=== PATIENT | female | born 2000 | race Hispanic/Latino ===

== ENCOUNTER → 2023-12-12 | Emergency (ER) | payer SELFPAY ==
--- OUTSIDE RECORDS SUMMARY | 2023-12-12 21:21 | XMS REPORT | Continuity of Care Document ---
Author Name Unknown Address [address] [place] [address] [facility] Address [address] [place] [address] Care Team Providers Care Noc Engineer Name Role Phone YULIA LOVE Primary Care Physician Unavailab ARTURO Brody Attending Clinician Unavaila YULIA Rodríguez Attending Clinician Unavailable Yulia Morrell Attending Clinician [phone] Visit/Fp, [facility] Nurse Attending Clinician Un available John Chadwick MD Attending Clinician + [phone] Mae Resendiz DO Attending Clinician [phone] Kahlil Lima MD Attending Clinician [phone] Gayla Harris MD Attending Clinician [phone] Korey Yo DO Attending Clinician [phone] OUMOU FREEMAN Attending Clinician Unavailable Oumou Freeman PA-C Attending Clinician + [phone] 2, [facility] Nst Ultrasound Attending Clinician Unavailable 5, [facility] Usg Room Attending Clinician Unavaila JULIA Cornelius Attending Clinician Unavailable Julia Ramirez MD Attending Clinician [phone] Provider, [facility] Temp Attending Clinician Angela TAMI Whitaker Attending Clinician UnavailTAMI Gusman Attending Clinician UnavailDARA Heath Attending Clinician Unavailable DARA CARNEY Attending Clinician Unavailable Dara Carney MD Attending Clinician [phone] MAE RESENDIZ Attending Clinician Unavailable 3, [facility] Room Attending Clinician Unavailadela Farias MD, Felicitas Yepez Attending Clinician + Ronak Herr MD Attending Clinician + [phone] RONAK HERR Attending Clinician Unavaila GLADYS [place] Attending Clinician Unavailable Gladys Romeor MD Attending Clinician [phone] Marta WELLER, Hailey Attending Clinician UnavailRIC Elder Attending Clinician Unavailable RIC CAMPOVERDE Attending Clinician Unavailable Fellow, [facility] Attending Clinician Un available Ric Campoverde MD Attending Clinician [phone] Lab, [facility] Attending Clinician Unavailable 2, [facility] Room Attending Clinician UnavailAravind Hazel MD Attending Clinician + [phone] ARAVIND FISHER Attending Clinician UnavailYAMILEX Haynes Attending Clinician Unavailable Yamilex Vela MD Attending Clinician [phone] Pastor WELLER, Annamarie Collier Attending Clinician Unavaila ISIS Alanis Attending Clinician Unavaila Yamilex Will DO Attending Clinician [phone] YAMILEX STEPHENS Attending Clinician Unavailab JESÚS Watson Attending Clinician Unavailable Pgy1 Attending Clinician Unavailable Jesús Jennings MD Attending Clinician + [phone] Doctor Unassigned, [place] Attending Clinician U Inessa Rao Attending Clinician Unavailable Doc Mccormick Attending Clinician Unavailable Ye Bettencourt Attending Clinician Unavailable Bisi Valladares MD Attending Clinician [phone] BISI VALLADARES Attending Clinician Unavailable KOREY YO Admitting Clinician Unavailable Mae Resendiz DO Admitting Clinician [phone] MAE RESENDIZ Admitting Clinician Unavailable JULIA RAMIREZ Admitting Clinician Unavailable Julia Ramirez MD Admitting Clinician DARA CARNEY Admitting Clinician Unavailable Dara Carney MD Admitting Clinician GLADYS ROMERO Admitting Clinician Unavailable Gladys Romero MD Admitting Clinician YAMILEX STEPHENS Admitting Clinician Unavailab BISI Cortes Admitting Clinician Unavailable Payers Payer Name Policy Type Policy Number Effective Date Expirati on Date Source [facility] [id number] 2021 00:00:00 MEDICAID PENDING PENDING 2021 00:00:00 Problems Condition Name Condition Details Condition Category Status Onset Date Resolution Date Last Treatment Date Treating Clinician Comments Source delivery delivered delivery delivered Disease Active 2021-0 7-29 00:00: 00 [facility] hemorrhage hemorrhage Disease Active 0 7-29 00:00: 00 [facility] Chronic hypertensi on Chronic hypertensi on Disease Active 2021-0 7-29 00:00: 00 [facility] delivery delivered delivery delivered Disease Active 2021-0 7-29 00:00: 00 [facility] 37 weeks gestation of 37 weeks gestation of Disease Active 2021-0 7-23 00:00: 00 [facility] 36 weeks gestation of 36 weeks gestation of Disease Active 2021-0 7-21 00:00: 00 [facility] Vaginal discharge during in third trimester Vaginal discharge during in third trimester Disease Active 2021-0 6-28 00:00: 00 [facility] CARLITOS (amniotic fluid index) borderline low CARLITOS (amniotic fluid index) borderline low Disease Active 2021-0 6-26 00:00: 00 [facility] 33 weeks gestation of 33 weeks gestation of Disease Active 2021-0 6-25 00:00: 00 [facility] 32 weeks gestation of 32 weeks gestation of Disease Active 2021-0 6-24 00:00: 00 [facility] 28 weeks gestation of 28 weeks gestation of Disease Active 2021-0 5-22 00:00: 00 [facility] Morbid obesity with body mass index of 40.0-49.9 Morbid obesity with body mass index of 40.0-49.9 Disease Active 01-03 00:00: 00 [facility] 23 weeks gestation of 23 weeks gestation of Disease Active 01-03 00:00: 00 [facility] Chronic hypertensi on affecting Chronic hypertensi on affecting Disease Active 01-03 00:00: 00 [facility] Sciatica of left side Sciatica of left side Disease Active 01-03 00:00: 00 [facility] Allergies, Adverse Reactions, Alerts Allergy Name Allergy Type Status Severity Reaction(s) Onset Date Inactive Date Treating Clinician Comments Source [facility]EDI Active Med ITCHING 2020-09 00:00: 00 [facility] Allergy Active Itching 2020-09 00:00: 00 [facility] Social History Social Habit Start Date Stop Date Quantity Comments Source ASSERTION 2021-08-08 00:00:00 [facility] to SARS-CoV-2 (event) 2022-05-15 00:00:00 2022-05-25 14:02:00 Not sure [facility] Alcohol intake 2021-10-30 00:00:00 2021-10-30 00:00:00 Ex-drinker (finding) [facility] History of Social function 2021-09-10 00:00:00 2021-09-10 00:00:00 [facility] Tobacco use and exposure 2013-12-17 00:00:00 2013-12-17 00:00:00 Smokeless tobacco non-user [facility] Sex Assigned At 2000 00:00:00 2000 00:00:00 [facility] Smoking Status Start Date Stop Date Source Never smoked tobacco [facility] Medications Ordered Medication Name Filled Medication Name Start Date Stop Date Current Medication? Ordering Clinician Indication Dosage Frequency Signature (SIG) Comments Components Source norethindro ne-e.estrad ioL-iron (MICROGESTI N FE) 1.5 mg-30 mcg (21)/75 mg (7) per tablet 05-04 00:00: 00 Yes [id number] 1{tbl} Take 1 tablet by mouth in the morning. [facility] stephen nemichelle.estrad ioL-iron (MICROGESTI N FE) 1.5 mg-30 mcg (21)/75 mg (7) per tablet 05-04 00:00: 00 Yes [id number] 1{tbl} Take 1 tablet by mouth in the morning. [facility] foLIC acid 1 mg tablet 04-14 00:00: 00 06-14 04:59 :00 No [id number] 1mg Take 1 tablet by mouth in the morning for 60 days. [facility] foLIC acid 1 mg tablet 04-14 00:00: 00 06-14 04:59 :00 No [id number] 1mg Take 1 tablet by mouth in the morning for 60 days. [facility] foLIC acid 1 mg tablet 04-14 00:00: 00 06-14 04:59 :00 No [id number] 1mg Take 1 tablet by mouth in the morning for 60 days. [facility] foLIC acid 1 mg tablet 04-14 00:00: 00 06-14 04:59 :00 No [id number] 1mg Take 1 tablet by mouth in the morning for 60 days. [facility] ibuprofen (IBU) tablet 600 mg 04-13 17:00: 00 Yes 600mg 600 mg, Oral, Q6H, First dose (after last modificati on) on Tue04/13/22 at 1200, Until Discontinu ed, Routine [facility] vitamin w/FA tablet 04-13 00:00: 00 Yes [id number] 1{tbl} Take 1 tablet by mouth in the morning. [facility] docusate 100 mg capsule 04-13 00:00: 00 Yes [id number] 200mg Take 2 capsules by mouth once daily as needed for Constipati on. [facility] ferrous sulfate 325 mg (65 mg iron) tablet 04-13 00:00: 00 Yes [id number] 325mg Take 1 tablet by mouth in the morning and 1 tablet in the evening. [facility] ibuprofen 600 mg tablet 04-13 00:00: 00 Yes [id number] 600mg Take 1 tablet by mouth every 6 (six) hours as needed (Pain). Take with food or milk. [facility] HYDROcodone -acetaminop hen 5-325 mg tablet 04-13 00:00: 00 Yes [id number] 1{tbl} Take 1 tablet by mouth every 6 (six) hours as needed (Pain) for up to 10 doses. Do not exceed 3 grams of acetaminop hen in 24 hours. Indication s: acute pain [facility] vitamin w/FA tablet 04-13 00:00: 00 Yes [id number] 1{tbl} Take 1 tablet by mouth in the morning. [facility] docusate 100 mg capsule 04-13 00:00: 00 Yes [id number] 200mg Take 2 capsules by mouth once daily as needed for Constipati on. [facility] ferrous sulfate 325 mg (65 mg iron) tablet 04-13 00:00: 00 Yes [id number] 325mg Take 1 tablet by mouth in the morning and 1 tablet in the evening. [facility] ibuprofen 600 mg tablet 04-13 00:00: 00 Yes [id number] 600mg Take 1 tablet by mouth every 6 (six) hours as needed (Pain). Take with food or milk. [facility] HYDROcodone -acetaminop hen 5-325 mg tablet 04-13 00:00: 00 Yes [id number] 1{tbl} Take 1 tablet by mouth every 6 (six) hours as needed (Pain) for up to 10 doses. Do not exceed 3 grams of acetaminop hen in 24 hours. Indication s: acute pain [facility] vitamin w/FA tablet 04-13 00:00: 00 Yes [id number] 1{tbl} Take 1 tablet by mouth in the morning. [facility] docusate 100 mg capsule 04-13 00:00: 00 Yes [id number] 200mg Take 2 capsules by mouth once daily as needed for Constipati on. [facility] ferrous sulfate 325 mg (65 mg iron) tablet 04-13 00:00: 00 Yes [id number] 325mg Take 1 tablet by mouth in the morning and 1 tablet in the evening. [facility] ibuprofen 600 mg tablet 04-13 00:00: 00 Yes [id number] 600mg Take 1 tablet by mouth every 6 (six) hours as needed (Pain). Take with food or milk. [facility] HYDROcodone -acetaminop hen 5-325 mg tablet 04-13 00:00: 00 Yes [id number] 1{tbl} Take 1 tablet by mouth every 6 (six) hours as needed (Pain) for up to 10 doses. Do not exceed 3 grams of acetaminop hen in 24 hours. Indication s: acute pain [facility] vitamin w/FA tablet 04-13 00:00: 00 Yes [id number] 1{tbl} Take 1 tablet by mouth in the morning. [facility] docusate 100 mg capsule 04-13 00:00: 00 Yes [id number] 200mg Take 2 capsules by mouth once daily as needed for Constipati on. [facility] ferrous sulfate 325 mg (65 mg iron) tablet 04-13 00:00: 00 Yes [id number] 325mg Take 1 tablet by mouth in the morning and 1 tablet in the evening. [facility] ibuprofen 600 mg tablet 04-13 00:00: 00 Yes [id number] 600mg Take 1 tablet by mouth every 6 (six) hours as needed (Pain). Take with food or milk. [facility] HYDROcodone -acetaminop hen 5-325 mg tablet 04-13 00:00: 00 Yes [id number] 1{tbl} Take 1 tablet by mouth every 6 (six) hours as needed (Pain) for up to 10 doses. Do not exceed 3 grams of acetaminop hen in 24 hours. Indication s: acute pain [facility] ascorbic acid, vitamin C, 500 mg tablet 04-13 00:00: 00 06-13 04:59 :00 No [id number] 500mg Take 1 tablet by mouth in the morning and 1 tablet at noon and 1 tablet in the evening. Do all this for 60 days. [facility] ascorbic acid, vitamin C, 500 mg tablet 04-13 00:00: 00 06-13 04:59 :00 No [id number] 500mg Take 1 tablet by mouth in the morning and 1 tablet at noon and 1 tablet in the evening. Do all this for 60 days. [facility] ascorbic acid, vitamin C, 500 mg tablet 04-13 00:00: 00 06-13 04:59 :00 No [id number] 500mg Take 1 tablet by mouth in the morning and 1 tablet at noon and 1 tablet in the evening. Do all this for 60 days. [facility] ascorbic acid, vitamin C, 500 mg tablet 04-13 00:00: 00 06-13 04:59 :00 No [id number] 500mg Take 1 tablet by mouth in the morning and 1 tablet at noon and 1 tablet in the evening. Do all this for 60 days. [facility] human papillomav vac,9-tristen(P F) (GARDASIL-9 ) syringe 0.5 mL 04-12 19:51: 39 Yes .5mL 0.5 mL, Intramuscu lar, ONCE-PRIOR TO DISCHARGE, 1 dose, Starting on Tue04/12/22 at 1451, Until Discontinu ed, Routine, Give vaccine prior to discharge [facility] foLIC acid (FOLATE) tablet 1 mg 04-12 14:00: 00 Yes 1mg 1 mg, Oral, DAILY, First dose on Tue04/12/22 at 0900, Until Discontinu ed, Routine [facility] foLIC acid (FOLATE) tablet 1 mg 04-12 14:00: 00 Yes 1mg 1 mg, Oral, DAILY, First dose on Tue04/12/22 at 0900, Until Discontinu ed, Routine [facility] ferrous sulfate tablet 325 mg 04-12 13:00: 00 Yes 325mg 325 mg, Oral, TID MEALS, First dose on Tue04/12/22 at 0800, Until Discontinu ed, Routine [facility] ascorbic acid (vitamin C) (VITAMIN C) tablet 500 mg 04-12 13:00: 00 Yes 500mg 500 mg, Oral, TID, First dose on Tue04/12/22 at 0800, Until Discontinu ed, Routine [facility] ferrous sulfate tablet 325 mg 04-12 13:00: 00 Yes 325mg 325 mg, Oral, TID MEALS, First dose on Tue04/12/22 at 0800, Until Discontinu ed, Routine [facility] ascorbic acid (vitamin C) (VITAMIN C) tablet 500 mg 04-12 13:00: 00 Yes 500mg 500 mg, Oral, TID, First dose on Tue04/12/22 at 0800, Until Discontinu ed, Routine [facility] rho(D) immune globulin (RHOGAM) syringe 300 mcg 04-12 12:07: 26 Yes 300ug 300 mcg, Intramuscu lar, ONCE, For 1 dose, Conditiona l, Routine [facility] rho(D) immune globulin (RHOGAM) syringe 300 mcg 04-12 12:07: 26 Yes 300ug 300 mcg, Intramuscu lar, ONCE, For 1 dose, Conditiona l, Routine [facility] HYDROcodone -acetaminop hen (NORCO 5) 5-325 mg tablet 2 tablet 04-12 12:07: 19 Yes 2{tbl} 2 tablet, Oral, Q6HPRN, Starting on Tue04/12/22 at 0707, Until Discontinu ed, Routine, Pain (scale 7-10), Alternate with Ibuprofen [facility] HYDROcodone -acetaminop hen (NORCO 5) 5-325 mg tablet 1 tablet 04-12 12:07: 19 Yes 1{tbl} 1 tablet, Oral, Q6HPRN, Starting on Tue04/12/22 at 0707, Until Discontinu ed, Routine, Pain (scale 4-6), Alternate with Ibuprofen [facility] ibuprofen (IBU) tablet 600 mg 04-12 12:07: 19 Yes 600mg 600 mg, Oral, Q6HPRN, Starting on Tue04/12/22 at 0707, Until Discontinu ed, Routine, Pain (scale 1-3) [facility] diphenhydrA MINE (BENADRYL) injection 25 mg 04-12 12:07: 19 Yes 25mg 25 mg, Slow IV Push, Q6HPRN, Starting on Tue04/12/22 at 0707, Until Discontinu ed, Routine, Itching [facility] diphenhydrA MINE (BENADRYL) tablet 25 mg 04-12 12:07: 19 Yes 25mg 25 mg, Oral, Q6HPRN, Starting on Tue04/12/22 at 07, Until Discontinu ed, Routine, Sleep, Itching [facility] ondansetron (ZOFRAN (PF)) injection 4 mg 04-12 12:07: 19 Yes 4mg 4 mg, Slow IV Push, Q8HPRN, Starting on Tue04/12/22 at 0707, Until Discontinu ed, Routine, Nausea and Vomiting (N/V) [facility] bisacodyL (DULCOLAX) suppository 10 mg 04-12 12:07: 19 Yes 10mg 10 mg, Rectal, QDAILYPRN, Starting on Tue04/12/22 at 0707, Until Discontinu ed, Routine, Constipati on [facility] simethicone (GAS RELIEF (SIMETHICON E)) chewable tablet 160 mg 04-12 12:07: 19 Yes 160mg 160 mg, Oral, PC+HSPRN, Starting on Tue04/12/22 at 0707, Until Discontinu ed, Routine, Gas [facility] docusate (COLACE) capsule 200 mg 04-12 12:07: 19 Yes 200mg 200 mg, Oral, QDAILYPRN, Starting on Tue04/12/22 at 0707, Until Discontinu ed, Routine, Constipati on [facility] magnesium hydroxide (MILK OF MAGNESIA) 400 mg/5 mL suspension 30 mL 04-12 12:07: 19 Yes 30mL 30 mL, Oral, QDAILYPRN, Starting on Tue04/12/22 at 0707, Until Discontinu ed, Routine, Constipati on [facility] HYDROcodone -acetaminop hen (NORCO 5) 5-325 mg tablet 2 tablet 04-12 12:07: 19 Yes 2{tbl} 2 tablet, Oral, Q6HPRN, Starting on Tue04/12/22 at 07, Until Discontinu ed, Routine, Pain (scale 7-10), Alternate with Ibuprofen [facility] HYDROcodone -acetaminop hen (NORCO 5) 5-325 mg tablet 1 tablet 04-12 12:07: 19 Yes 1{tbl} 1 tablet, Oral, Q6HPRN, Starting on Tue04/12/22 at 0707, Until Discontinu ed, Routine, Pain (scale 4-6), Alternate with Ibuprofen [facility] diphenhydrA MINE (BENADRYL) injection 25 mg 04-12 12:07: 19 Yes 25mg 25 mg, Slow IV Push, Q6HPRN, Starting on Tue04/12/22 at 0707, Until Discontinu ed, Routine, Itching [facility] diphenhydrA MINE (BENADRYL) tablet 25 mg 04-12 12:07: 19 Yes 25mg 25 mg, Oral, Q6HPRN, Starting on Tue04/12/22 at 0707, Until Discontinu ed, Routine, Sleep, Itching [facility] ondansetron (ZOFRAN (PF)) injection 4 mg 04-12 12:07: 19 Yes 4mg 4 mg, Slow IV Push, Q8HPRN, Starting on Tue04/12/22 at 0707, Until Discontinu ed, Routine, Nausea and Vomiting (N/V) [facility] bisacodyL (DULCOLAX) suppository 10 mg 04-12 12:07: 19 Yes 10mg 10 mg, Rectal, QDAILYPRN, Starting on Tue04/12/22 at 0707, Until Discontinu ed, Routine, Constipati on [facility] simethicone (GAS RELIEF (SIMETHICON E)) chewable tablet 160 mg 04-12 12:07: 19 Yes 160mg 160 mg, Oral, PC+HSPRN, Starting on Tue04/12/22 at 0707, Until Discontinu ed, Routine, Gas [facility] docusate (COLACE) capsule 200 mg 04-12 12:07: 19 Yes 200mg 200 mg, Oral, QDAILYPRN, Starting on Tue04/12/22 at 0707, Until Discontinu ed, Routine, Constipati on [facility] magnesium hydroxide (MILK OF MAGNESIA) 400 mg/5 mL suspension 30 mL 04-12 12:07: 19 Yes 30mL 30 mL, Oral, QDAILYPRN, Starting on Tue04/12/22 at 0707, Until Discontinu ed, Routine, Constipati on [facility] ibuprofen (IBU) tablet 600 mg 04-12 12:07: 19 04-13 11:18 :16 No 600mg 600 mg, Oral, Q6HPRN, Starting on Tue04/12/22 at 0707, Until Tue04/13/22 at 0618, Routine, Pain (scale 1-3) [facility] lactated ringers IV infusion 500 mL 04-12 06:45: 00 Yes 500mL at 75 mL/hr, 500 mL, IV Infusion, CONTINUOUS , Starting on Tue04/12/22 at 0145, Until Discontinu ed, Routine, PACU [facility] lactated ringers IV infusion 500 mL 04-12 06:45: 00 Yes 500mL at 75 mL/hr, 500 mL, IV Infusion, CONTINUOUS , Starting on Tue04/12/22 at 0145, Until Discontinu ed, Routine, PACU [facility] diphenoxyla te-atropine (LOMOTIL) 2.5-0.025 mg tablet 1 tablet 04-12 06:45: 00 04-12 06:31 :00 No 1{tbl} 1 tablet, Oral, ONCE, 1 dose, On Tue04/12/22 at 0145, Routine [facility] HYDROmorpho ne (DILAUDID) injection 0.2 mg 04-12 06:42: 06 Yes .2mg 0.2 mg, Slow IV Push, Q5MIN PRN, 10 doses, Starting on Tue04/12/22 at 0142, Until Discontinu ed, Routine, Pain (scale 7-10), PACU
Us e approved by (Faculty): PACU USE -ANESTHESI A SERVICE-HY DROMORPHON E INJECTIONS [facility] FENTanyl PF (SUBLIMAZE (PF)) injection 25 mcg 04-12 06:42: 06 Yes 25ug 25 mcg, Slow IV Push, Q5MIN PRN, 4 doses, Starting on Tue04/12/22 at 0142, Until Discontinu ed, Routine, Pain (scale 4-6), PACU [facility] HYDROmorpho ne (DILAUDID) injection 0.2 mg 04-12 06:42: 06 Yes .2mg 0.2 mg, Slow IV Push, Q5MIN PRN, 10 doses, Starting on Tue04/12/22 at 0142, Until Discontinu ed, Routine, Pain (scale 7-10), PACU
Us e approved by (Faculty): PACU USE -ANESTHESI A SERVICE-HY DROMORPHON E INJECTIONS [facility] FENTanyl PF (SUBLIMAZE (PF)) injection 25 mcg 04-12 06:42: 06 Yes 25ug 25 mcg, Slow IV Push, Q5MIN PRN, 4 doses, Starting on Tue04/12/22 at 0142, Until Discontinu ed, Routine, Pain (scale 4-6), PACU [facility] acetaminoph en ADULT (OFIRMEV) injection 1,000 mg 04-12 06:42: 06 04-12 07:06 :00 No 1000mg 1,000 mg, IV Infusion, at 400 mL/hr Administer over 15 Minutes, Q4HPRN, 1 dose, Starting on Tue04/12/22 at 0142, Until Tue04/12/22 at 0206, Routine, Pain (scale 1-3), PACU
In dication: Perioperat prashant Patient [facility] FENTanyl PF (SUBLIMAZE (PF)) injection 04-12 05:49: 00 04-12 06:29 :32 No Slow IV Push, ONCE INTRA PROCEDURE, Starting on Tue04/12/22 at 0049, Until Tue04/12/22 at 012, Routine, Intra-op [facility] morpHINE PF (DURAMORPH- PF) injection 04-12 05:35: 00 04-12 06:29 :32 No Epidural, ONCE INTRA PROCEDURE, Starting on Tue04/12/22 at 0035, Until Tue04/12/22 at 012, Routine, Intra-op [facility] albumin (ALBUTEIN 5 %) 5 % injection 04-12 05:31: 00 04-12 06:29 :32 No IV Infusion, CONTINUOUS PRN, Starting on Tue04/12/22 at 0031, Until Tue04/12/22 at 012, Intra-op [facility] tranexamic acid (CYKLOKAPRO N) injection 04-12 05:25: 00 04-12 06:29 :32 No IV Infusion, ONCE INTRA PROCEDURE, Starting on Tue04/12/22 at 0025, Until Tue04/12/22 at 012, Routine, Intra-op [facility] oxytocin (PITOCIN) 30 units in NS 500 mL IV infusion 04-12 05:24: 00 04-12 06:29 :32 No IV Infusion, CONTINUOUS PRN, Starting on Tue04/12/22 at 0024, Until Tue04/12/22 at 0129, Routine, Intra-op [facility] oxytocin (PITOCIN) 30 units in NS 500 mL IV infusion 04-12 05:24: 00 04-12 06:29 :32 No IV Infusion, CONTINUOUS PRN, Starting on Tue04/12/22 at 0024, Until Tue04/12/22 at 0129, Routine, Intra-op [facility] ketamine (KETALAR) injection 04-12 05:24: 00 04-12 06:29 :32 No Intravenou s, ONCE INTRA PROCEDURE, Starting on Tue04/12/22 at 0024, Until Tue04/12/22 at 0129, Routine, Intra-op [facility] FENTanyl PF (SUBLIMAZE (PF)) injection 04-12 05:20: 00 04-12 06:29 :32 No Epidural, ONCE INTRA PROCEDURE, Starting on Tue04/12/22 at 0020, Until Tue04/12/22 at 012, Routine, Intra-op [facility] midazolam (VERSED) injection 04-12 05:20: 00 04-12 06:29 :32 No IV Push, ONCE INTRA PROCEDURE, Starting on Tue04/12/22 at 0020, Until Tue04/12/22 at 012, Routine, Intra-op [facility] phenylephri ne (VAZCULEP) injection 04-12 05:19: 00 04-12 06:29 :32 No Intravenou s, CONTINUOUS PRN, Starting on Tue04/12/22 at 0019, Until Tue04/12/22 at 0129, Routine, [facility] [place] lactated ringers IV infusion 04-12 05:13: 00 04-12 06:29 :32 No IV Infusion, CONTINUOUS PRN, Starting on Tue04/12/22 at 0013, Until Tue04/12/22 at 012, Routine, Intra-op [facility] HYDROcodone -acetaminop hen (NORCO) 10-325 mg tablet 1 tablet 04-12 05:09: 48 04-12 10:17 :00 No 1{tbl} 1 tablet, Oral, Q6HPRN, 1 dose, Starting on Tue04/12/22 at 0009, Until Discontinu ed, Routine, Pain (scale 7-10) [facility] ceFAZolin (ANCEF) injection 04-12 05:05: 22 04-12 06:29 :32 No Slow IV Push, ONCE INTRA PROCEDURE, Starting on Tue04/12/22 at 0005, Until Tue04/12/22 at 0129, NICKO, Intra-op [facility] lidocaine-e pinephrine (XYLOCAINE W/EPINEPHRI NE) 2 %-1:200,000 injection 04-12 05:01: 00 04-12 06:29 :32 No Intravenou s, ONCE INTRA PROCEDURE, Starting on Tue04/12/22 at 0001, Until Tue04/12/22 at 0129, Routine, Intra-op [facility] azithromyci n (ZITHROMAX) 500 mg in NaCl 0.9% (NS) 250 mL VIAL-MATE IV piggyback 04-12 03:41: 20 04-12 05:09 :00 No 500mg 500 mg, IV Piggyback, O.R. HOLDING ONCE, 1 dose, Starting on Tue04/11/22 at 2241, Until Discontinu ed, Administer over 60 Minutes, 250 mL
Reas on for Anti-Infec tive: Surgical Prophylaxi s
Kang rgical Prophylaxi s: HUMAN RELATIONS MANAGER
Duration of therapy: within 24 hours of surgery
Reason for Anti-Infec tive: Surgical Prophylaxi s [facility] terbutaline (BRETHINE) injection 0.25 mg 04-12 03:15: 00 04-12 02:27 :00 No .25mg 0.25 mg, Subcutaneo us, ONCE, 1 dose, On Tue04/11/22 at 2215, Routine [facility] sodium citrate-cit hair acid (BICITRA) 500-334 mg/5 mL solution 30 mL 04-11 21:57: 09 04-12 04:48 :00 No 30mL 30 mL, Oral, PRE-PROCED URE ONCE, 1 dose, Starting on Tue04/11/22 at 1657, Until Discontinu ed, Routine, Surgery/Pr ocedure [facility] lactated ringers IV infusion 500 mL 04-11 21:57: 09 04-11 22:26 :00 No 500mL at 999 mL/hr, 500 mL, IV Infusion, PRN - SEE INSTRUCTIO NS, 1 dose, Starting on Tue04/11/22 at 1657, Until Tue04/11/22 at 1726, Routine [facility] ropivacaine 0.2 % (NAROPIN (PF)) epidural infusion 04-11 14:58: 00 04-12 06:29 :32 No Epidural, CONTINUOUS PRN, Starting on Tue04/11/22 at 0958, Until Tue04/12/22 at 0129, Routine, Intra-op [facility] lidocaine-e pinephrine (XYLOCAINE W/EPINEPHRI NE) 1.5 %-1:200,000 injection 04-11 14:56: 00 04-12 06:29 :32 No Intraderma l, ONCE INTRA PROCEDURE, Starting on Tue04/11/22 at 0956, Until Tue04/12/22 at 0129, Routine, Intra-op [facility] proMETHazin e (PHENERGAN) 12.5 mg in NS 50 mL IV piggyback (CNR) 04-11 11:00: 00 04-11 13:05 :00 No 12.5mg 12.5 mg, IV Piggyback, at 200 mL/hr Administer over 15 Minutes, ONCE, 1 dose, On Tue04/11/22 at 0600, Routine [facility] butorphanol (STADOL) injection 1 mg 04-11 11:00: 00 04-11 10:11 :00 No 1mg 1 mg, IV Push, ONCE, 1 dose, On Tue04/11/22 at 0600, Routine [facility] oxytocin (PITOCIN) 30 units in NS 500 mL IV infusion 04-11 06:44: 13 04-12 12:07 :23 No 2mU/min at 2-40 mL/hr, IV Infusion, TITRATE, Starting on Tue04/11/22 at 0144, Until Tue04/12/22 at 0707, [facility] butorphanol (STADOL) injection 1 mg 04-11 04:45: 00 04-11 03:47 :00 No 1mg 1 mg, IV Push, ONCE, 1 dose, On 04/10/22 at 2345, Routine [facility] proMETHazin e (PHENERGAN) 12.5 mg in NS 50 mL IV piggyback (CNR) 04-11 04:45: 00 04-11 04:33 :00 No 12.5mg 12.5 mg, IV Piggyback, at 200 mL/hr Administer over 15 Minutes, ONCE, 1 dose, On 04/10/22 at 2345, Routine [facility] labetaloL (NORMODYNE) tablet 100 mg 04-11 01:00: 00 Yes 100mg 100 mg, Oral, Q12H, First dose on 04/10/22 at 2000, Until Discontinu ed, Routine [facility] labetaloL (NORMODYNE) tablet 100 mg 04-11 01:00: 00 Yes 100mg 100 mg, Oral, Q12H, First dose on 04/10/22 at 2000, Until Discontinu ed, Routine [facility] butorphanol (STADOL) injection 1 mg 04-10 21:15: 00 04-10 20:28 :00 No 1mg 1 mg, IV Push, ONCE, 1 dose, On 04/10/22 at 1615, Routine [facility] D5W-LR IV infusion 1,000 mL 04-10 16:15: 00 04-12 12:07 :23 No 1000mL at 125 mL/hr, IV Infusion, CONTINUOUS , Starting on 04/10/22 at 1115, Until 04/12/22 at 0707, Routine [facility] sodium citrate-cit hair acid (BICITRA) 500-334 mg/5 mL solution 30 mL 04-10 16:07: 56 04-11 14:41 :00 No 30mL 30 mL, Oral, PRE-PROCED URE ONCE, 1 dose, Starting on 04/10/22 at 1107, Until Discontinu ed, Routine, Surgery/Pr ocedure [facility] lactated ringers IV infusion 500 mL 04-10 16:07: 55 04-12 12:07 :23 No 500mL at 999 mL/hr, 500 mL, IV Infusion, PRN - SEE INSTRUCTIO NS, Starting on 04/10/22 at 1107, Until 04/12/22 at 0707, Routine [facility] betamethaso ne acet,sod phos (CELESTONE SOLUSPAN) 6 mg/mL injection 12 mg 03-14 17:00: 00 03-14 16:47 :00 No 12mg 12 mg, Intramuscu lar, ONCE, 1 dose, On 03/14/22 at 1200, Routine [facility] aspirin EC tablet 81 mg 03-13 14:00: 00 Yes 81mg 81 mg, Oral, DAILY, First dose on 03/13/22 at 0900, Until Discontinu ed, Routine [facility] vitamin w/FA tablet 1 tablet 03-13 14:00: 00 Yes 1{tbl} 1 tablet, Oral, DAILY, First dose on 03/13/22 at 0900, Until Discontinu ed, Routine [facility] labetaloL (NORMODYNE) tablet 100 mg 03-13 13:00: 00 Yes 100mg 100 mg, Oral, Q12H, First dose on 03/13/22 at 0800, Until Discontinu ed, Routine [facility] betamethaso ne acet,sod phos (CELESTONE SOLUSPAN) 6 mg/mL injection 12 mg 03-13 08:45: 00 Yes 12mg 12 mg, Intramuscu lar, Q24H, First dose on 03/13/22 at 0345, Until Discontinu ed, Routine [facility] alum-mag hydroxide-s imeth (MAALOX PLUS / MAG-AL PLUS) 200-200-20 mg/5 mL suspension 30 mL 03-13 06:02: 13 Yes 30mL 30 mL, Oral, Q6HPRN, Starting on 03/13/22 at 0102, Until Discontinu ed, Routine, Indigestio n [facility] docusate (COLACE) capsule 200 mg 03-13 06:02: 13 Yes 200mg 200 mg, Oral, QHSPRN, Starting on 03/13/22 at 0102, Until Discontinu ed, Routine, Constipati on [facility] magnesium hydroxide (MILK OF MAGNESIA) 400 mg/5 mL suspension 30 mL 03-13 06:02: 13 Yes 30mL 30 mL, Oral, QDAILYPRN, Starting on 03/13/22 at 0102, Until Discontinu ed, Routine, Constipati on [facility] acetaminoph en (TYLENOL) tablet 1,000 mg 03-13 03:45: 00 03-13 02:54 :00 No 1000mg 1,000 mg, Oral, ONCE, 1 dose, On Tue03/12/22 at 2245, Routine [facility] lactated ringers IV infusion 500 mL 03-13 03:30: 00 03-13 02:50 :00 No 500mL at 999 mL/hr, 500 mL, Intravenou s, ONCE, 1 dose, On Tue03/12/22 at 2230, Routine [facility] labetaloL 100 mg tablet 01-08 00:00: 00 Yes [id number] 100mg Take 1 tablet by mouth every 12 (twelve) hours. [facility] aspirin 81 mg EC tablet 01-08 00:00: 00 Yes [id number] 81mg Take 1 tablet by mouth daily. [facility] labetaloL 100 mg tablet 01-08 00:00: 00 Yes [id number] 100mg Take 1 tablet by mouth every 12 (twelve) hours. [facility] aspirin 81 mg EC tablet 01-08 00:00: 00 Yes [id number] 81mg Take 1 tablet by mouth daily. [facility] labetaloL 100 mg tablet 01-08 00:00: 00 Yes [id number] 100mg Take 1 tablet by mouth every 12 (twelve) hours. [facility] aspirin 81 mg EC tablet 2021-0 4-22 00:00: 00 Yes [id number] 81mg Take 1 tablet by mouth daily. [facility] labetaloL 100 mg tablet 2021-0 4-22 00:00: 00 Yes [id number] 100mg Take 1 tablet by mouth every 12 (twelve) hours. [facility] aspirin 81 mg EC tablet 2021-0 4-22 00:00: 00 Yes [id number] 81mg Take 1 tablet by mouth daily. [facility] labetaloL 100 mg tablet 2021-0 4-22 00:00: 00 Yes [id number] 100mg Take 1 tablet by mouth every 12 (twelve) hours. [facility] aspirin 81 mg EC tablet 2021-0 22 00:00: 00 Yes [id number] 81mg Take 1 tablet by mouth daily. [facility] labetaloL 100 mg tablet 2021-0 22 00:00: 00 Yes [id number] 100mg Take 1 tablet by mouth every 12 (twelve) hours. [facility] aspirin 81 mg EC tablet 2021-0 22 00:00: 00 Yes [id number] 81mg Take 1 tablet by mouth daily. [facility] labetaloL 100 mg tablet 2021-0 22 00:00: 00 Yes [id number] 100mg Take 1 tablet by mouth every 12 (twelve) hours. [facility] aspirin 81 mg EC tablet 2021-0 22 00:00: 00 Yes [id number] 81mg Take 1 tablet by mouth daily. [facility] labetaloL 100 mg tablet 2-0 4-22 00:00: 00 Yes [id number] 100mg Take 1 tablet by mouth every 12 (twelve) hours. [facility] aspirin 81 mg EC tablet 2021-0 4-22 00:00: 00 Yes [id number] 81mg Take 1 tablet by mouth daily. [facility] labetaloL 100 mg tablet 2-0 4-22 00:00: 00 Yes [id number] 100mg Take 1 tablet by mouth every 12 (twelve) hours. [facility] aspirin 81 mg EC tablet 2022-0 4-22 00:00: 00 Yes [id number] 81mg Take 1 tablet by mouth daily. [facility] labetaloL 100 mg tablet 2021-0 4-22 00:00: 00 Yes [id number] 100mg Take 1 tablet by mouth every 12 (twelve) hours. [facility] labetaloL 100 mg tablet 2021-0 4-22 00:00: 00 Yes [id number] 100mg Take 1 tablet by mouth every 12 (twelve) hours. [facility] labetaloL 100 mg tablet 2021-0 -22 00:00: 00 Yes [id number] 100mg Take 1 tablet by mouth every 12 (twelve) hours. [facility] labetaloL 100 mg tablet 2021-0 22 00:00: 00 Yes [id number] 100mg Take 1 tablet by mouth every 12 (twelve) hours. [facility] labetaloL 100 mg tablet 2021-0 22 00:00: 00 Yes [id number] 100mg Take 1 tablet by mouth every 12 (twelve) hours. [facility] labetaloL 100 mg tablet 2021-0 22 00:00: 00 Yes [id number] 100mg Take 1 tablet by mouth every 12 (twelve) hours. [facility] labetaloL 100 mg tablet 2021-0 22 00:00: 00 Yes [id number] 100mg Take 1 tablet by mouth every 12 (twelve) hours. [facility] aspirin 81 mg EC tablet 2021-0 22 00:00: 00 Yes [id number] 81mg Take 1 tablet by mouth daily. [facility] labetaloL 100 mg tablet 2-0 22 00:00: 00 Yes [id number] 100mg Take 1 tablet by mouth every 12 (twelve) hours. [facility] aspirin 81 mg EC tablet 2-0 -22 00:00: 00 Yes [id number] 81mg Take 1 tablet by mouth daily. [facility] labetaloL 100 mg tablet 2-0 4-22 00:00: 00 Yes [id number] 100mg Take 1 tablet by mouth every 12 (twelve) hours. [facility] aspirin 81 mg EC tablet 2021-0 4-22 00:00: 00 Yes [id number] 81mg Take 1 tablet by mouth daily. [facility] labetaloL 100 mg tablet 2021-0 22 00:00: 00 Yes [id number] 100mg Take 1 tablet by mouth every 12 (twelve) hours. [facility] aspirin 81 mg EC tablet 2021-0 22 00:00: 00 Yes [id number] 81mg Take 1 tablet by mouth daily. [facility] labetaloL 100 mg tablet 2021-0 22 00:00: 00 Yes [id number] 100mg Take 1 tablet by mouth every 12 (twelve) hours. [facility] aspirin 81 mg EC tablet 2021-0 22 00:00: 00 Yes [id number] 81mg Take 1 tablet by mouth daily. [facility] labetaloL 100 mg tablet 2021-0 01-08 00:00: 00 Yes [id number] 100mg Take 1 tablet by mouth every 12 (twelve) hours. [facility] aspirin 81 mg EC tablet 2021-0 01-08 00:00: 00 Yes [id number] 81mg Take 1 tablet by mouth daily. [facility] labetaloL 100 mg tablet 2021-0 01-08 00:00: 00 Yes [id number] 100mg Take 1 tablet by mouth every 12 (twelve) hours. [facility] aspirin 81 mg EC tablet 2021-0 01-08 00:00: 00 Yes [id number] 81mg Take 1 tablet by mouth daily. [facility] labetaloL 100 mg tablet 2021-0 01-08 00:00: 00 Yes [id number] 100mg Take 1 tablet by mouth every 12 (twelve) hours. [facility] aspirin 81 mg EC tablet 2021-0 22 00:00: 00 Yes [id number] 81mg Take 1 tablet by mouth daily. [facility] aspirin 81 mg EC tablet 2021-0 01-08 00:00: 00 04-13 00:00 :00 No [id number] 81mg Take 1 tablet by mouth daily. [facility] aspirin 81 mg EC tablet 2021-0 01-08 00:00: 00 04-13 00:00 :00 No [id number] 81mg Take 1 tablet by mouth daily. [facility] aspirin 81 mg EC tablet 01-08 00:00: 00 04-13 00:00 :00 No [id number] 81mg Take 1 tablet by mouth daily. [facility] cyclobenzap rine 10 mg tablet 0 -17 00:00: 00 Yes [id number] 10mg Take 1 tablet by mouth 3 (three) times daily. [facility] cyclobenzap rine 10 mg tablet 2021-0 17 00:00: 00 Yes [id number] 10mg Take 1 tablet by mouth 3 (three) times daily. [facility] cyclobenzap rine 10 mg tablet 0 17 00:00: 00 Yes [id number] 10mg Take 1 tablet by mouth 3 (three) times daily. [facility] cyclobenzap rine 10 mg tablet 2021-0 17 00:00: 00 Yes [id number] 10mg Take 1 tablet by mouth 3 (three) times daily. [facility] cyclobenzap rine 10 mg tablet 2021-0 -17 00:00: 00 Yes [id number] 10mg Take 1 tablet by mouth 3 (three) times daily. [facility] cyclobenzap rine 10 mg tablet 2021-0 -17 00:00: 00 Yes [id number] 10mg Take 1 tablet by mouth 3 (three) times daily. [facility] cyclobenzap rine 10 mg tablet 2021-0 -17 00:00: 00 Yes [id number] 10mg Take 1 tablet by mouth 3 (three) times daily. [facility] cyclobenzap rine 10 mg tablet 2021-0 -17 00:00: 00 Yes [id number] 10mg Take 1 tablet by mouth 3 (three) times daily. [facility] cyclobenzap rine 10 mg tablet 2021-0 -17 00:00: 00 Yes [id number] 10mg Take 1 tablet by mouth 3 (three) times daily. [facility] cyclobenzap rine 10 mg tablet 2021-0 -17 00:00: 00 Yes [id number] 10mg Take 1 tablet by mouth 3 (three) times daily. [facility] cyclobenzap rine 10 mg tablet 2-0 4-17 00:00: 00 Yes [id number] 10mg Take 1 tablet by mouth 3 (three) times daily. [facility] cyclobenzap rine 10 mg tablet 2021-0 4-17 00:00: 00 Yes [id number] 10mg Take 1 tablet by mouth 3 (three) times daily. [facility] cyclobenzap rine 10 mg tablet 2021-0 4-17 00:00: 00 Yes [id number] 10mg Take 1 tablet by mouth 3 (three) times daily. [facility] cyclobenzap rine 10 mg tablet 2021-0 4-17 00:00: 00 Yes [id number] 10mg Take 1 tablet by mouth 3 (three) times daily. [facility] cyclobenzap rine 10 mg tablet 2021-0 4-17 00:00: 00 Yes [id number] 10mg Take 1 tablet by mouth 3 (three) times daily. [facility] cyclobenzap rine 10 mg tablet 2021-0 4-17 00:00: 00 Yes [id number] 10mg Take 1 tablet by mouth 3 (three) times daily. [facility] cyclobenzap rine 10 mg tablet 2021-0 4-17 00:00: 00 Yes [id number] 10mg Take 1 tablet by mouth 3 (three) times daily. [facility] cyclobenzap rine 10 mg tablet 2021-0 4-17 00:00: 00 Yes [id number] 10mg Take 1 tablet by mouth 3 (three) times daily. [facility] cyclobenzap rine 10 mg tablet 2021-0 4-17 00:00: 00 04-13 00:00 :00 No [id number] 10mg Take 1 tablet by mouth 3 (three) times daily. [facility] cyclobenzap rine 10 mg tablet 2-0 4-17 00:00: 00 04-13 00:00 :00 No [id number] 10mg Take 1 tablet by mouth 3 (three) times daily. [facility] cyclobenzap rine 10 mg tablet 4-17 00:00: 00 - 00:00 :00 No [id number] 10mg Take 1 tablet by mouth 3 (three) times daily. [facility] ondansetron 4 mg disintegrat ing tablet 10-01 00:00: 00 Yes [id number] 4mg Take 1 tablet by mouth every 8 (eight) hours as needed for Nausea and Vomiting (N/V). [facility] vit 33-iron-fol ic-dha (SELECT-OB + DHA) 29 mg iron-1 mg -250 mg combo pack 10-01 00:00: 00 Yes [id number] 1{packe t} Take 1 Packet by mouth daily. [facility] ondansetron 4 mg disintegrat ing tablet 10-01 00:00: 00 Yes [id number] 4mg Take 1 tablet by mouth every 8 (eight) hours as needed for Nausea and Vomiting (N/V). [facility] vit 33-iron-fol ic-dha (SELECT-OB + DHA) 29 mg iron-1 mg -250 mg combo pack 10-01 00:00: 00 Yes [id number] 1{packe t} Take 1 Packet by mouth daily. [facility] ondansetron 4 mg disintegrat ing tablet 10-01 00:00: 00 Yes [id number] 4mg Take 1 tablet by mouth every 8 (eight) hours as needed for Nausea and Vomiting (N/V). [facility] vit 33-iron-fol ic-dha (SELECT-OB + DHA) 29 mg iron-1 mg -250 mg combo pack 10-01 00:00: 00 Yes [id number] 1{packe t} Take 1 Packet by mouth daily. [facility] ondansetron 4 mg disintegrat ing tablet 10-01 00:00: 00 Yes [id number] 4mg Take 1 tablet by mouth every 8 (eight) hours as needed for Nausea and Vomiting (N/V). [facility] vit 33-iron-fol ic-dha (SELECT-OB + DHA) 29 mg iron-1 mg -250 mg combo pack 10-01 00:00: 00 Yes [id number] 1{packe t} Take 1 Packet by mouth daily. [facility] ondansetron 4 mg disintegrat ing tablet 10-01 00:00: 00 Yes [id number] 4mg Take 1 tablet by mouth every 8 (eight) hours as needed for Nausea and Vomiting (N/V). [facility] vit 33-iron-fol ic-dha (SELECT-OB + DHA) 29 mg iron-1 mg -250 mg combo pack 10-01 00:00: 00 Yes [id number] 1{packe t} Take 1 Packet by mouth daily. [facility] ondansetron 4 mg disintegrat ing tablet 10-01 00:00: 00 Yes [id number] 4mg Take 1 tablet by mouth every 8 (eight) hours as needed for Nausea and Vomiting (N/V). [facility] vit 33-iron-fol ic-dha (SELECT-OB + DHA) 29 mg iron-1 mg -250 mg combo pack 10-01 00:00: 00 Yes [id number] 1{packe t} Take 1 Packet by mouth daily. [facility] ondansetron 4 mg disintegrat ing tablet 10-01 00:00: 00 Yes [id number] 4mg Take 1 tablet by mouth every 8 (eight) hours as needed for Nausea and Vomiting (N/V). [facility] vit 33-iron-fol ic-dha (SELECT-OB + DHA) 29 mg iron-1 mg -250 mg combo pack 10-01 00:00: 00 Yes [id number] 1{packe t} Take 1 Packet by mouth daily. [facility] ondansetron 4 mg disintegrat ing tablet 10-01 00:00: 00 Yes [id number] 4mg Take 1 tablet by mouth every 8 (eight) hours as needed for Nausea and Vomiting (N/V). [facility] vit 33-iron-fol ic-dha (SELECT-OB + DHA) 29 mg iron-1 mg -250 mg combo pack 10-01 00:00: 00 Yes [id number] 1{packe t} Take 1 Packet by mouth daily. [facility] ondansetron 4 mg disintegrat ing tablet 10-01 00:00: 00 Yes [id number] 4mg Take 1 tablet by mouth every 8 (eight) hours as needed for Nausea and Vomiting (N/V). [facility] vit 33-iron-fol ic-dha (SELECT-OB + DHA) 29 mg iron-1 mg -250 mg combo pack 10-01 00:00: 00 Yes [id number] 1{packe t} Take 1 Packet by mouth daily. [facility] ondansetron 4 mg disintegrat ing tablet 10-01 00:00: 00 Yes [id number] 4mg Take 1 tablet by mouth every 8 (eight) hours as needed for Nausea and Vomiting (N/V). [facility] vit 33-iron-fol ic-dha (SELECT-OB + DHA) 29 mg iron-1 mg -250 mg combo pack 10-01 00:00: 00 Yes [id number] 1{packe t} Take 1 Packet by mouth daily. [facility] ondansetron 4 mg disintegrat ing tablet 10-01 00:00: 00 Yes [id number] 4mg Take 1 tablet by mouth every 8 (eight) hours as needed for Nausea and Vomiting (N/V). [facility] vit 33-iron-fol ic-dha (SELECT-OB + DHA) 29 mg iron-1 mg -250 mg combo pack 10-01 00:00: 00 Yes [id number] 1{packe t} Take 1 Packet by mouth daily. [facility] ondansetron 4 mg disintegrat ing tablet 10-01 00:00: 00 Yes [id number] 4mg Take 1 tablet by mouth every 8 (eight) hours as needed for Nausea and Vomiting (N/V). [facility] vit 33-iron-fol ic-dha (SELECT-OB + DHA) 29 mg iron-1 mg -250 mg combo pack 10-01 00:00: 00 Yes [id number] 1{packe t} Take 1 Packet by mouth daily. [facility] ondansetron 4 mg disintegrat ing tablet 10-01 00:00: 00 Yes [id number] 4mg Take 1 tablet by mouth every 8 (eight) hours as needed for Nausea and Vomiting (N/V). [facility] vit 33-iron-fol ic-dha (SELECT-OB + DHA) 29 mg iron-1 mg -250 mg combo pack 10-01 00:00: 00 Yes [id number] 1{packe t} Take 1 Packet by mouth daily. [facility] ondansetron 4 mg disintegrat ing tablet 10-01 00:00: 00 Yes [id number] 4mg Take 1 tablet by mouth every 8 (eight) hours as needed for Nausea and Vomiting (N/V). [facility] vit 33-iron-fol ic-dha (SELECT-OB + DHA) 29 mg iron-1 mg -250 mg combo pack 10-01 00:00: 00 Yes [id number] 1{packe t} Take 1 Packet by mouth daily. [facility] ondansetron 4 mg disintegrat ing tablet 10-01 00:00: 00 Yes [id number] 4mg Take 1 tablet by mouth every 8 (eight) hours as needed for Nausea and Vomiting (N/V). [facility] vit 33-iron-fol ic-dha (SELECT-OB + DHA) 29 mg iron-1 mg -250 mg combo pack 10-01 00:00: 00 Yes [id number] 1{packe t} Take 1 Packet by mouth daily. [facility] ondansetron 4 mg disintegrat ing tablet 10-01 00:00: 00 Yes [id number] 4mg Take 1 tablet by mouth every 8 (eight) hours as needed for Nausea and Vomiting (N/V). [facility] vit 33-iron-fol ic-dha (SELECT-OB + DHA) 29 mg iron-1 mg -250 mg combo pack 10-01 00:00: 00 Yes [id number] 1{packe t} Take 1 Packet by mouth daily. [facility] ondansetron 4 mg disintegrat ing tablet 10-01 00:00: 00 Yes [id number] 4mg Take 1 tablet by mouth every 8 (eight) hours as needed for Nausea and Vomiting (N/V). [facility] vit 33-iron-fol ic-dha (SELECT-OB + DHA) 29 mg iron-1 mg -250 mg combo pack 10-01 00:00: 00 Yes [id number] 1{packe t} Take 1 Packet by mouth daily. [facility] ondansetron 4 mg disintegrat ing tablet 10-01 00:00: 00 Yes [id number] 4mg Take 1 tablet by mouth every 8 (eight) hours as needed for Nausea and Vomiting (N/V). [facility] vit 33-iron-fol ic-dha (SELECT-OB + DHA) 29 mg iron-1 mg -250 mg combo pack 10-01 00:00: 00 Yes [id number] 1{packe t} Take 1 Packet by mouth daily. [facility] ondansetron 4 mg disintegrat ing tablet 10-01 00:00: 00 04-13 00:00 :00 No [id number] 4mg Take 1 tablet by mouth every 8 (eight) hours as needed for Nausea and Vomiting (N/V). [facility] vit 33-iron-fol ic-dha (SELECT-OB + DHA) 29 mg iron-1 mg -250 mg combo pack 10-01 00:00: 00 04-13 00:00 :00 No [id number] 1{packe t} Take 1 Packet by mouth daily. [facility] ondansetron 4 mg disintegrat ing tablet 10-01 00:00: 00 04-13 00:00 :00 No [id number] 4mg Take 1 tablet by mouth every 8 (eight) hours as needed for Nausea and Vomiting (N/V). [facility] vit 33-iron-fol ic-dha (SELECT-OB + DHA) 29 mg iron-1 mg -250 mg combo pack 10-01 00:00: 00 04-13 00:00 :00 No [id number] 1{packe t} Take 1 Packet by mouth daily. [facility] ondansetron 4 mg disintegrat ing tablet 10-01 00:00: 00 04-13 00:00 :00 No [id number] 4mg Take 1 tablet by mouth every 8 (eight) hours as needed for Nausea and Vomiting (N/V). [facility] vit 33-iron-fol ic-dha (SELECT-OB + DHA) 29 mg iron-1 mg -250 mg combo pack 10-01 00:00: 00 04-13 00:00 :00 No [id number] 1{packe t} Take 1 Packet by mouth daily. [facility] ondansetron 4 mg disintegrat ing tablet 10-01 00:00: 00 04-13 00:00 :00 No [id number] 4mg Take 1 tablet by mouth every 8 (eight) hours as needed for Nausea and Vomiting (N/V). [facility] vit 33-iron-fol ic-dha (SELECT-OB + DHA) 29 mg iron-1 mg -250 mg combo pack 10-01 00:00: 00 04-13 00:00 :00 No [id number] 1{packe t} Take 1 Packet by mouth daily. [facility] ondansetron 4 mg disintegrat ing tablet 10-01 00:00: 00 04-13 00:00 :00 No [id number] 4mg Take 1 tablet by mouth every 8 (eight) hours as needed for Nausea and Vomiting (N/V). [facility] vit 33-iron-fol ic-dha (SELECT-OB + DHA) 29 mg iron-1 mg -250 mg combo pack 10-01 00:00: 00 04-13 00:00 :00 No [id number] 1{packe t} Take 1 Packet by mouth daily. [facility] hydrALAZINE 10 mg tablet 2020-09 00:00: 00 Yes [id number] 10mg Take 1 tablet by mouth once daily as needed (BP above 140s). [facility] hydrALAZINE 10 mg tablet 2020-09 00:00: 00 Yes [id number] 10mg Take 1 tablet by mouth once daily as needed (BP above 140s). [facility] hydrALAZINE 10 mg tablet 2020-09 00:00: 00 Yes [id number] 10mg Take 1 tablet by mouth once daily as needed (BP above 140s). [facility] hydrALAZINE 10 mg tablet 2020-09 00:00: 00 Yes [id number] 10mg Take 1 tablet by mouth once daily as needed (BP above 140s). [facility] hydrALAZINE 10 mg tablet 2020-09 00:00: 00 Yes [id number] 10mg Take 1 tablet by mouth once daily as needed (BP above 140s). [facility] hydrALAZINE 10 mg tablet 2020-09 00:00: 00 Yes [id number] 10mg Take 1 tablet by mouth once daily as needed (BP above 140s). [facility] hydrALAZINE 10 mg tablet 2020-09 00:00: 00 Yes [id number] 10mg Take 1 tablet by mouth once daily as needed (BP above 140s). [facility] hydrALAZINE 10 mg tablet 2020-09 00:00: 00 Yes [id number] 10mg Take 1 tablet by mouth once daily as needed (BP above 140s). [facility] hydrALAZINE 10 mg tablet 2020-09 00:00: 00 Yes [id number] 10mg Take 1 tablet by mouth once daily as needed (BP above 140s). [facility] hydrALAZINE 10 mg tablet 2020-09 00:00: 00 Yes [id number] 10mg Take 1 tablet by mouth once daily as needed (BP above 140s). [facility] hydrALAZINE 10 mg tablet 2020-09 00:00: 00 Yes [id number] 10mg Take 1 tablet by mouth once daily as needed (BP above 140s). [facility] hydrALAZINE 10 mg tablet 2020-09 00:00: 00 Yes [id number] 10mg Take 1 tablet by mouth once daily as needed (BP above 140s). [facility] hydrALAZINE 10 mg tablet 2020-09 00:00: 00 Yes [id number] 10mg Take 1 tablet by mouth once daily as needed (BP above 140s). [facility] hydrALAZINE 10 mg tablet 2020-09 00:00: 00 Yes [id number] 10mg Take 1 tablet by mouth once daily as needed (BP above 140s). [facility] hydrALAZINE 10 mg tablet 2020-09 00:00: 00 Yes [id number] 10mg Take 1 tablet by mouth once daily as needed (BP above 140s). [facility] hydrALAZINE 10 mg tablet 2020-09 00:00: 00 Yes [id number] 10mg Take 1 tablet by mouth once daily as needed (BP above 140s). [facility] hydrALAZINE 10 mg tablet 2020-09 00:00: 00 Yes [id number] 10mg Take 1 tablet by mouth once daily as needed (BP above 140s). [facility] hydrALAZINE 10 mg tablet 2020-09 00:00: 00 Yes [id number] 10mg Take 1 tablet by mouth once daily as needed (BP above 140s). [facility] hydrALAZINE 10 mg tablet 2020-09 00:00: 00 04-13 00:00 :00 No [id number] 10mg Take 1 tablet by mouth once daily as needed (BP above 140s). [facility] hydrALAZINE 10 mg tablet 2020-09 00:00: 00 04-13 00:00 :00 No [id number] 10mg Take 1 tablet by mouth once daily as needed (BP above 140s). [facility] hydrALAZINE 10 mg tablet 2020-09 00:00: 00 04-13 00:00 :00 No [id number] 10mg Take 1 tablet by mouth once daily as needed (BP above 140s). [facility] hydrALAZINE 10 mg tablet 2020-09 00:00: 00 04-13 00:00 :00 No [id number] 10mg Take 1 tablet by mouth once daily as needed (BP above 140s). [facility] hydrALAZINE 10 mg tablet 2020-09 00:00: 00 04-13 00:00 :00 No [id number] 10mg Take 1 tablet by mouth once daily as needed (BP above 140s). [facility] albuterol 90 mcg/actuati on inhaler 11-30 00:00: 00 11-27 00:00 :00 No [id number] 2{puff} Inhale 2 Puffs every 4 (four) hours as needed for Wheezing or Shortness of Breath. [facility] benzonatate 100 mg capsule 11-30 00:00: 00 11-27 00:00 :00 No [id number] 100mg Take 1 capsule by mouth 3 (three) times daily as needed for Cough. [facility] acetaminoph en-codeine (TYLENOL #3) 300-30 mg tablet 10-19 00:00: 00 11-27 00:00 :00 No 1{tbl} Take 1 Tab by mouth every 4 (four) hours as needed for Pain unrelieved by non-narcot ic analgesics for up to 10 doses. [facility] Immunizations Ordered Immunization Name Filled Immunization Name Date Status Comments Source TDAP 2022-02-22 00:00:00 Completed [facility] TDAP 2022-02-22 00:00:00 Completed [facility] TDAP 2022-02-22 00:00:00 Completed [facility] TDAP 2022-02-22 00:00:00 Completed [facility] TDAP 2022-02-22 00:00:00 Completed [facility] TDAP 2022-02-22 00:00:00 Completed [facility] TDAP 2022-02-22 00:00:00 Completed [facility] TDAP 2022-02-22 00:00:00 Completed [facility] TDAP 2022-02-22 00:00:00 Completed [facility] TDAP 2022-02-22 00:00:00 Completed [facility] TDAP 2022-02-22 00:00:00 Completed [facility] TDAP 2022-02-22 00:00:00 Completed [facility] TDAP 2022-02-22 00:00:00 Completed [facility] TDAP 2022-02-22 00:00:00 Completed [facility] TDAP 2022-02-22 00:00:00 Completed [facility] TDAP 2022-02-22 00:00:00 Completed [facility] TDAP 2022-02-22 00:00:00 Completed [facility] TDAP 2022-02-22 00:00:00 Completed [facility] TDAP 2022-02-22 00:00:00 Completed [facility] TDAP 2022-02-22 00:00:00 Completed [facility] HPV 2013-06-14 00:00:00 Completed [facility] Meningococcal Polysaccharide (groups A, C, Y and W-135) conjugate vaccine (MCV4P) 2013-06-14 00:00:00 Completed [facility] TDAP 2013-06-14 00:00:00 Completed [facility] Varicella (varivax)(chicken pox) 2013-06-14 00:00:00 Completed [facility] HEPATITIS A 2013-06-14 00:00:00 Completed [facility] HPV 2013-06-14 00:00:00 Completed [facility] Meningococcal Polysaccharide (groups A, C, Y and W-135) conjugate vaccine (MCV4P) 2013-06-14 00:00:00 Completed [facility] TDAP 2013-06-14 00:00:00 Completed [facility] Varicella (varivax)(chicken pox) 2013-06-14 00:00:00 Completed [facility] HEPATITIS A 2013-06-14 00:00:00 Completed [facility] HPV 2013-06-14 00:00:00 Completed [facility] Meningococcal Polysaccharide (groups A, C, Y and W-135) conjugate vaccine (MCV4P) 2013-06-14 00:00:00 Completed [facility] TDAP 2013-06-14 00:00:00 Completed [facility] Varicella (varivax)(chicken pox) 2013-06-14 00:00:00 Completed [facility] HEPATITIS A 2013-06-14 00:00:00 Completed [facility] HPV 2013-06-14 00:00:00 Completed [facility] Meningococcal Polysaccharide (groups A, C, Y and W-135) conjugate vaccine (MCV4P) 2013-06-14 00:00:00 Completed [facility] TDAP 2013-06-14 00:00:00 Completed [facility] Varicella (varivax)(chicken pox) 2013-06-14 00:00:00 Completed [facility] HEPATITIS A 2013-06-14 00:00:00 Completed [facility] HPV 2013-06-14 00:00:00 Completed [facility] Meningococcal Polysaccharide (groups A, C, Y and W-135) conjugate vaccine (MCV4P) 2013-06-14 00:00:00 Completed [facility] TDAP 2013-06-14 00:00:00 Completed [facility] Varicella (varivax)(chicken pox) 2013-06-14 00:00:00 Completed [facility] HEPATITIS A 2013-06-14 00:00:00 Completed [facility] HPV 2013-06-14 00:00:00 Completed [facility] Meningococcal Polysaccharide (groups A, C, Y and W-135) conjugate vaccine (MCV4P) 2013-06-14 00:00:00 Completed [facility] TDAP 2013-06-14 00:00:00 Completed [facility] Varicella (varivax)(chicken pox) 2013-06-14 00:00:00 Completed [facility] HEPATITIS A 2013-06-14 00:00:00 Completed [facility] HPV 2013-06-14 00:00:00 Completed [facility] Meningococcal Polysaccharide (groups A, C, Y and W-135) conjugate vaccine (MCV4P) 2013-06-14 00:00:00 Completed [facility] TDAP 2013-06-14 00:00:00 Completed [facility] Varicella (varivax)(chicken pox) 2013-06-14 00:00:00 Completed [facility] HEPATITIS A 2013-06-14 00:00:00 Completed [facility] HPV 2013-06-14 00:00:00 Completed [facility] Meningococcal Polysaccharide (groups A, C, Y and W-135) conjugate vaccine (MCV4P) 2013-06-14 00:00:00 Completed [facility] TDAP 2013-06-14 00:00:00 Completed [facility] Varicella (varivax)(chicken pox) 2013-06-14 00:00:00 Completed [facility] HEPATITIS A 2013-06-14 00:00:00 Completed [facility] HPV 2013-06-14 00:00:00 Completed [facility] Meningococcal Polysaccharide (groups A, C, Y and W-135) conjugate vaccine (MCV4P) 2013-06-14 00:00:00 Completed [facility] TDAP 2013-06-14 00:00:00 Completed [facility] Varicella (varivax)(chicken pox) 2013-06-14 00:00:00 Completed [facility] HEPATITIS A 2013-06-14 00:00:00 Completed [facility] HPV 2013-06-14 00:00:00 Completed [facility] Meningococcal Polysaccharide (groups A, C, Y and W-135) conjugate vaccine (MCV4P) 2013-06-14 00:00:00 Completed [facility] TDAP 2013-06-14 00:00:00 Completed [facility] Varicella (varivax)(chicken pox) 2013-06-14 00:00:00 Completed [facility] HEPATITIS A 2013-06-14 00:00:00 Completed [facility] HPV 2013-06-14 00:00:00 Completed [facility] Meningococcal Polysaccharide (groups A, C, Y and W-135) conjugate vaccine (MCV4P) 2013-06-14 00:00:00 Completed [facility] TDAP 2013-06-14 00:00:00 Completed [facility] Varicella (varivax)(chicken pox) 2013-06-14 00:00:00 Completed [facility] HEPATITIS A 2013-06-14 00:00:00 Completed [facility] HPV 2013-06-14 00:00:00 Completed [facility] Meningococcal Polysaccharide (groups A, C, Y and W-135) conjugate vaccine (MCV4P) 2013-06-14 00:00:00 Completed [facility] TDAP 2013-06-14 00:00:00 Completed [facility] Varicella (varivax)(chicken pox) 2013-06-14 00:00:00 Completed [facility] HEPATITIS A 2013-06-14 00:00:00 Completed [facility] HPV 2013-06-14 00:00:00 Completed [facility] Meningococcal Polysaccharide (groups A, C, Y and W-135) conjugate vaccine (MCV4P) 2013-06-14 00:00:00 Completed [facility] TDAP 2013-06-14 00:00:00 Completed [facility] Varicella (varivax)(chicken pox) 2013-06-14 00:00:00 Completed [facility] HEPATITIS A 2013-06-14 00:00:00 Completed [facility] HPV 2013-06-14 00:00:00 Completed [facility] Meningococcal Polysaccharide (groups A, C, Y and W-135) conjugate vaccine (MCV4P) 2013-06-14 00:00:00 Completed [facility] TDAP 2013-06-14 00:00:00 Completed [facility] Varicella (varivax)(chicken pox) 2013-06-14 00:00:00 Completed [facility] HEPATITIS A 2013-06-14 00:00:00 Completed [facility] HPV 2013-06-14 00:00:00 Completed [facility] Meningococcal Polysaccharide (groups A, C, Y and W-135) conjugate vaccine (MCV4P) 2013-06-14 00:00:00 Completed [facility] TDAP 2013-06-14 00:00:00 Completed [facility] Varicella (varivax)(chicken pox) 2013-06-14 00:00:00 Completed [facility] HEPATITIS A 2013-06-14 00:00:00 Completed [facility] HPV 2013-06-14 00:00:00 Completed [facility] Meningococcal Polysaccharide (groups A, C, Y and W-135) conjugate vaccine (MCV4P) 2013-06-14 00:00:00 Completed [facility] TDAP 2013-06-14 00:00:00 Completed [facility] Varicella (varivax)(chicken pox) 2013-06-14 00:00:00 Completed [facility] HEPATITIS A 2013-06-14 00:00:00 Completed [facility] HPV 2013-06-14 00:00:00 Completed [facility] Meningococcal Polysaccharide (groups A, C, Y and W-135) conjugate vaccine (MCV4P) 2013-06-14 00:00:00 Completed [facility] TDAP 2013-06-14 00:00:00 Completed [facility] Varicella (varivax)(chicken pox) 2013-06-14 00:00:00 Completed [facility] HEPATITIS A 2013-06-14 00:00:00 Completed [facility] HPV 2013-06-14 00:00:00 Completed [facility] Meningococcal Polysaccharide (groups A, C, Y and W-135) conjugate vaccine (MCV4P) 2013-06-14 00:00:00 Completed [facility] TDAP 2013-06-14 00:00:00 Completed [facility] Varicella (varivax)(chicken pox) 2013-06-14 00:00:00 Completed [facility] HEPATITIS A 2013-06-14 00:00:00 Completed [facility] HPV 2013-06-14 00:00:00 Completed [facility] Meningococcal Polysaccharide (groups A, C, Y and W-135) conjugate vaccine (MCV4P) 2013-06-14 00:00:00 Completed [facility] TDAP 2013-06-14 00:00:00 Completed [facility] Varicella (varivax)(chicken pox) 2013-06-14 00:00:00 Completed [facility] HEPATITIS A 2013-06-14 00:00:00 Completed [facility] HPV 2013-06-14 00:00:00 Completed [facility] Meningococcal Polysaccharide (groups A, C, Y and W-135) conjugate vaccine (MCV4P) 2013-06-14 00:00:00 Completed [facility] TDAP 2013-06-14 00:00:00 Completed [facility] Varicella (varivax)(chicken pox) 2013-06-14 00:00:00 Completed [facility] HEPATITIS A 2013-06-14 00:00:00 Completed [facility] HPV 2013-06-14 00:00:00 Completed [facility] Meningococcal Polysaccharide (groups A, C, Y and W-135) conjugate vaccine (MCV4P) 2013-06-14 00:00:00 Completed [facility] TDAP 2013-06-14 00:00:00 Completed [facility] Varicella (varivax)(chicken pox) 2013-06-14 00:00:00 Completed [facility] HEPATITIS A 2013-06-14 00:00:00 Completed [facility] HPV 2013-06-14 00:00:00 Completed [facility] Meningococcal Polysaccharide (groups A, C, Y and W-135) conjugate vaccine (MCV4P) 2013-06-14 00:00:00 Completed [facility] TDAP 2013-06-14 00:00:00 Completed [facility] Varicella (varivax)(chicken pox) 2013-06-14 00:00:00 Completed [facility] HEPATITIS A 2013-06-14 00:00:00 Completed [facility] HPV 2013-06-14 00:00:00 Completed [facility] Meningococcal Polysaccharide (groups A, C, Y and W-135) conjugate vaccine (MCV4P) 2013-06-14 00:00:00 Completed [facility] TDAP 2013-06-14 00:00:00 Completed [facility] Varicella (varivax)(chicken pox) 2013-06-14 00:00:00 Completed [facility] HEPATITIS A 2013-06-14 00:00:00 Completed [facility] HIB 4 Dose Schedule 2007-01-02 00:00:00 Completed [facility] HIB 4 Dose Schedule 2007-01-02 00:00:00 Completed [facility] HIB 4 Dose Schedule 2007-01-02 00:00:00 Completed [facility] HIB 4 Dose Schedule 2007-01-02 00:00:00 Completed [facility] HIB 4 Dose Schedule 2007-01-02 00:00:00 Completed [facility] HIB 4 Dose Schedule 2007-01-02 00:00:00 Completed [facility] HIB 4 Dose Schedule 2007-01-02 00:00:00 Completed [facility] HIB 4 Dose Schedule 2007-01-02 00:00:00 Completed [facility] HIB 4 Dose Schedule 2007-01-02 00:00:00 Completed [facility] HIB 4 Dose Schedule 2007-01-02 00:00:00 Completed [facility] HIB 4 Dose Schedule 2007-01-02 00:00:00 Completed [facility] HIB 4 Dose Schedule 2007-01-02 00:00:00 Completed [facility] HIB 4 Dose Schedule 2007-01-02 00:00:00 Completed [facility] HIB 4 Dose Schedule 2007-01-02 00:00:00 Completed [facility] HIB 4 Dose Schedule 2007-01-02 00:00:00 Completed [facility] HIB 4 Dose Schedule 2007-01-02 00:00:00 Completed [facility] HIB 4 Dose Schedule 2007-01-02 00:00:00 Completed [facility] HIB 4 Dose Schedule 2007-01-02 00:00:00 Completed [facility] HIB 4 Dose Schedule 2007-01-02 00:00:00 Completed [facility] HIB 4 Dose Schedule 2007-01-02 00:00:00 Completed [facility] HIB 4 Dose Schedule 2007-01-02 00:00:00 Completed [facility] HIB 4 Dose Schedule 2007-01-02 00:00:00 Completed [facility] HIB 4 Dose Schedule 2007-01-02 00:00:00 Completed [facility] HEPATITIS A 2006-01-25 00:00:00 Completed [facility] HEPATITIS A 2006-01-25 00:00:00 Completed [facility] HEPATITIS A 2006-01-25 00:00:00 Completed [facility] HEPATITIS A 2006-01-25 00:00:00 Completed [facility] HEPATITIS A 2006-01-25 00:00:00 Completed [facility] HEPATITIS A 2006-01-25 00:00:00 Completed [facility] HEPATITIS A 2006-01-25 00:00:00 Completed [facility] HEPATITIS A 2006-01-25 00:00:00 Completed [facility] HEPATITIS A 2006-01-25 00:00:00 Completed [facility] HEPATITIS A 2006-01-25 00:00:00 Completed [facility] HEPATITIS A 2006-01-25 00:00:00 Completed [facility] HEPATITIS A 2006-01-25 00:00:00 Completed [facility] HEPATITIS A 2006-01-25 00:00:00 Completed [facility] HEPATITIS A 2006-01-25 00:00:00 Completed [facility] HEPATITIS A 2006-01-25 00:00:00 Completed [facility] HEPATITIS A 2006-01-25 00:00:00 Completed [facility] HEPATITIS A 2006-01-25 00:00:00 Completed [facility] HEPATITIS A 2006-01-25 00:00:00 Completed [facility] HEPATITIS A 2006-01-25 00:00:00 Completed [facility] HEPATITIS A 2006-01-25 00:00:00 Completed [facility] HEPATITIS A 2006-01-25 00:00:00 Completed [facility] HEPATITIS A 2006-01-25 00:00:00 Completed [facility] HEPATITIS A 2006-01-25 00:00:00 Completed [facility] MMR 2005-11-18 00:00:00 Completed [facility] Polio (IPV/OPV) 2005-11-18 00:00:00 Completed [facility] Pneumococcal 7 Conjugate, PCV7 (Prevnar7) 2005-11-18 00:00:00 Completed [facility] DTAP 2005-11-18 00:00:00 Completed [facility] Hep B, Adol or Pedi Dosage 2005-11-18 00:00:00 Completed [facility] MMR 2005-11-18 00:00:00 Completed [facility] Polio (IPV/OPV) 2005-11-18 00:00:00 Completed [facility] Pneumococcal 7 Conjugate, PCV7 (Prevnar7) 2005-11-18 00:00:00 Completed [facility] DTAP 2005-11-18 00:00:00 Completed [facility] Hep B, Adol or Pedi Dosage 2005-11-18 00:00:00 Completed [facility] MMR 2005-11-18 00:00:00 Completed [facility] Polio (IPV/OPV) 2005-11-18 00:00:00 Completed [facility] Pneumococcal 7 Conjugate, PCV7 (Prevnar7) 2005-11-18 00:00:00 Completed [facility] DTAP 2005-11-18 00:00:00 Completed [facility] Hep B, Adol or Pedi Dosage 2005-11-18 00:00:00 Completed [facility] MMR 2005-11-18 00:00:00 Completed [facility] Polio (IPV/OPV) 2005-11-18 00:00:00 Completed [facility] Pneumococcal 7 Conjugate, PCV7 (Prevnar7) 2005-11-18 00:00:00 Completed [facility] DTAP 2005-11-18 00:00:00 Completed [facility] Hep B, Adol or Pedi Dosage 2005-11-18 00:00:00 Completed [facility] MMR 2005-11-18 00:00:00 Completed [facility] Polio (IPV/OPV) 2005-11-18 00:00:00 Completed [facility] Pneumococcal 7 Conjugate, PCV7 (Prevnar7) 2005-11-18 00:00:00 Completed [facility] DTAP 2005-11-18 00:00:00 Completed [facility] Hep B, Adol or Pedi Dosage 2005-11-18 00:00:00 Completed [facility] MMR 2005-11-18 00:00:00 Completed [facility] Polio (IPV/OPV) 2005-11-18 00:00:00 Completed [facility] Pneumococcal 7 Conjugate, PCV7 (Prevnar7) 2005-11-18 00:00:00 Completed [facility] DTAP 2005-11-18 00:00:00 Completed [facility] Hep B, Adol or Pedi Dosage 2005-11-18 00:00:00 Completed [facility] MMR 2005-11-18 00:00:00 Completed [facility] Polio (IPV/OPV) 2005-11-18 00:00:00 Completed [facility] Pneumococcal 7 Conjugate, PCV7 (Prevnar7) 2005-11-18 00:00:00 Completed [facility] DTAP 2005-11-18 00:00:00 Completed [facility] Hep B, Adol or Pedi Dosage 2005-11-18 00:00:00 Completed [facility] MMR 2005-11-18 00:00:00 Completed [facility] Polio (IPV/OPV) 2005-11-18 00:00:00 Completed [facility] Pneumococcal 7 Conjugate, PCV7 (Prevnar7) 2005-11-18 00:00:00 Completed [facility] DTAP 2005-11-18 00:00:00 Completed [facility] Hep B, Adol or Pedi Dosage 2005-11-18 00:00:00 Completed [facility] MMR 2005-11-18 00:00:00 Completed [facility] Polio (IPV/OPV) 2005-11-18 00:00:00 Completed [facility] Pneumococcal 7 Conjugate, PCV7 (Prevnar7) 2005-11-18 00:00:00 Completed [facility] DTAP 2005-11-18 00:00:00 Completed [facility] Hep B, Adol or Pedi Dosage 2005-11-18 00:00:00 Completed [facility] MMR 2005-11-18 00:00:00 Completed [facility] Polio (IPV/OPV) 2005-11-18 00:00:00 Completed [facility] Pneumococcal 7 Conjugate, PCV7 (Prevnar7) 2005-11-18 00:00:00 Completed [facility] DTAP 2005-11-18 00:00:00 Completed [facility] Hep B, Adol or Pedi Dosage 2005-11-18 00:00:00 Completed [facility] MMR 2005-11-18 00:00:00 Completed [facility] Polio (IPV/OPV) 2005-11-18 00:00:00 Completed [facility] Pneumococcal 7 Conjugate, PCV7 (Prevnar7) 2005-11-18 00:00:00 Completed [facility] DTAP 2005-11-18 00:00:00 Completed [facility] Hep B, Adol or Pedi Dosage 2005-11-18 00:00:00 Completed [facility] MMR 2005-11-18 00:00:00 Completed [facility] Polio (IPV/OPV) 2005-11-18 00:00:00 Completed [facility] Pneumococcal 7 Conjugate, PCV7 (Prevnar7) 2005-11-18 00:00:00 Completed [facility] DTAP 2005-11-18 00:00:00 Completed [facility] Hep B, Adol or Pedi Dosage 2005-11-18 00:00:00 Completed [facility] MMR 2005-11-18 00:00:00 Completed [facility] Polio (IPV/OPV) 2005-11-18 00:00:00 Completed [facility] Pneumococcal 7 Conjugate, PCV7 (Prevnar7) 2005-11-18 00:00:00 Completed [facility] DTAP 2005-11-18 00:00:00 Completed [facility] Hep B, Adol or Pedi Dosage 2005-11-18 00:00:00 Completed [facility] MMR 2005-11-18 00:00:00 Completed [facility] Polio (IPV/OPV) 2005-11-18 00:00:00 Completed [facility] Pneumococcal 7 Conjugate, PCV7 (Prevnar7) 2005-11-18 00:00:00 Completed [facility] DTAP 2005-11-18 00:00:00 Completed [facility] Hep B, Adol or Pedi Dosage 2005-11-18 00:00:00 Completed [facility] MMR 2005-11-18 00:00:00 Completed [facility] Polio (IPV/OPV) 2005-11-18 00:00:00 Completed [facility] Pneumococcal 7 Conjugate, PCV7 (Prevnar7) 2005-11-18 00:00:00 Completed [facility] DTAP 2005-11-18 00:00:00 Completed [facility] Hep B, Adol or Pedi Dosage 2005-11-18 00:00:00 Completed [facility] MMR 2005-11-18 00:00:00 Completed [facility] Polio (IPV/OPV) 2005-11-18 00:00:00 Completed [facility] Pneumococcal 7 Conjugate, PCV7 (Prevnar7) 2005-11-18 00:00:00 Completed [facility] DTAP 2005-11-18 00:00:00 Completed [facility] Hep B, Adol or Pedi Dosage 2005-11-18 00:00:00 Completed [facility] MMR 2005-11-18 00:00:00 Completed [facility] Polio (IPV/OPV) 2005-11-18 00:00:00 Completed [facility] Pneumococcal 7 Conjugate, PCV7 (Prevnar7) 2005-11-18 00:00:00 Completed [facility] DTAP 2005-11-18 00:00:00 Completed [facility] Hep B, Adol or Pedi Dosage 2005-11-18 00:00:00 Completed [facility] MMR 2005-11-18 00:00:00 Completed [facility] Polio (IPV/OPV) 2005-11-18 00:00:00 Completed [facility] Pneumococcal 7 Conjugate, PCV7 (Prevnar7) 2005-11-18 00:00:00 Completed [facility] DTAP 2005-11-18 00:00:00 Completed [facility] Hep B, Adol or Pedi Dosage 2005-11-18 00:00:00 Completed [facility] MMR 2005-11-18 00:00:00 Completed [facility] Polio (IPV/OPV) 2005-11-18 00:00:00 Completed [facility] Pneumococcal 7 Conjugate, PCV7 (Prevnar7) 2005-11-18 00:00:00 Completed [facility] DTAP 2005-11-18 00:00:00 Completed [facility] Hep B, Adol or Pedi Dosage 2005-11-18 00:00:00 Completed [facility] MMR 2005-11-18 00:00:00 Completed [facility] Polio (IPV/OPV) 2005-11-18 00:00:00 Completed [facility] Pneumococcal 7 Conjugate, PCV7 (Prevnar7) 2005-11-18 00:00:00 Completed [facility] DTAP 2005-11-18 00:00:00 Completed [facility] Hep B, Adol or Pedi Dosage 2005-11-18 00:00:00 Completed [facility] MMR 2005-11-18 00:00:00 Completed [facility] Polio (IPV/OPV) 2005-11-18 00:00:00 Completed [facility] Pneumococcal 7 Conjugate, PCV7 (Prevnar7) 2005-11-18 00:00:00 Completed [facility] DTAP 2005-11-18 00:00:00 Completed [facility] Hep B, Adol or Pedi Dosage 2005-11-18 00:00:00 Completed [facility] MMR 2005-11-18 00:00:00 Completed [facility] Polio (IPV/OPV) 2005-11-18 00:00:00 Completed [facility] Pneumococcal 7 Conjugate, PCV7 (Prevnar7) 2005-11-18 00:00:00 Completed [facility] DTAP 2005-11-18 00:00:00 Completed [facility] Hep B, Adol or Pedi Dosage 2005-11-18 00:00:00 Completed [facility] MMR 2005-11-18 00:00:00 Completed [facility] Polio (IPV/OPV) 2005-11-18 00:00:00 Completed [facility] Pneumococcal 7 Conjugate, PCV7 (Prevnar7) 2005-11-18 00:00:00 Completed [facility] DTAP 2005-11-18 00:00:00 Completed [facility] Hep B, Adol or Pedi Dosage 2005-11-18 00:00:00 Completed [facility] DTAP 2002-02-24 00:00:00 Completed [facility] DTAP 2002-02-24 00:00:00 Completed [facility] DTAP 2002-02-24 00:00:00 Completed [facility] DTAP 2002-02-24 00:00:00 Completed [facility] DTAP 2002-02-24 00:00:00 Completed [facility] DTAP 2002-02-24 00:00:00 Completed [facility] DTAP 2002-02-24 00:00:00 Completed [facility] DTAP 2002-02-24 00:00:00 Completed [facility] DTAP 2002-02-24 00:00:00 Completed [facility] DTAP 2002-02-24 00:00:00 Completed [facility] DTAP 2002-02-24 00:00:00 Completed [facility] DTAP 2002-02-24 00:00:00 Completed [facility] DTAP 2002-02-24 00:00:00 Completed [facility] DTAP 2002-02-24 00:00:00 Completed [facility] DTAP 2002-02-24 00:00:00 Completed [facility] DTAP 2002-02-24 00:00:00 Completed [facility] DTAP 2002-02-24 00:00:00 Completed [facility] DTAP 2002-02-24 00:00:00 Completed [facility] DTAP 2002-02-24 00:00:00 Completed [facility] DTAP 2002-02-24 00:00:00 Completed [facility] DTAP 2002-02-24 00:00:00 Completed [facility] DTAP 2002-02-24 00:00:00 Completed [facility] DTAP 2002-02-24 00:00:00 Completed [facility] DTAP 2001-09-26 00:00:00 Completed [facility] DTAP 2001-09-26 00:00:00 Completed [facility] DTAP 2001-09-26 00:00:00 Completed [facility] DTAP 2001-09-26 00:00:00 Completed [facility] DTAP 2001-09-26 00:00:00 Completed [facility] DTAP 2001-09-26 00:00:00 Completed [facility] DTAP 2001-09-26 00:00:00 Completed [facility] DTAP 2001-09-26 00:00:00 Completed [facility] DTAP 2001-09-26 00:00:00 Completed [facility] DTAP 2001-09-26 00:00:00 Completed [facility] DTAP 2001-09-26 00:00:00 Completed [facility] DTAP 2001-09-26 00:00:00 Completed [facility] DTAP 2001-09-26 00:00:00 Completed [facility] DTAP 2001-09-26 00:00:00 Completed [facility] DTAP 2001-09-26 00:00:00 Completed [facility] DTAP 2001-09-26 00:00:00 Completed [facility] DTAP 2001-09-26 00:00:00 Completed [facility] DTAP 2001-09-26 00:00:00 Completed [facility] DTAP 2001-09-26 00:00:00 Completed [facility] DTAP 2001-09-26 00:00:00 Completed [facility] DTAP 2001-09-26 00:00:00 Completed [facility] DTAP 2001-09-26 00:00:00 Completed [facility] DTAP 2001-09-26 00:00:00 Completed [facility] Hep B, Adol or Pedi Dosage 2001-08-04 00:00:00 Completed [facility] Hep B, Adol or Pedi Dosage 2001-08-04 00:00:00 Completed [facility] Hep B, Adol or Pedi Dosage 2001-08-04 00:00:00 Completed [facility] Hep B, Adol or Pedi Dosage 2001-08-04 00:00:00 Completed [facility] Hep B, Adol or Pedi Dosage 2001-08-04 00:00:00 Completed [facility] Hep B, Adol or Pedi Dosage 2001-08-04 00:00:00 Completed [facility] Hep B, Adol or Pedi Dosage 2001-08-04 00:00:00 Completed [facility] Hep B, Adol or Pedi Dosage 2001-08-04 00:00:00 Completed [facility] Hep B, Adol or Pedi Dosage 2001-08-04 00:00:00 Completed [facility] Hep B, Adol or Pedi Dosage 2001-08-04 00:00:00 Completed [facility] Hep B, Adol or Pedi Dosage 2001-08-04 00:00:00 Completed [facility] Hep B, Adol or Pedi Dosage 2001-08-04 00:00:00 Completed [facility] Hep B, Adol or Pedi Dosage 2001-08-04 00:00:00 Completed [facility] Hep B, Adol or Pedi Dosage 2001-08-04 00:00:00 Completed [facility] Hep B, Adol or Pedi Dosage 2001-08-04 00:00:00 Completed [facility] Hep B, Adol or Pedi Dosage 2001-08-04 00:00:00 Completed [facility] Hep B, Adol or Pedi Dosage 2001-08-04 00:00:00 Completed [facility] Hep B, Adol or Pedi Dosage 2001-08-04 00:00:00 Completed [facility] Hep B, Adol or Pedi Dosage 2001-08-04 00:00:00 Completed [facility] Hep B, Adol or Pedi Dosage 2001-08-04 00:00:00 Completed [facility] Hep B, Adol or Pedi Dosage 2001-08-04 00:00:00 Completed [facility] Hep B, Adol or Pedi Dosage 2001-08-04 00:00:00 Completed [facility] Hep B, Adol or Pedi Dosage 2001-08-04 00:00:00 Completed [facility] MMR 2001-07-18 00:00:00 Completed [facility] Varicella (varivax)(chicken pox) 2001-07-18 00:00:00 Completed [facility] MMR 2001-07-18 00:00:00 Completed [facility] Varicella (varivax)(chicken pox) 2001-07-18 00:00:00 Completed [facility] MMR 2001-07-18 00:00:00 Completed [facility] Varicella (varivax)(chicken pox) 2001-07-18 00:00:00 Completed [facility] MMR 2001-07-18 00:00:00 Completed [facility] Varicella (varivax)(chicken pox) 2001-07-18 00:00:00 Completed [facility] MMR 2001-07-18 00:00:00 Completed [facility] Varicella (varivax)(chicken pox) 2001-07-18 00:00:00 Completed [facility] MMR 2001-07-18 00:00:00 Completed [facility] Varicella (varivax)(chicken pox) 2001-07-18 00:00:00 Completed [facility] 2001-07-18 00:00:00 Completed [facility] Varicella (varivax)(chicken pox) 2001-07-18 00:00:00 Completed [facility] 2001-07-18 00:00:00 Completed [facility] Varicella (varivax)(chicken pox) 2001-07-18 00:00:00 Completed [facility] 2001-07-18 00:00:00 Completed [facility] Varicella (varivax)(chicken pox) 2001-07-18 00:00:00 Completed [facility] 2001-07-18 00:00:00 Completed [facility] Varicella (varivax)(chicken pox) 2001-07-18 00:00:00 Completed [facility] 2001-07-18 00:00:00 Completed [facility] Varicella (varivax)(chicken pox) 2001-07-18 00:00:00 Completed [facility] 2001-07-18 00:00:00 Completed [facility] Varicella (varivax)(chicken pox) 2001-07-18 00:00:00 Completed [facility] 2001-07-18 00:00:00 Completed [facility] Varicella (varivax)(chicken pox) 2001-07-18 00:00:00 Completed [facility] 2001-07-18 00:00:00 Completed [facility] Varicella (varivax)(chicken pox) 2001-07-18 00:00:00 Completed [facility] 2001-07-18 00:00:00 Completed [facility] Varicella (varivax)(chicken pox) 2001-07-18 00:00:00 Completed [facility] 2001-07-18 00:00:00 Completed [facility] Varicella (varivax)(chicken pox) 2001-07-18 00:00:00 Completed [facility] 2001-07-18 00:00:00 Completed [facility] Varicella (varivax)(chicken pox) 2001-07-18 00:00:00 Completed [facility] 2001-07-18 00:00:00 Completed [facility] Varicella (varivax)(chicken pox) 2001-07-18 00:00:00 Completed [facility] MMR 2001-07-18 00:00:00 Completed [facility] Varicella (varivax)(chicken pox) 2001-07-18 00:00:00 Completed [facility] MMR 2001-07-18 00:00:00 Completed [facility] Varicella (varivax)(chicken pox) 2001-07-18 00:00:00 Completed [facility] MMR 2001-07-18 00:00:00 Completed [facility] Varicella (varivax)(chicken pox) 2001-07-18 00:00:00 Completed [facility] MMR 2001-07-18 00:00:00 Completed [facility] Varicella (varivax)(chicken pox) 2001-07-18 00:00:00 Completed [facility] MMR 2001-07-18 00:00:00 Completed [facility] Varicella (varivax)(chicken pox) 2001-07-18 00:00:00 Completed [facility] HIB 4 Dose Schedule 2001-06-20 00:00:00 Completed [facility] HIB 4 Dose Schedule 2001-06-20 00:00:00 Completed [facility] HIB 4 Dose Schedule 2001-06-20 00:00:00 Completed [facility] HIB 4 Dose Schedule 2001-06-20 00:00:00 Completed [facility] HIB 4 Dose Schedule 2001-06-20 00:00:00 Completed [facility] HIB 4 Dose Schedule 2001-06-20 00:00:00 Completed [facility] HIB 4 Dose Schedule 2001-06-20 00:00:00 Completed [facility] HIB 4 Dose Schedule 2001-06-20 00:00:00 Completed [facility] HIB 4 Dose Schedule 2001-06-20 00:00:00 Completed [facility] HIB 4 Dose Schedule 2001-06-20 00:00:00 Completed [facility] HIB 4 Dose Schedule 2001-06-20 00:00:00 Completed [facility] HIB 4 Dose Schedule 2001-06-20 00:00:00 Completed [facility] HIB 4 Dose Schedule 2001-06-20 00:00:00 Completed [facility] HIB 4 Dose Schedule 2001-06-20 00:00:00 Completed [facility] HIB 4 Dose Schedule 2001-06-20 00:00:00 Completed [facility] HIB 4 Dose Schedule 2001-06-20 00:00:00 Completed [facility] HIB 4 Dose Schedule 2001-06-20 00:00:00 Completed [facility] HIB 4 Dose Schedule 2001-06-20 00:00:00 Completed [facility] HIB 4 Dose Schedule 2001-06-20 00:00:00 Completed [facility] HIB 4 Dose Schedule 2001-06-20 00:00:00 Completed [facility] HIB 4 Dose Schedule 2001-06-20 00:00:00 Completed [facility] HIB 4 Dose Schedule 2001-06-20 00:00:00 Completed [facility] HIB 4 Dose Schedule 2001-06-20 00:00:00 Completed [facility] Polio (IPV/OPV) 2001-01-02 00:00:00 Completed [facility] Pneumococcal 7 Conjugate, PCV7 (Prevnar7) 2001-01-02 00:00:00 Completed [facility] DTAP 2001-01-02 00:00:00 Completed [facility] Polio (IPV/OPV) 2001-01-02 00:00:00 Completed [facility] Pneumococcal 7 Conjugate, PCV7 (Prevnar7) 2001-01-02 00:00:00 Completed [facility] DTAP 2001-01-02 00:00:00 Completed [facility] Polio (IPV/OPV) 2001-01-02 00:00:00 Completed [facility] Pneumococcal 7 Conjugate, PCV7 (Prevnar7) 2001-01-02 00:00:00 Completed [facility] DTAP 2001-01-02 00:00:00 Completed [facility] Polio (IPV/OPV) 2001-01-02 00:00:00 Completed [facility] Pneumococcal 7 Conjugate, PCV7 (Prevnar7) 2001-01-02 00:00:00 Completed [facility] DTAP 2001-01-02 00:00:00 Completed [facility] Polio (IPV/OPV) 2001-01-02 00:00:00 Completed [facility] Pneumococcal 7 Conjugate, PCV7 (Prevnar7) 2001-01-02 00:00:00 Completed [facility] DTAP 2001-01-02 00:00:00 Completed [facility] Polio (IPV/OPV) 2001-01-02 00:00:00 Completed [facility] Pneumococcal 7 Conjugate, PCV7 (Prevnar7) 2001-01-02 00:00:00 Completed [facility] DTAP 2001-01-02 00:00:00 Completed [facility] Polio (IPV/OPV) 2001-01-02 00:00:00 Completed [facility] Pneumococcal 7 Conjugate, PCV7 (Prevnar7) 2001-01-02 00:00:00 Completed [facility] DTAP 2001-01-02 00:00:00 Completed [facility] Polio (IPV/OPV) 2001-01-02 00:00:00 Completed [facility] Pneumococcal 7 Conjugate, PCV7 (Prevnar7) 2001-01-02 00:00:00 Completed [facility] DTAP 2001-01-02 00:00:00 Completed [facility] Polio (IPV/OPV) 2001-01-02 00:00:00 Completed [facility] Pneumococcal 7 Conjugate, PCV7 (Prevnar7) 2001-01-02 00:00:00 Completed [facility] DTAP 2001-01-02 00:00:00 Completed [facility] Polio (IPV/OPV) 2001-01-02 00:00:00 Completed [facility] Pneumococcal 7 Conjugate, PCV7 (Prevnar7) 2001-01-02 00:00:00 Completed [facility] DTAP 2001-01-02 00:00:00 Completed [facility] Polio (IPV/OPV) 2001-01-02 00:00:00 Completed [facility] Pneumococcal 7 Conjugate, PCV7 (Prevnar7) 2001-01-02 00:00:00 Completed [facility] DTAP 2001-01-02 00:00:00 Completed [facility] Polio (IPV/OPV) 2001-01-02 00:00:00 Completed [facility] Pneumococcal 7 Conjugate, PCV7 (Prevnar7) 2001-01-02 00:00:00 Completed [facility] DTAP 2001-01-02 00:00:00 Completed [facility] Polio (IPV/OPV) 2001-01-02 00:00:00 Completed [facility] Pneumococcal 7 Conjugate, PCV7 (Prevnar7) 2001-01-02 00:00:00 Completed [facility] DTAP 2001-01-02 00:00:00 Completed [facility] Polio (IPV/OPV) 2001-01-02 00:00:00 Completed [facility] Pneumococcal 7 Conjugate, PCV7 (Prevnar7) 2001-01-02 00:00:00 Completed [facility] DTAP 2001-01-02 00:00:00 Completed [facility] Polio (IPV/OPV) 2001-01-02 00:00:00 Completed [facility] Pneumococcal 7 Conjugate, PCV7 (Prevnar7) 2001-01-02 00:00:00 Completed [facility] DTAP 2001-01-02 00:00:00 Completed [facility] Polio (IPV/OPV) 2001-01-02 00:00:00 Completed [facility] Pneumococcal 7 Conjugate, PCV7 (Prevnar7) 2001-01-02 00:00:00 Completed [facility] DTAP 2001-01-02 00:00:00 Completed [facility] Polio (IPV/OPV) 2001-01-02 00:00:00 Completed [facility] Pneumococcal 7 Conjugate, PCV7 (Prevnar7) 2001-01-02 00:00:00 Completed [facility] DTAP 2001-01-02 00:00:00 Completed [facility] Polio (IPV/OPV) 2001-01-02 00:00:00 Completed [facility] Pneumococcal 7 Conjugate, PCV7 (Prevnar7) 2001-01-02 00:00:00 Completed [facility] DTAP 2001-01-02 00:00:00 Completed [facility] Polio (IPV/OPV) 2001-01-02 00:00:00 Completed [facility] Pneumococcal 7 Conjugate, PCV7 (Prevnar7) 2001-01-02 00:00:00 Completed [facility] DTAP 2001-01-02 00:00:00 Completed [facility] Polio (IPV/OPV) 2001-01-02 00:00:00 Completed [facility] Pneumococcal 7 Conjugate, PCV7 (Prevnar7) 2001-01-02 00:00:00 Completed [facility] DTAP 2001-01-02 00:00:00 Completed [facility] Polio (IPV/OPV) 2001-01-02 00:00:00 Completed [facility] Pneumococcal 7 Conjugate, PCV7 (Prevnar7) 2001-01-02 00:00:00 Completed [facility] DTAP 2001-01-02 00:00:00 Completed [facility] Polio (IPV/OPV) 2001-01-02 00:00:00 Completed [facility] Pneumococcal 7 Conjugate, PCV7 (Prevnar7) 2001-01-02 00:00:00 Completed [facility] DTAP 2001-01-02 00:00:00 Completed [facility] Polio (IPV/OPV) 2001-01-02 00:00:00 Completed [facility] Pneumococcal 7 Conjugate, PCV7 (Prevnar7) 2001-01-02 00:00:00 Completed [facility] DTAP 2001-01-02 00:00:00 Completed [facility] Polio (IPV/OPV) 2000 00:00:00 Completed [facility] Pneumococcal 7 Conjugate, PCV7 (Prevnar7) 2000 00:00:00 Completed [facility] DTAP 2000 00:00:00 Completed [facility] HIB 4 Dose Schedule 2000 00:00:00 Completed [facility] Polio (IPV/OPV) 2000 00:00:00 Completed [facility] Pneumococcal 7 Conjugate, PCV7 (Prevnar7) 2000 00:00:00 Completed [facility] DTAP 2000 00:00:00 Completed [facility] HIB 4 Dose Schedule 2000 00:00:00 Completed [facility] Polio (IPV/OPV) 2000 00:00:00 Completed [facility] Pneumococcal 7 Conjugate, PCV7 (Prevnar7) 2000 00:00:00 Completed [facility] DTAP 2000 00:00:00 Completed [facility] HIB 4 Dose Schedule 2000 00:00:00 Completed [facility] Polio (IPV/OPV) 2000 00:00:00 Completed [facility] Pneumococcal 7 Conjugate, PCV7 (Prevnar7) 2000 00:00:00 Completed [facility] DTAP 2000 00:00:00 Completed [facility] HIB 4 Dose Schedule 2000 00:00:00 Completed [facility] Polio (IPV/OPV) 2000 00:00:00 Completed [facility] Pneumococcal 7 Conjugate, PCV7 (Prevnar7) 2000 00:00:00 Completed [facility] DTAP 2000 00:00:00 Completed [facility] HIB 4 Dose Schedule 2000 00:00:00 Completed [facility] Polio (IPV/OPV) 2000 00:00:00 Completed [facility] Pneumococcal 7 Conjugate, PCV7 (Prevnar7) 2000 00:00:00 Completed [facility] DTAP 2000 00:00:00 Completed [facility] HIB 4 Dose Schedule 2000 00:00:00 Completed [facility] Polio (IPV/OPV) 2000 00:00:00 Completed [facility] Pneumococcal 7 Conjugate, PCV7 (Prevnar7) 2000 00:00:00 Completed [facility] DTAP 2000 00:00:00 Completed [facility] HIB 4 Dose Schedule 2000 00:00:00 Completed [facility] Polio (IPV/OPV) 2000 00:00:00 Completed [facility] Pneumococcal 7 Conjugate, PCV7 (Prevnar7) 2000 00:00:00 Completed [facility] DTAP 2000 00:00:00 Completed [facility] HIB 4 Dose Schedule 2000 00:00:00 Completed [facility] Polio (IPV/OPV) 2000 00:00:00 Completed [facility] Pneumococcal 7 Conjugate, PCV7 (Prevnar7) 2000 00:00:00 Completed [facility] DTAP 2000 00:00:00 Completed [facility] HIB 4 Dose Schedule 2000 00:00:00 Completed [facility] Polio (IPV/OPV) 2000 00:00:00 Completed [facility] Pneumococcal 7 Conjugate, PCV7 (Prevnar7) 2000 00:00:00 Completed [facility] DTAP 2000 00:00:00 Completed [facility] HIB 4 Dose Schedule 2000 00:00:00 Completed [facility] Polio (IPV/OPV) 2000 00:00:00 Completed [facility] Pneumococcal 7 Conjugate, PCV7 (Prevnar7) 2000 00:00:00 Completed [facility] DTAP 2000 00:00:00 Completed [facility] HIB 4 Dose Schedule 2000 00:00:00 Completed [facility] Polio (IPV/OPV) 2000 00:00:00 Completed [facility] Pneumococcal 7 Conjugate, PCV7 (Prevnar7) 2000 00:00:00 Completed [facility] DTAP 2000 00:00:00 Completed [facility] HIB 4 Dose Schedule 2000 00:00:00 Completed [facility] Polio (IPV/OPV) 2000 00:00:00 Completed [facility] Pneumococcal 7 Conjugate, PCV7 (Prevnar7) 2000 00:00:00 Completed [facility] DTAP 2000 00:00:00 Completed [facility] HIB 4 Dose Schedule 2000 00:00:00 Completed [facility] Polio (IPV/OPV) 2000 00:00:00 Completed [facility] Pneumococcal 7 Conjugate, PCV7 (Prevnar7) 2000 00:00:00 Completed [facility] DTAP 2000 00:00:00 Completed [facility] HIB 4 Dose Schedule 2000 00:00:00 Completed [facility] Polio (IPV/OPV) 2000 00:00:00 Completed [facility] Pneumococcal 7 Conjugate, PCV7 (Prevnar7) 2000 00:00:00 Completed [facility] DTAP 2000 00:00:00 Completed [facility] HIB 4 Dose Schedule 2000 00:00:00 Completed [facility] Polio (IPV/OPV) 2000 00:00:00 Completed [facility] Pneumococcal 7 Conjugate, PCV7 (Prevnar7) 2000 00:00:00 Completed [facility] DTAP 2000 00:00:00 Completed [facility] HIB 4 Dose Schedule 2000 00:00:00 Completed [facility] Polio (IPV/OPV) 2000 00:00:00 Completed [facility] Pneumococcal 7 Conjugate, PCV7 (Prevnar7) 2000 00:00:00 Completed [facility] DTAP 2000 00:00:00 Completed [facility] HIB 4 Dose Schedule 2000 00:00:00 Completed [facility] Polio (IPV/OPV) 2000 00:00:00 Completed [facility] Pneumococcal 7 Conjugate, PCV7 (Prevnar7) 2000 00:00:00 Completed [facility] DTAP 2000 00:00:00 Completed [facility] HIB 4 Dose Schedule 2000 00:00:00 Completed [facility] Polio (IPV/OPV) 2000 00:00:00 Completed [facility] Pneumococcal 7 Conjugate, PCV7 (Prevnar7) 2000 00:00:00 Completed [facility] DTAP 2000 00:00:00 Completed [facility] HIB 4 Dose Schedule 2000 00:00:00 Completed [facility] Polio (IPV/OPV) 2000 00:00:00 Completed [facility] Pneumococcal 7 Conjugate, PCV7 (Prevnar7) 2000 00:00:00 Completed [facility] DTAP 2000 00:00:00 Completed [facility] HIB 4 Dose Schedule 2000 00:00:00 Completed [facility] Polio (IPV/OPV) 2000 00:00:00 Completed [facility] Pneumococcal 7 Conjugate, PCV7 (Prevnar7) 2000 00:00:00 Completed [facility] DTAP 2000 00:00:00 Completed [facility] HIB 4 Dose Schedule 2000 00:00:00 Completed [facility] Polio (IPV/OPV) 2000 00:00:00 Completed [facility] Pneumococcal 7 Conjugate, PCV7 (Prevnar7) 2000 00:00:00 Completed [facility] DTAP 2000 00:00:00 Completed [facility] HIB 4 Dose Schedule 2000 00:00:00 Completed [facility] Polio (IPV/OPV) 2000 00:00:00 Completed [facility] Pneumococcal 7 Conjugate, PCV7 (Prevnar7) 2000 00:00:00 Completed [facility] DTAP 2000 00:00:00 Completed [facility] HIB 4 Dose Schedule 2000 00:00:00 Completed [facility] Hep B, Adol or Pedi Dosage 2000 00:00:00 Completed [facility] Polio (IPV/OPV) 2000 00:00:00 Completed [facility] Pneumococcal 7 Conjugate, PCV7 (Prevnar7) 2000 00:00:00 Completed [facility] DTAP 2000 00:00:00 Completed [facility] HIB 4 Dose Schedule 2000 00:00:00 Completed [facility] Hep B, Adol or Pedi Dosage 2000 00:00:00 Completed [facility] Polio (IPV/OPV) 2000 00:00:00 Completed [facility] Pneumococcal 7 Conjugate, PCV7 (Prevnar7) 2000 00:00:00 Completed [facility] DTAP 2000 00:00:00 Completed [facility] HIB 4 Dose Schedule 2000 00:00:00 Completed [facility] Hep B, Adol or Pedi Dosage 2000 00:00:00 Completed [facility] Polio (IPV/OPV) 2000 00:00:00 Completed [facility] Pneumococcal 7 Conjugate, PCV7 (Prevnar7) 2000 00:00:00 Completed [facility] DTAP 2000 00:00:00 Completed [facility] HIB 4 Dose Schedule 2000 00:00:00 Completed [facility] Hep B, Adol or Pedi Dosage 2000 00:00:00 Completed [facility] Polio (IPV/OPV) 2000 00:00:00 Completed [facility] Pneumococcal 7 Conjugate, PCV7 (Prevnar7) 2000 00:00:00 Completed [facility] DTAP 2000 00:00:00 Completed [facility] HIB 4 Dose Schedule 2000 00:00:00 Completed [facility] Hep B, Adol or Pedi Dosage 2000 00:00:00 Completed [facility] Polio (IPV/OPV) 2000 00:00:00 Completed [facility] Pneumococcal 7 Conjugate, PCV7 (Prevnar7) 2000 00:00:00 Completed [facility] DTAP 2000 00:00:00 Completed [facility] HIB 4 Dose Schedule 2000 00:00:00 Completed [facility] Hep B, Adol or Pedi Dosage 2000 00:00:00 Completed [facility] Polio (IPV/OPV) 2000 00:00:00 Completed [facility] Pneumococcal 7 Conjugate, PCV7 (Prevnar7) 2000 00:00:00 Completed [facility] DTAP 2000 00:00:00 Completed [facility] HIB 4 Dose Schedule 2000 00:00:00 Completed [facility] Hep B, Adol or Pedi Dosage 2000 00:00:00 Completed [facility] Polio (IPV/OPV) 2000 00:00:00 Completed [facility] Pneumococcal 7 Conjugate, PCV7 (Prevnar7) 2000 00:00:00 Completed [facility] DTAP 2000 00:00:00 Completed [facility] HIB 4 Dose Schedule 2000 00:00:00 Completed [facility] Hep B, Adol or Pedi Dosage 2000 00:00:00 Completed [facility] Polio (IPV/OPV) 2000 00:00:00 Completed [facility] Pneumococcal 7 Conjugate, PCV7 (Prevnar7) 2000 00:00:00 Completed [facility] DTAP 2000 00:00:00 Completed [facility] HIB 4 Dose Schedule 2000 00:00:00 Completed [facility] Hep B, Adol or Pedi Dosage 2000 00:00:00 Completed [facility] Polio (IPV/OPV) 2000 00:00:00 Completed [facility] Pneumococcal 7 Conjugate, PCV7 (Prevnar7) 2000 00:00:00 Completed [facility] DTAP 2000 00:00:00 Completed [facility] HIB 4 Dose Schedule 2000 00:00:00 Completed [facility] Hep B, Adol or Pedi Dosage 2000 00:00:00 Completed [facility] Polio (IPV/OPV) 2000 00:00:00 Completed [facility] Pneumococcal 7 Conjugate, PCV7 (Prevnar7) 2000 00:00:00 Completed [facility] DTAP 2000 00:00:00 Completed [facility] HIB 4 Dose Schedule 2000 00:00:00 Completed [facility] Hep B, Adol or Pedi Dosage 2000 00:00:00 Completed [facility] Polio (IPV/OPV) 2000 00:00:00 Completed [facility] Pneumococcal 7 Conjugate, PCV7 (Prevnar7) 2000 00:00:00 Completed [facility] DTAP 2000 00:00:00 Completed [facility] HIB 4 Dose Schedule 2000 00:00:00 Completed [facility] Hep B, Adol or Pedi Dosage 2000 00:00:00 Completed [facility] Polio (IPV/OPV) 2000 00:00:00 Completed [facility] Pneumococcal 7 Conjugate, PCV7 (Prevnar7) 2000 00:00:00 Completed [facility] DTAP 2000 00:00:00 Completed [facility] HIB 4 Dose Schedule 2000 00:00:00 Completed [facility] Hep B, Adol or Pedi Dosage 2000 00:00:00 Completed [facility] Polio (IPV/OPV) 2000 00:00:00 Completed [facility] Pneumococcal 7 Conjugate, PCV7 (Prevnar7) 2000 00:00:00 Completed [facility] DTAP 2000 00:00:00 Completed [facility] HIB 4 Dose Schedule 2000 00:00:00 Completed [facility] Hep B, Adol or Pedi Dosage 2000 00:00:00 Completed [facility] Polio (IPV/OPV) 2000 00:00:00 Completed [facility] Pneumococcal 7 Conjugate, PCV7 (Prevnar7) 2000 00:00:00 Completed [facility] DTAP 2000 00:00:00 Completed [facility] HIB 4 Dose Schedule 2000 00:00:00 Completed [facility] Hep B, Adol or Pedi Dosage 2000 00:00:00 Completed [facility] Polio (IPV/OPV) 2000 00:00:00 Completed [facility] Pneumococcal 7 Conjugate, PCV7 (Prevnar7) 2000 00:00:00 Completed [facility] DTAP 2000 00:00:00 Completed [facility] HIB 4 Dose Schedule 2000 00:00:00 Completed [facility] Hep B, Adol or Pedi Dosage 2000 00:00:00 Completed [facility] Polio (IPV/OPV) 2000 00:00:00 Completed [facility] Pneumococcal 7 Conjugate, PCV7 (Prevnar7) 2000 00:00:00 Completed [facility] DTAP 2000 00:00:00 Completed [facility] HIB 4 Dose Schedule 2000 00:00:00 Completed [facility] Hep B, Adol or Pedi Dosage 2000 00:00:00 Completed [facility] Polio (IPV/OPV) 2000 00:00:00 Completed [facility] Pneumococcal 7 Conjugate, PCV7 (Prevnar7) 2000 00:00:00 Completed [facility] DTAP 2000 00:00:00 Completed [facility] HIB 4 Dose Schedule 2000 00:00:00 Completed [facility] Hep B, Adol or Pedi Dosage 2000 00:00:00 Completed [facility] Polio (IPV/OPV) 2000 00:00:00 Completed [facility] Pneumococcal 7 Conjugate, PCV7 (Prevnar7) 2000 00:00:00 Completed [facility] DTAP 2000 00:00:00 Completed [facility] HIB 4 Dose Schedule 2000 00:00:00 Completed [facility] Hep B, Adol or Pedi Dosage 2000 00:00:00 Completed [facility] Polio (IPV/OPV) 2000 00:00:00 Completed [facility] Pneumococcal 7 Conjugate, PCV7 (Prevnar7) 2000 00:00:00 Completed [facility] DTAP 2000 00:00:00 Completed [facility] HIB 4 Dose Schedule 2000 00:00:00 Completed [facility] Hep B, Adol or Pedi Dosage 2000 00:00:00 Completed [facility] Polio (IPV/OPV) 2000 00:00:00 Completed [facility] Pneumococcal 7 Conjugate, PCV7 (Prevnar7) 2000 00:00:00 Completed [facility] DTAP 2000 00:00:00 Completed [facility] HIB 4 Dose Schedule 2000 00:00:00 Completed [facility] Hep B, Adol or Pedi Dosage 2000 00:00:00 Completed [facility] Polio (IPV/OPV) 2000 00:00:00 Completed [facility] Pneumococcal 7 Conjugate, PCV7 (Prevnar7) 2000 00:00:00 Completed [facility] DTAP 2000 00:00:00 Completed [facility] HIB 4 Dose Schedule 2000 00:00:00 Completed [facility] Hep B, Adol or Pedi Dosage 2000 00:00:00 Completed [facility] Polio (IPV/OPV) 2000 00:00:00 Completed [facility] Pneumococcal 7 Conjugate, PCV7 (Prevnar7) 2000 00:00:00 Completed [facility] DTAP 2000 00:00:00 Completed [facility] HIB 4 Dose Schedule 2000 00:00:00 Completed [facility] Hep B, Adol or Pedi Dosage 2000 00:00:00 Completed [facility] Polio (IPV/OPV) 2000 00:00:00 Completed [facility] Pneumococcal 7 Conjugate, PCV7 (Prevnar7) 2000 00:00:00 Completed [facility] DTAP 2000 00:00:00 Completed [facility] HIB 4 Dose Schedule 2000 00:00:00 Completed [facility] Hep B, Adol or Pedi Dosage 2000 00:00:00 Completed [facility] Hep B, Adol or Pedi Dosage 2000 00:00:00 Completed [facility] Hep B, Adol or Pedi Dosage 2000 00:00:00 Completed [facility] Hep B, Adol or Pedi Dosage 2000 00:00:00 Completed [facility] Hep B, Adol or Pedi Dosage 2000 00:00:00 Completed [facility] Hep B, Adol or Pedi Dosage 2000 00:00:00 Completed [facility] Hep B, Adol or Pedi Dosage 2000 00:00:00 Completed [facility] Hep B, Adol or Pedi Dosage 2000 00:00:00 Completed [facility] Hep B, Adol or Pedi Dosage 2000 00:00:00 Completed [facility] Hep B, Adol or Pedi Dosage 2000 00:00:00 Completed [facility] Hep B, Adol or Pedi Dosage 2000 00:00:00 Completed [facility] Hep B, Adol or Pedi Dosage 2000 00:00:00 Completed [facility] Hep B, Adol or Pedi Dosage 2000 00:00:00 Completed [facility] Hep B, Adol or Pedi Dosage 2000 00:00:00 Completed [facility] Hep B, Adol or Pedi Dosage 2000 00:00:00 Completed [facility] Hep B, Adol or Pedi Dosage 2000 00:00:00 Completed [facility] Hep B, Adol or Pedi Dosage 2000 00:00:00 Completed [facility] Hep B, Adol or Pedi Dosage 2000 00:00:00 Completed [facility] Hep B, Adol or Pedi Dosage 2000 00:00:00 Completed [facility] Hep B, Adol or Pedi Dosage 2000 00:00:00 Completed [facility] Hep B, Adol or Pedi Dosage 2000 00:00:00 Completed [facility] Hep B, Adol or Pedi Dosage 2000 00:00:00 Completed [facility] Hep B, Adol or Pedi Dosage 2000 00:00:00 Completed [facility] DTAP Unknown Completed [facility] DTAP Unknown Completed [facility] DTAP Unknown Completed [facility] DTAP Unknown Completed [facility] DTAP Unknown Completed [facility] DTAP Unknown Completed [facility] HIB 4 Dose Schedule Unknown Completed [facility] HIB 4 Dose Schedule Unknown Completed [facility] HIB 4 Dose Schedule Unknown Completed [facility] HIB 4 Dose Schedule Unknown Completed [facility] HEPATITIS A Unknown Completed [facility] HEPATITIS A Unknown Completed [facility] Hep B, Adol or Pedi Dosage Unknown Completed [facility] Hep B, Adol or Pedi Dosage Unknown Completed [facility] Hep B, Adol or Pedi Dosage Unknown Completed [facility] Hep B, Adol or Pedi Dosage Unknown Completed [facility] HPV Unknown Completed [facility] Meningococcal Polysaccharide (groups A, C, Y and W-135) conjugate vaccine (MCV4P) Unknown Completed [facility] MMR Unknown Completed [facility] MMR Unknown Completed [facility] Polio (IPV/OPV) Unknown Completed [facility] Polio (IPV/OPV) Unknown Completed [facility] Polio (IPV/OPV) Unknown Completed [facility] Polio (IPV/OPV) Unknown Completed [facility] TDAP Unknown Completed [facility] Varicella (varivax)(chicken pox) Unknown Completed [facility] Varicella (varivax)(chicken pox) Unknown Completed [facility] Pneumococcal 7 Conjugate, PCV7 (Prevnar7) Unknown Completed [facility] Pneumococcal 7 Conjugate, PCV7 (Prevnar7) Unknown Completed [facility] Pneumococcal 7 Conjugate, PCV7 (Prevnar7) Unknown Completed [facility] Pneumococcal 7 Conjugate, PCV7 (Prevnar7) Unknown Completed [facility] DTAP Unknown Completed [facility] DTAP Unknown Completed [facility] DTAP Unknown Completed [facility] DTAP Unknown Completed [facility] DTAP Unknown Completed [facility] DTAP Unknown Completed [facility] HIB 4 Dose Schedule Unknown Completed [facility] HIB 4 Dose Schedule Unknown Completed [facility] HIB 4 Dose Schedule Unknown Completed [facility] HIB 4 Dose Schedule Unknown Completed [facility] HEPATITIS A Unknown Completed [facility] HEPATITIS A Unknown Completed [facility] Hep B, Adol or Pedi Dosage Unknown Completed [facility] Hep B, Adol or Pedi Dosage Unknown Completed [facility] Hep B, Adol or Pedi Dosage Unknown Completed [facility] Hep B, Adol or Pedi Dosage Unknown Completed [facility] HPV Unknown Completed [facility] Meningococcal Polysaccharide (groups A, C, Y and W-135) conjugate vaccine (MCV4P) Unknown Completed [facility] MMR Unknown Completed [facility] MMR Unknown Completed [facility] Polio (IPV/OPV) Unknown Completed [facility] Polio (IPV/OPV) Unknown Completed [facility] Polio (IPV/OPV) Unknown Completed [facility] Polio (IPV/OPV) Unknown Completed [facility] TDAP Unknown Completed [facility] Varicella (varivax)(chicken pox) Unknown Completed [facility] Varicella (varivax)(chicken pox) Unknown Completed [facility] Pneumococcal 7 Conjugate, PCV7 (Prevnar7) Unknown Completed [facility] Pneumococcal 7 Conjugate, PCV7 (Prevnar7) Unknown Completed [facility] Pneumococcal 7 Conjugate, PCV7 (Prevnar7) Unknown Completed [facility] Pneumococcal 7 Conjugate, PCV7 (Prevnar7) Unknown Completed [facility] Vital Signs Vital Name Observation Time Observation Value Comments S ource Systolic blood pressure 2022-05-25 19:07:00 140 mm[Hg] manual [facility] Diastolic blood pressure 2022-05-25 19:07:00 78 mm[Hg] manual [facility] Heart rate 2022-05-25 19:01:00 100 /min [facility] Body temperature 2022-05-25 19:01:00 36.22 [place] [facility] Respiratory rate 2022-05-25 19:01:00 16 /min [facility] Body height 2022-05-25 19:01:00 165.1 cm [facility] Body weight 2022-05-25 19:01:00 137.621 kg [facility] BMI 2022-05-25 19:01:00 50.49 kg/m2 [facility] Systolic blood pressure 2022-05-03 15:17:00 151 mm[Hg] [facility] Diastolic blood pressure 2022-05-03 15:17:00 91 mm[Hg] [facility] Heart rate 2022-05-03 15:17:00 89 /min [facility] Body temperature 2022-05-03 15:17:00 35.5 [place] [facility] Respiratory rate 2022-05-03 15:17:00 18 /min [facility] Body height 2022-05-03 15:17:00 165.1 cm [facility] Body weight 2022-05-03 15:17:00 135.172 kg [facility] BMI 2022-05-03 15:17:00 49.59 kg/m2 [facility] Systolic blood pressure 2022-04-19 15:32:00 152 mm[Hg] [facility] Diastolic blood pressure 2022-04-19 15:32:00 94 mm[Hg] [facility] Heart rate 2022-04-19 15:16:00 82 /min [facility] Body temperature 2022-04-19 15:16:00 35.89 [place] [facility] Respiratory rate 2022-04-19 15:16:00 18 /min [facility] Body height 2022-04-19 15:16:00 165.1 cm [facility] Body weight 2022-04-19 15:16:00 141.522 kg [facility] BMI 2022-04-19 15:16:00 51.92 kg/m2 [facility] Systolic blood pressure 2022-04-13 12:45:00 97 mm[Hg] [facility] Diastolic blood pressure 2022-04-13 12:45:00 51 mm[Hg] [facility] Heart rate 2022-04-13 12:45:00 88 /min [facility] Body temperature 2022-04-13 12:45:00 35.83 Sailaja [facility] Respiratory rate 2022-04-13 12:45:00 18 /min [facility] Oxygen saturation in Arterial blood by Pulse oximetry 2022-04-13 12:45:00 96 /min [facility] Body height 2022-04-10 12:26:00 165.1 cm [facility] Body weight 2022-04-10 12:26:00 146.058 kg [facility] BMI 2022-04-10 12:26:00 53.58 kg/m2 [facility] Systolic blood pressure 2022-04-12 04:30:00 136 mm[Hg] [facility] Diastolic blood pressure 2022-04-12 04:30:00 64 mm[Hg] [facility] Heart rate 2022-04-12 04:30:00 103 /min [facility] Respiratory rate 2022-04-12 04:30:00 18 /min [facility] Oxygen saturation in Arterial blood by Pulse oximetry 2022-04-12 04:30:00 96 /min [facility] Body temperature 2022-04-12 04:00:00 37.44 Sailaja [facility] Body height 2022-04-10 12:26:00 165.1 cm [facility] Body weight 2022-04-10 12:26:00 146.058 kg [facility] BMI 2022-04-10 12:26:00 53.58 kg/m2 [facility] Systolic blood pressure 2022-04-09 13:37:00 154 mm[Hg] [facility] Diastolic blood pressure 2022-04-09 13:37:00 88 mm[Hg] [facility] Heart rate 2022-04-09 13:12:00 86 /min [facility] Body temperature 2022-04-09 13:12:00 35.44 Sailaja [facility] Respiratory rate 2022-04-09 13:12:00 18 /min [facility] Body height 2022-04-09 13:12:00 165.1 cm [facility] Body weight 2022-04-09 13:12:00 146.058 kg [facility] BMI 2022-04-09 13:12:00 53.58 kg/m2 [facility] Systolic blood pressure 2022-04-08 06:45:00 131 mm[Hg] [facility] Diastolic blood pressure 2022-04-08 06:45:00 69 mm[Hg] [facility] Heart rate 2022-04-08 06:45:00 86 /min [facility] Oxygen saturation in Arterial blood by Pulse oximetry 2022-04-08 06:45:00 100 /min [facility] Body temperature 2022-04-08 05:30:00 36.78 Sailaja [facility] Respiratory rate 2022-04-08 05:30:00 17 /min [facility] Systolic blood pressure 2022-04-02 18:31:00 141 mm[Hg] [facility] Diastolic blood pressure 2022-04-02 18:31:00 98 mm[Hg] [facility] Heart rate 2022-04-02 14:56:00 103 /min [facility] Body temperature 2022-04-02 14:56:00 35.5 Sailaja [facility] Respiratory rate 2022-04-02 14:56:00 18 /min [facility] Body height 2022-04-02 14:56:00 165.1 cm [facility] Body weight 2022-04-02 14:56:00 144.244 kg [facility] BMI 2022-04-02 14:56:00 52.92 kg/m2 [facility] Systolic blood pressure 2022-03-29 19:59:00 140 mm[Hg] [facility] Diastolic blood pressure 2022-03-29 19:59:00 90 mm[Hg] [facility] Heart rate 2022-03-29 19:53:00 102 /min [facility] Body temperature 2022-03-29 19:53:00 35.67 Sailaja [facility] Respiratory rate 2022-03-29 19:53:00 18 /min [facility] Body height 2022-03-29 19:53:00 165.1 cm [facility] Body weight 2022-03-29 19:53:00 142.157 kg [facility] BMI 2022-03-29 19:53:00 52.15 kg/m2 [facility] Systolic blood pressure 2022-03-16 17:20:00 125 mm[Hg] [facility] Diastolic blood pressure 2022-03-16 17:20:00 69 mm[Hg] [facility] Heart rate 2022-03-16 17:20:00 92 /min [facility] Oxygen saturation in Arterial blood by Pulse oximetry 2022-03-16 17:20:00 99 /min [facility] Body temperature 2022-03-16 17:00:00 36.78 Sailaja [facility] Respiratory rate 2022-03-16 17:00:00 18 /min [facility] Body height 2022-03-16 17:00:00 165.1 cm [facility] Body weight 2022-03-16 17:00:00 136 kg [facility] BMI 2022-03-16 17:00:00 49.89 kg/m2 [facility] Systolic blood pressure 2022-03-16 15:21:00 138 mm[Hg] [facility] Diastolic blood pressure 2022-03-16 15:21:00 88 mm[Hg] [facility] Heart rate 2022-03-16 15:20:00 88 /min [facility] Body temperature 2022-03-16 15:20:00 36.33 Sailaja [facility] Respiratory rate 2022-03-16 15:20:00 18 /min [facility] Body height 2022-03-16 15:20:00 165.1 cm [facility] Body weight 2022-03-16 15:20:00 136.986 kg [facility] BMI 2022-03-16 15:20:00 50.26 kg/m2 [facility] Systolic blood pressure 2022-03-14 15:45:00 129 mm[Hg] [facility] Diastolic blood pressure 2022-03-14 15:45:00 70 mm[Hg] [facility] Heart rate 2022-03-14 15:45:00 100 /min [facility] Oxygen saturation in Arterial blood by Pulse oximetry 2022-03-14 15:45:00 98 /min [facility] Body temperature 2022-03-14 15:27:00 36.83 Asilaja [facility] Respiratory rate 2022-03-14 15:27:00 18 /min [facility] Body height 2022-03-14 15:27:00 165.1 cm [facility] Body weight 2022-03-14 15:27:00 137.258 kg [facility] BMI 2022-03-14 15:27:00 50.36 kg/m2 [facility] Systolic blood pressure 2022-03-13 14:00:00 117 mm[Hg] [facility] Diastolic blood pressure 2022-03-13 14:00:00 70 mm[Hg] [facility] Heart rate 2022-03-13 14:00:00 102 /min [facility] Oxygen saturation in Arterial blood by Pulse oximetry 2022-03-13 14:00:00 99 /min [facility] Respiratory rate 2022-03-13 12:25:00 18 /min [facility] Body temperature 2022-03-13 02:18:00 36.28 Sailaja [facility] Systolic blood pressure 2022-03-11 14:55:00 135 mm[Hg] [facility] Diastolic blood pressure 2022-03-11 14:55:00 88 mm[Hg] [facility] Heart rate 2022-03-11 14:55:00 101 /min [facility] Body temperature 2022-03-11 14:55:00 36.39 Sailaja [facility] Respiratory rate 2022-03-11 14:55:00 18 /min [facility] Body height 2022-03-11 14:55:00 165.1 cm [facility] Body weight 2022-03-11 14:55:00 135.898 kg [facility] BMI 2022-03-11 14:55:00 49.86 kg/m2 [facility] Systolic blood pressure 2022-03-08 20:43:00 119 mm[Hg] [facility] Diastolic blood pressure 2022-03-08 20:43:00 76 mm[Hg] [facility] Heart rate 2022-03-08 20:43:00 107 /min [facility] Body temperature 2022-03-08 20:30:00 35.72 Sailaja [facility] Body height 2022-03-08 20:30:00 165.1 cm [facility] Body weight 2022-03-08 20:30:00 136.487 kg [facility] BMI 2022-03-08 20:30:00 50.07 kg/m2 [facility] Systolic blood pressure 2022-02-22 16:13:00 156 mm[Hg] [facility] Diastolic blood pressure 2022-02-22 16:13:00 100 mm[Hg] [facility] Heart rate 2022-02-22 16:02:00 118 /min [facility] Body temperature 2022-02-22 16:02:00 35.83 Sailaja [facility] Respiratory rate 2022-02-22 16:02:00 18 /min [facility] Body height 2022-02-22 16:02:00 165.1 cm [facility] Body weight 2022-02-22 16:02:00 133.312 kg [facility] BMI 2022-02-22 16:02:00 48.91 kg/m2 [facility] Systolic blood pressure 2022-02-07 07:00:00 131 mm[Hg] [facility] Diastolic blood pressure 2022-02-07 07:00:00 70 mm[Hg] [facility] Heart rate 2022-02-07 07:00:00 97 /min [facility] Oxygen saturation in Arterial blood by Pulse oximetry 2022-02-07 07:00:00 99 /min [facility] Body temperature 2022-02-07 05:47:00 36.72 Sailaja [facility] Respiratory rate 2022-02-07 05:47:00 20 /min [facility] Body weight 2022-02-07 05:47:00 127.461 kg [facility] BMI 2022-02-07 05:47:00 46.76 kg/m2 [facility] Systolic blood pressure 2022-01-22 14:34:00 141 mm[Hg] [facility] Diastolic blood pressure 2022-01-22 14:34:00 90 mm[Hg] [facility] Heart rate 2022-01-22 14:34:00 109 /min [facility] Body temperature 2022-01-22 14:34:00 35.72 Sailaja [facility] Body height 2022-01-22 14:34:00 165.1 cm [facility] Body weight 2022-01-22 14:34:00 127.506 kg [facility] BMI 2022-01-22 14:34:00 46.78 kg/m2 [facility] Procedures Procedure Date / Time Performed Performing Clinician Source LACTATE DEHYDROGENASE 2022-05-25 19:30:00 [facility] URIC ACID 2022-05-25 19:30:00 Ivan [facility] COMP. METABOLIC PANEL (45111) 2022-05-25 19:30:00 [facility] CBC WITH DIFF 2022-05-25 19:30:00 [facility] NON-STRESS TEST 2022-04-14 01:12:23 [facility] CBC WITH DIFF 2022-04-13 10:16:00 Nicole Man [facility] CBC WITH DIFF 2022-04-12 09:39:00 Olivia Raymundo [facility] CBC WITH DIFF 2022-04-12 09:39:00 Olivia Raymundo [facility] VENOUS CORD GAS 2022-04-12 05:25:00 Mary Barton [facility] VENOUS CORD GAS 2022-04-12 05:25:00 Mary Barton [facility] SECTION 2022-04-12 04:40:00 SrinathKorey thomas [facility] SECTION 2022-04-12 04:40:00 SrinathKorey thomas U [facility] CENTRAL NEURAXIAL BLOCK 2022-04-11 15:05:56 Sandy Lima [facility] HEPATITIS B SURFACE ANTIGEN 2022-04-10 17:12:00 Mary Barton Gracy [facility] GALV ONLY - SYPHILIS IGG/IGM 2022-04-10 [facility]:12[facility] 2022-04-10 17:12:00 Mary Barton [facility] GALV ONLY - SYPHILIS IGG/IGM 2022-04-10 [facility]:12[facility] 2022-04-10 16:39:00 Mary Barton [facility] RHO (D) IMMUNE GLOBULIN 2022-04-10 16:[facility] HB ABO GROUPING 2022-04-10 16:39:00 Mary Barton [facility] RHO (D) IMMUNE GLOBULIN 2022-04-10 16:39:00 [facility] COVID-19 (ID NOW RAPID TESTING) 2022-04-10 12:33:00 John Chadwick [facility] LAB ONLY COVID INTERPRETATION 2022-04-10 12:33:00 John Chadwick [facility] COVID-19 (ID NOW RAPID TESTING) 2022-04-10 12:33:00 John Chadwick [facility] LAB ONLY COVID INTERPRETATION 2022-04-10 12:33:00 John Chadwick [facility] URINALYSIS 2022-04-08 06:11:00 Jennifer Dyer [facility] NON-STRESS TEST 2022-04-02 18:30:18 [facility] POCT URINALYSIS GLUCOSE & PROTEIN 2022-04-02 15:01:00 [facility] NON-STRESS TEST 2022-03-29 21:49:31 [facility] NON-STRESS TEST 2022-03-16 16:44:08 Rosalba Leigh [facility] POCT URINALYSIS GLUCOSE & PROTEIN 2022-03-16 15:25:00 Tami Leigh [facility] CONSENT/REFUSAL FOR DIAGNOSIS AND TREATMENT 2022-03-16 05:01:00 Doctor Unassigned, [place] [facility] URINALYSIS 2022-03-13 02:55:00 Puja Ruvalcaba [facility] CONSENT/REFUSAL FOR DIAGNOSIS AND TREATMENT 2022-03-13 01:55:34 Doctor Unassigned, [place] [facility] NON-STRESS TEST 2022-03-11 16:28:18 Kike Mcgraw [facility] NON-STRESS TEST 2022-03-10 15:38:43 [facility] SECOND AND THIRD TRIMESTER ULTRASOUND 2022-03-08 16:50:00 [facility] GLUCOSE 1 HOUR POST PRANDIAL 2022-02-22 17:15:00 [facility] HEPATIC FUNCTION PANEL (79351) (ALB,T.PRO,BILI T,BU/BC,ALT,AST,ALK PHOS) 2022-02-22 17:15:00 [facility] BASIC METABOLIC PANEL (NA, K, CL, CO2, GLUCOSE, BUN, CREATININE, CA) 2022-02-22 17:15:00 [facility] CBC WITH DIFF 2022-02-22 17:15:00 Yulia Love [facility] HIV 1/2 AG-AB WITH REFLEX 2022-02-22 17:15:00 Sandy Love [facility] TDAP VACCINE, >11 YRS, IM 2022-02-22 16:31:13 Sandy Love [facility] US LOWER EXTREMITY VEIN WITH COMPRESSION LEFT (ONLY FOR RULE OUT DVT) 2022-02-07 09:43:38 Jennifer Dyer [facility] CONSENT/REFUSAL FOR DIAGNOSIS AND TREATMENT 2022-02-07 05:43:44 Doctor Unassigned, [place] [facility] CONSENT/REFUSAL FOR DIAGNOSIS AND TREATMENT 2022-01-03 05:01:00 Doctor Unassigned, [place] [facility] EMERGENCY SERVICES AGREEMENTS AND AUTHORIZATIONS 2022-01-03 05:01:00 Doctor Unassigned, [place] [facility] Encounters Start Date/Time End Date/Time Encounter Type Admission Type Attending [facility] Care Facility Care Department Encounter ID Source 2022-06-17 13:37:59 Outpatient CHW CHW [id number] [facility] 2022-01-03 15:21:29 Outpatient P [facility] [id number] [facility] 2023-12-14 14:30:00 2023-12-14 14:30:00 Outpatient R ARTURO STINSON [facility] [id number] [facility] 2022-05-25 13:30:00 2022-05-25 14:31:57 [id number] 2022-05-25 13:30:00 2022-05-25 14:31:57 [facility] 1.2.840.114 350.1.13.10 4.2.7.2.686 [id number] [facility] 2022-05-03 10:00:00 2022-05-03 10:54:23 Outpatient R IVAN [facility] [id number] [facility] 2022-05-03 10:00:00 2022-05-03 10:54:23 Routine Visit [facility] 1.2.840.114 350.1.13.10 4.2.7.2.686 [id number] [facility] 2022-04-19 10:00:00 2022-04-19 10:46:19 Nurse Visit Visit/Fp, [facility] 1.2.840.114 350.1.13.10 4.2.7.2.686 [id number] [facility] 2022-04-19 10:00:00 2022-04-19 10:00:00 Outpatient YULIA SOOD [facility] [id number] [facility] 2022-04-10 06:49:00 2022-04-13 16:36:00 Hospital Encounter John Chadwick Meagan [facility] 1.2840.114 350.1.13.10 4.2.7.2.686 [id number] [facility] 2022-04-11 09:44:00 2022-04-12 01:29:00 Anesthesia Event Kahlil Lima Brita [facility] 1.2.840.114 350.1.13.10 4.2.7.2.686 [id number] [facility] 2022-04-11 23:00:00 2022-04-12 00:45:00 Surgery Korey Yo [facility] 1.2.840.114 350.1.13.10 4.2.7.2.686 [id number] [facility] 2022-04-09 08:15:00 2022-04-09 09:01:26 Outpatient OUMOU DUONG [facility] [id number] [facility] 2022-04-09 08:15:00 2022-04-09 09:01:26 Outpatient OUMOU DUONG [facility] [id number] [facility] 2022-04-09 08:15:00 2022-04-09 09:01:26 Routine Visit Yulia Love Gabrielle [facility] 1..114 350.1.13.10 4.2.7.2.686 [id number] [facility] 2022-04-07 23:31:00 2022-04-08 02:23:00 Outpatient P SRINATH KOREY [facility] [id number] [facility] 2022-04-07 23:31:00 2022-04-08 02:23:00 Hospital Encounter [facility] 1..114 350.1.13.10 4.2.7.2.686 [id number] [facility] 2022-04-05 11:00:00 2022-04-05 11:00:00 Outpatient P [facility] [id number] [facility] 2022-04-02 09:30:00 2022-04-02 10:42:38 Outpatient R IVAN YULIA [facility] [id number] [facility] 2022-04-02 09:30:00 2022-04-02 10:42:38 Routine Visit 2, [facility] Nst Ultrasound [facility] 1..114 350.1.13.10 4.2.7.2.686 [id number] [facility] 2022-04-02 09:45:00 2022-04-02 10:42:33 Routine Visit [facility] 1..114 350.1.13.10 4.2.7.2.686 [id number] [facility] 2022-04-01 10:30:00 2022-04-01 10:51:29 Supervisor Enrobing Visit 5, [facility] Usg Room [facility] 1.114 350.1.13.10 4.2.7.2.686 [id number] [facility] 2022-04-01 10:30:00 2022-04-01 10:30:00 Outpatient P KOREY YO [facility] [id number] [facility] 2022-03-29 14:15:00 2022-03-29 15:43:53 Outpatient R IVAN, [facility] [id number] [facility] 2022-03-29 14:15:00 2022-03-29 15:43:53 Routine Visit [facility] 1.114 350.1.13.10 4.2.7.2.686 [id number] [facility] 2022-03-23 14:30:00 2022-03-23 14:30:00 Outpatient R IVAN [facility] [id number] [facility] 2022-03-19 14:30:00 2022-03-19 14:30:00 Outpatient R [facility] [id number] [facility] 2022-03-16 11:39:00 2022-03-16 12:28:00 [facility] [id number] 2022-03-16 11:39:00 2022-03-16 12:28:00 Hospital Encounter Julia Ramirez [facility] 1..114 350.1.13.10 4.2.7.2.686 [id number] [facility] 2022-03-16 10:30:00 2022-03-16 11:35:51 [facility] 1.114 350.1.13.10 4.2.7.2.686 [id number] [facility] 2022-03-16 10:15:00 2022-03-16 11:35:21 Outpatient TAMI BROWNE EMILY [facility] [id number] [facility] 2022-03-14 10:18:00 2022-03-14 11:52:00 Outpatient P DARA CARNEY [facility] [id number] [facility] 2022-03-14 10:18:00 2022-03-14 11:52:00 Hospital Encounter [facility] 1..840.114 350.1.13.10 4.2.7.2.686 [id number] [facility] 2022-03-12 20:58:00 2022-03-13 09:37:00 Outpatient X DANIEL [facility] [id number] [facility] 2022-03-12 20:58:00 2022-03-13 09:37:00 Hospital Encounter [facility] 1..840.114 350.1.13.10 4.2.7.2.686 [id number] [facility] 2022-03-11 10:00:00 2022-03-11 10:54:06 Routine Visit [facility] 1.840.114 350.1.13.10 4.2.7.2.686 [id number] [facility] 2022-03-11 10:00:00 2022-03-11 10:54:06 [facility] [id number] 2022-03-08 15:30:00 2022-03-08 16:08:05 Outpatient R IVAN [facility] [id number] [facility] 2022-03-08 15:30:00 2022-03-08 16:08:05 Routine Visit [facility] 1.2.840.114 350.1.13.10 4.2.7.2.686 [id number] [facility] 2022-03-08 11:00:00 2022-03-08 12:05:00 Supervisor Enrobing Visit 3, [facility] Usg Room Felicitas Farias [facility] 1.2.840.114 350.1.13.10 4.2.7.2.686 [id number] [facility] 2022-03-08 11:00:00 2022-03-08 11:00:00 Outpatient P [facility] [id number] [facility] 2022-02-22 11:00:00 2022-02-22 12:20:42 [facility] [id number] 2022-02-22 11:00:00 2022-02-22 12:20:42 Routine Visit vIan [facility] 1.2.840.114 350.1.13.10 4.2.7.2.686 [id number] [facility] 2022-02-08 11:00:00 2022-02-08 11:52:26 Supervisor Enrobing Visit 5, [facility] Us Room HerrRonak burnett [facility] 1.2.840.114 350.1.13.10 4.2.7.2.686 [id number] [facility] 2022-02-08 11:00:00 2022-02-08 11:00:00 Outpatient P [facility] [id number] [facility] 2022-02-08 11:00:00 2022-02-08 11:00:00 Outpatient P RONAK HERR [facility] [id number] [facility] 2022-02-07 00:59:00 2022-02-07 06:33:00 Outpatient P GLADYS [facility] [id number] [facility] 2022-02-07 00:59:00 2022-02-07 06:33:00 Hospital Encounter NickGladys [facility] 1.2.840.114 350.1.13.10 4.2.7.2.686 [id number] [facility] 2022-02-07 00:00:00 2022-02-07 00:00:00 Nurse Triage MartaHailey [facility] 1.2.840.114 350.1.13.10 4.2.7.2.686 [id number] [facility] 2022-01-22 09:30:00 2022-01-22 09:54:42 Outpatient R RIC CAMPOVERDE SHANNON [facility] [id number] [facility] 2022-01-22 09:30:00 2022-01-22 09:54:42 Office Visit Fellow, [facility] 1.20.114 350.1.13.10 4.2.7.2.686 [id number] [facility] 2022-01-11 13:15:00 2022-01-11 13:30:00 Supervisor Enrobing Visit Lab, [facility] Yulia Love [facility] 1.20.114 350.1.13.10 4.2.7.2.686 [id number] [facility] 2022-01-11 11:00:00 2022-01-11 12:13:31 Supervisor Enrobing Visit 2, [facility] Us Room Yulia Love Luis Diego [facility] 1.2840.114 350.1.13.10 4.2.7.2.686 [id number] [facility] 2022-01-11 11:00:00 2022-01-11 11:00:00 Outpatient P [facility] [id number] [facility] 2022-01-11 11:00:00 2022-01-11 11:00:00 Outpatient P RONAK HERR [facility] [id number] [facility] 2022-01-11 11:00:00 2022-01-11 11:00:00 Outpatient P RONAK HERR [facility] [id number] [facility] 2022-01-11 00:00:00 2022-01-11 00:00:00 Patient Secure Msg Love [facility] 1.840.114 350.1.13.10 4.2.7.2.686 [id number] [facility] 2022-01-08 10:30:00 2022-01-08 11:46:16 Office Visit Fellow, Miguel Ángel [facility] Aravind Fisher [facility] 1.840.114 350.1.13.10 4.2.7.2.686 [id number] [facility] 2022-01-08 10:30:00 2022-01-08 11:46:16 Outpatient P ARAVIND FISHER [facility] [id number] [facility] 2022-01-08 10:30:00 2022-01-08 11:46:16 Outpatient ARAVIND STRONG [facility] [id number] [facility] 2022-01-08 10:30:00 2022-01-08 11:46:16 Office Visit Fellow, [facility] Aravind Fisher [facility] [id number] [facility] 2022-01-08 10:30:00 2022-01-08 10:30:00 Outpatient P ARAVIND FISHER [facility] [id number] [facility] 2022-01-03 13:38:00 2022-01-03 15:21:00 Outpatient P KOREY YO [facility] [id number] [facility] 2022-01-03 13:38:00 2022-01-03 15:21:00 Hospital Encounter Srinath Korey [facility] [id number] 4.2.7.2.686 [id number] [facility] 2022-01-03 12:42:00 2022-01-03 13:32:00 Emergency X YAMILEX VELA [facility] ERT [id number] [facility] 2022-01-03 12:42:00 2022-01-03 13:32:00 Emergency Yamilex [facility] 1.2.840.114 350.1.13.10 4.2.7.2.686 [id number] 014 [id number] [facility] 2022-01-03 00:00:00 2022-01-03 00:00:00 Nurse Triage Annamarie Baumann [facility] 1.2.840.114 350.1.13.10 4.2.7.2.686 [id number] [facility] 2022-01-01 00:00:00 2022-01-01 00:00:00 Telephone Ivan, [facility] 1.2.840.114 350.1.13.10 4.2.7.2.686 [id number] 113 [id number] [facility] 2021-12-25 11:00:00 2021-12-25 11:15:00 Routine Visit [facility] 1.2.840.114 350.1.13.10 4.2.7.2.686 [id number] 113 [id number] [facility] 2021-12-25 11:00:00 2021-12-25 11:00:00 Outpatient R YULIA LOVE [facility] [id number] [facility] 2021-12-11 14:00:00 2021-12-11 15:15:00 Supervisor Enrobing Visit 5, [facility] 1..840.114 350.1.13.10 4.2.7.2.686 [id number] [facility] 2021-12-11 14:00:00 2021-12-11 14:00:00 Outpatient P SRINATH [facility] [id number] [facility] 2021-11-30 00:00:00 2021-11-30 00:00:00 Patient Secure Msg [facility] 1.840.114 350.1.13.10 4.2.7.2.686 [id number] 113 [id number] [facility] 2021-11-27 00:00:00 2021-11-27 00:00:[facility] 1.[facility].114 350.1.13.10 4.2.7.2.686 [id number] 113 [id number] [facility] 2021-11-26 11:00:00 2021-11-26 11:56:17 Outpatient R IVAN [facility] [id number] [facility] 2021-11-26 11:00:00 2021-11-26 11:56:17 [facility] 1.840.114 350.1.13.10 4.2.7.2.686 [id number] 113 [id number] [facility] 2021-11-05 00:00:00 2021-11-05 00:00:00 Patient Secure Msg Oumou Freeman [facility] 1..840.114 350.1.13.10 4.2.7.2.686 [id number] 113 [id number] [facility] 2021-11-05 00:00:00 2021-11-05 00:00:00 Telephone [facility] 1.2.840.114 350.1.13.10 4.2.7.2.686 [id number] 113 [id number] [facility] 2021-11-05 00:00:00 2021-11-05 00:00:00 Letter (Out) [facility] 1.2.840.114 350.1.13.10 4.2.7.2.686 [id number] 113 [id number] [facility] 2021-11-03 00:00:00 2021-11-03 00:00:00 Telephone [facility] 1.2.840.114 350.1.13.10 4.2.7.2.686 [id number] 113 [id number] [facility] 2021-10-29 11:00:00 2021-10-29 11:40:26 Outpatient R LYDIA OUMOU [facility] [id number] [facility] 2021-10-29 11:00:00 2021-10-29 11:40:26 Routine Visit Lydia [facility] 1.2.840.114 350.1.13.10 4.2.7.2.686 [id number] 113 [id number] [facility] 2021-10-12 15:00:00 2021-10-12 15:38:54 Supervisor Enrobing Visit 2, [facility] Room Aravind Fisher [facility] 1.2.840.114 350.1.13.10 4.2.7.2.686 [id number] [facility] 2021-10-12 15:00:00 2021-10-12 15:38:54 Outpatient P ARAVIND [facility] [id number] [facility] 2021-10-12 15:00:00 2021-10-12 15:00:00 Outpatient P ARAVIND [facility] [id number] [facility] 2021-10-01 11:00:00 2021-10-01 11:32:02 Outpatient R OUMOU FREEMAN [facility] [id number] [facility] 2021-10-01 11:00:00 2021-10-01 11:32:02 Routine Visit Oumou Freeman [facility] 1..840.114 350.1.13.10 4.2.7.2.686 [id number] 113 [id number] [facility] 2021-10-01 11:00:00 2021-10-01 11:32:02 Outpatient R OUMOU FREEMAN [facility] [id number] [facility] 2021-10-01 11:00:00 2021-10-01 11:32:02 Outpatient R OUMOU FREEMAN [facility] [id number] [facility] 2021-09-10 11:00:00 2021-09-10 11:46:47 Outpatient R ISIS PLASENCIA [facility] [id number] [facility] 2021-09-10 11:00:00 2021-09-10 11:46:47 Outpatient R ISIS PLASENCIA [facility] [id number] [facility] 2021-09-10 11:00:00 2021-09-10 11:46:47 Outpatient R ISIS PLASENCIA [facility] [id number] [facility] 2021-09-10 11:00:00 2021-09-10 11:00:00 Outpatient R ISIS PLASENCIA [facility] [id number] [facility] 2021-09-07 22:26:00 2021-09-08 00:14:00 Emergency X YAMILEX VELA [facility] ERT [id number] [facility] 2021-09-07 22:26:00 2021-09-08 00:14:00 Emergency [facility]x [facility] 1..840.114 350.1.13.10 4.2.7.2.686 [id number] [facility] 2021-09-07 22:26:00 2021-09-08 00:14:00 Emergency X YAMILEX VELA [facility] ERT [id number] [facility] 2021-09-07 22:26:00 2021-09-08 00:14:00 Emergency X YAMILEX VELA [facility] ERT [id number] [facility] 2021-09-06 09:14:00 2021-09-06 12:24:00 Emergency Yamilex Stephens [facility] 1.2.840.114 350.1.13.10 4.2.7.2.686 [id number] [facility] 2021-09-06 09:14:00 2021-09-06 12:24:00 Emergency X YAMILEX STEPHENS [facility] ERT [id number] [facility] 2021-09-06 09:14:00 2021-09-06 12:24:00 Emergency X YAMILEX STEPHENS [facility] ERT [id number] [facility] 2021-09-06 09:14:00 2021-09-06 12:24:00 Emergency X YAMILEX STEPHENS [facility] ERT [id number] [facility] 2021-08-28 14:15:00 2021-08-28 15:31:44 Outpatient JESÚS PERDOMO [facility] [id number] [facility] 2021-08-28 14:15:00 2021-08-28 15:31:44 Initial Visit Pgy1 Oumou Freeman Perry L [facility] 1.2.840.114 350.1.13.10 4.2.7.2.686 [id number] [facility] 2021-08-28 13:45:00 2021-08-28 15:29:00 Outpatient JESÚS PERDOMO [facility] [id number] [facility] 2021-08-28 13:45:00 2021-08-28 15:29:00 Outpatient JESÚS PERDOMO [facility] [id number] [facility] 2021-08-28 00:00:00 2021-08-28 00:00:00 Orders Only Doctor Unassigned, [place] [facility] 1..840.114 350.1.13.10 4.2.7.2.686 [id number] [facility] 2021-05-27 15:28:00 2021-05-27 15:28:00 [id number] 2021-04-23 18:30:00 2021-04-23 18:30:00 Outpatient [facility] [id number] [facility] 2020-09-15 14:09:00 2020-09-15 14:09:00 [facility] [id number] 2020-09-15 14:09:00 2020-09-15 14:09:00 Outpatient MilanamaxineInessa [facility]ados [facility] [id number] [facility] 2020-09-15 14:00:00 2020-09-15 14:00:00 Outpatient JudithInessa granados Rafael W [id number] [facility] 2020-08-28 15:24:00 2020-08-28 15:24:00 [facility] [id number] [facility] 2019-12-04 13:14:00 2019-12-04 13:14:00 [facility] [id number] [facility] 2019-12-01 20:15:31 2019-12-01 23:28:00 Emergency Bisi Vallada[facility] 1..840.114 350.1.13.10 4.2.7.2.686 [id number] [facility] 2019-12-01 20:15:31 2019-12-01 23:28:00 Emergency X BISI VALLADARES [facility] [id number] [facility] 2019-12-01 20:15:31 2019-12-01 23:28:00 [facility] 1.2.840.114 350.1.13.10 4.2.7.2.686 [id number] 2019-09-21 14:20:00 2019-09-21 14:20:00 Outpatient Inessa Emmanuel CHW CHW [id number] [facility] Results Test Description Test Time Test Comments Results Result Co mments Source [facility] (D) IMMUNE [id number] 12:15:40* Test Item Value Reference Range Interpretation Comme nts RHIG CANDIDATE? (test code = 5055) No- see comment Patient is not a candidate for RhIg- Patient is Rh Positive.Performed at [facility] Laboratory Services [facility] Blood [address] Free: [phone] No. [id number] [facility] (D) IMMUNE [id number] 12:15:40* Test Item Value Reference Range Interpretation Comme nts RHIG CANDIDATE? (test code = 5055) No- see comment Patient is not a candidate for RhIg- Patient is Rh Positive.Performed at [facility] Laboratory Services [address] Free: [phone] No. [id number] [facility] [id number] 05:40:28* Test Item Value Reference Range Interpretation Comme nts VENOUS BASE EXCESS, CORD (test code = 1340840079) mEq/L VENOUS PH, CORD (test code = 7303512596) 7.25-7.45 VENOUS PC02, CORD (test code = 5849563351) See_Comment [Automated messa ge] The system which generated this result transmitted reference range: 27 - 49 mmHg. The reference range was not used to interpret this result as normal/abnormal. VENOUS PO2, CORD (test code = 5814426873) See_Comment [Automated me ssage] The system which generated this result transmitted reference range: 17 - 41 mmHg. The reference range was not used to interpret this result as normal/abnormal. VENOUS BICARBONATE, CORD (test code = 0345300331) See_Comment [Automated messa ge] The system which generated this result transmitted reference range: 12 - 29 mEq/L. The reference range was not used to interpret this result as normal/abnormal. [facility] CORD [id number] 05:40:28* Test Item Value Reference Range Interpretation Comme nts VENOUS BASE EXCESS, CORD (test code = 5250728013) mEq/L VENOUS PH, CORD (test code = 2720036898) 7.25-7.45 VENOUS PC02, CORD (test code = 9269887971) See_Comment [Automated messa ge] The system which generated this result transmitted reference range: 27 - 49 mmHg. The reference range was not used to interpret this result as normal/abnormal. VENOUS PO2, CORD (test code = 4368475223) See_Comment [Automated me ssage] The system which generated this result transmitted reference range: 17 - 41 mmHg. The reference range was not used to interpret this result as normal/abnormal. VENOUS BICARBONATE, CORD (test code = 7099299372) See_Comment [Automated messa ge] The system which generated this result transmitted reference range: 12 - 29 mEq/L. The reference range was not used to interpret this result as normal/abnormal. [facility] CORD [id number] 05:38:02* Test Item Value Reference Range Interpretation Comme nts BASE EXCESS, CORD (test code = 3687039096) mEq/L AC PH, CORD (BEAKER) (test code = 7018062162) 7.18-7.38 PC02, CORD (test code = 3687014290) See_Comment [Automated messa ge] The system which generated this result transmitted reference range: 32 - 66 mmHg. The reference range was not used to interpret this result as normal/abnormal. PO2, CORD (test code = 3353698825) See_Comment [Automated messa ge] The system which generated this result transmitted reference range: 10 - 30 mmHg. The reference range was not used to interpret this result as normal/abnormal. BICARBONATE, CORD (test code = 6817857517) See_Comment [Automated messa ge] The system which generated this result transmitted reference range: 17 - 27 mEq/L. The reference range was not used to interpret this result as normal/abnormal. [facility] [id number] 05:38:02* Test Item Value Reference Range Interpretation Comme nts BASE EXCESS, CORD (test code = 5480873823) mEq/L AC PH, CORD (BEAKER) (test code = 7771187566) 7.18-7.38 PC02, CORD (test code = 6774115587) See_Comment [Automated messa ge] The system which generated this result transmitted reference range: 32 - 66 mmHg. The reference range was not used to interpret this result as normal/abnormal. PO2, CORD (test code = 1074068505) See_Comment [Automated messa ge] The system which generated this result transmitted reference range: 10 - 30 mmHg. The reference range was not used to interpret this result as normal/abnormal. BICARBONATE, CORD (test code = 2740318661) See_Comment [Automated messa ge] The system which generated this result transmitted reference range: 17 - 27 mEq/L. The reference range was not used to interpret this result as normal/abnormal. [facility] ONLY - SYPHILIS [id number] 14:55:49* Test Item Value Reference Range Interpretation Comme nts Syphilis IgG/IgM (test code = 10757-2) Non-reactive Non-reactive KASEY (test code = KASEY) Non-reactive - No serologic evidence of T. pallidum infection. Cannot exclude incubating or early syphilis. Submit a second specimen in 2-4 weeks if syphilis is clinically suspected. Equivocal - Further testing to follow. Reactive - Further testing to follow. Lab Interpretation (test code = 32970-0) Normal [facility] ONLY - SYPHILIS [id number] 14:55:49* Test Item Value Reference Range Interpretation Comme nts Syphilis IgG/IgM (test code = 49380-1) Non-reactive Non-reactive KASEY (test code = KASEY) Non-reactive - No serologic evidence of T. pallidum infection. Cannot exclude incubating or early syphilis. Submit a second specimen in 2-4 weeks if syphilis is clinically suspected. Equivocal - Further testing to follow. Reactive - Further testing to follow. Lab Interpretation (test code = 17954-1) Normal [facility] Surface [id number] 18:40:32 * Test Item Value Reference Range Interpretation Comme nts HBsAg Semi-Quantitative (damari t code = 5195-3) Negative Negative [facility] Surface [id number] 18:40:32 * Test Item Value Reference Range Interpretation Comme nts HBsAg Semi-Quantitative (damari t code = 5195-3) Negative Negative [facility] and Screen - ONCE [id number] 18:10:27 * Test Item Value Reference Range Interpretation Comme nts ABO & RH (test code = 20) B POSITIVE Performed at [facility] Laboratory [facility] Blood [address] Free: [phone] No. [id number] IAT (test code = 1185) Negative Performed at [facility] Laboratory [address] Free: [phone] No. [id number] [facility] and Screen - ONCE [id number] 18:10:27 * Test Item Value Reference Range Interpretation Comme nts ABO & RH (test code = 20) B POSITIVE Performed at [facility] Laboratory [place] [address]Toll Free: [phone] No. [id number] IAT (test code = 1185) Negative Performed at [facility] Laboratory [place] [address]Toll Free: [phone] No. [id number] [facility] URINALYSIS GLUCOSE & [id number] 15:01:00* Test Item Value Reference Range Interpretation Comme nts POCT U PROT (test code = 3259) negative Negative - Negat prashant POCT U GLU (test code = 3256) negative Negative - Negati ve Lab Interpretation (test cod e = 96394-4) Normal [facility] URINALYSIS GLUCOSE & [id number] 15:25:00* Test Item Value Reference Range Interpretation Comme nts POCT U PROT (test code = 3259) NEGATIVE Negative - Negat prashant POCT U GLU (test code = 3256) NEGATIVE Negative - Negati ve Lab Interpretation (test cod e = 63436-9) Normal [facility] AG-AB WITH [id number] 19:12:24* Test Item Value Reference Range Interpretation Comme nts HIV Semi-quantitative (test code = 94079-5) Negative Negative KASEY (test code = KASEY) Non-reactive for HIV-1 antigen and HIV-1/HIV-2 antibodies. ?No laboratory evidence of HIV infection. ?Repeat in 2-4 weeks if acute HIV infection is suspected. [facility] PAN[facility] (59325) (ALB,T.PRO,BILI T,BU/BC,ALT,AST,ALK PHOS)2022-02-22 18:51:24* Test Item Value Reference Range Interpretation Comme nts TOTAL BILI (test code = 7676529377) 0.2 mg/dL 0.1-1.1 BILI UNCON (test code = 5491022958) 0.2 mg/dL 0.1-1.1 BILI CONJ (test code = 1935951124) 0.0 mg/dL 0.0-0.3 T PROTEIN (test code = 2981069346) 7.0 g/dL 6.3-8.2 ALBUMIN (test code = 6450653893) 3.9 g/dL 3.5-5.0 ALK PHOS (test code = 2201858102) 89 U/L 34-122 ALTv (test code = 1742-6) 12 U/L 5-35 AST(SGOT) (test code = 7501763827) 19 U/L 13-40 Lab Interpretation (test cod e = 71024-4) Normal [facility]OLIC PANEL (NA, K, CL, CO2, GLUCOSE, BUN, CREATININE, CA)2022-02-22 18:51:24* Test Item Value Reference Range Interpretation Comme nts NA (test code = 4386514187) 136 mmol/L 135-145 K (test code = 4414705565) 3.9 mmol/L 3.5-5.0 CL (test code = 0031359063) 105 mmol/L 98-108 CO2 TOTAL (test code = 6379872032) 23 mmol/L 23-31 AGAP (test code = 5383455321) 2-16 BUN (test code = 4004305324) 11 mg/dL 7-23 GLUCOSE (test code = 4997666589) 123 mg/dL 70-110 H CREATININE (test code = 6140732682) 0.49 mg/dL 0.50-1.04 L CALCIUM (test code = 9734071403) 9.5 mg/dL 8.6-10.6 eGFR (test code = 1208852262) mL/min/1.73m2 KASEY (test code = KASEY) Association of Glomerular Filtration Rate (GFR) and Staging of Kidney Disease* + --+ --+ ------+| GFR (mL/min/1.73 m2) ?| With Kidney Damage ?| ?Without Kidney Damage+ --------+ --------+ +| ?>90 ?| ?Stage one ?| ? Normal ?+ ---+ ---+ -------+| ?60-89 ?| ?Stage two ?| ? Decreased GFR ? + --+ --+ ------+| ?30-59 ?| ?Stage three ?| ? Stage three ? + --+ --+ ------+| ?15-29 ?| ?Stage four ? | ? Stage four ?+ ---+ ---+ -------+| ?<15 (or dialysis) ? ?| ?Stage five ? | ? Stage five ?+ ---+ ---+ -------+ *Each stage assumes the associated GFR level has been in effect for at least three months. ?Stages 1 to 5, with or without kidney disease, indicate chronic kidney disease. Notes: Determination of stages one and two (with eGFR >59mL/min/1.73 m2) requires estimation of kidney damage for at least three months as defined by structural or functional abnormalities of the kidney, manifested by either:Pathological abnormalities or Markers of kidney damage (including abnormalities in the composition of the blood or urine or abnormalities in imaging tests). Lab Interpretation (test code = 14068-4) Abnormal [facility] 1 Hour Post [id number] 18:49:23* Test Item Value Reference Range Interpretation Comme nts GLUC 1 HR (test code = 0679187228) 122 mg/dL 120-170 Lab Interpretation (test cod e = 23408-3) Normal [facility] WITH [id number] 18:26:58* Test Item Value Reference Range Interpretation Comme nts WBC (test code = 6690-2) See_Comment H [Automated messa ge] The system which generated this result transmitted reference range: 4.30 - 11.10 10*3/?L. The reference range was not used to interpret this result as normal/abnormal. RBC (test code = 789-8) See_Comment [Automated messa ge] The system which generated this result transmitted reference range: 3.93 - 5.25 10*6/?L. The reference range was not used to interpret this result as normal/abnormal. HGB (test code = 718-7) 11.8 g/dL 11.6-15.0 HCT (test code = 4544-3) 36.3 % 35.7-45.2 MCV (test code = 787-2) 91.9 fL 80.6-95.5 MCH (test code = 785-6) 29.9 pg 25.9-32.8 MCHC (test code = 786-4) 32.5 g/dL 31.6-35.1 RDW-SD (test code = 31029-4) 43.1 fL 39.0-49.9 RDW-CV (test code = 788-0) 12.8 % 12.0-15.5 PLT (test code = 777-3) See_Comment H [Automated messa ge] The system which generated this result transmitted reference range: 166 - 358 10*3/?L. The reference range was not used to interpret this result as normal/abnormal. MPV (test code = 08297-4) 10.1 fL 9.5-12.9 NRBC/100 WBC (test code = 3302309037) See_Comment [Automated onkea ssage] The system which generated this result transmitted reference range: 0.0 - 10.0 /100 WBCs. The reference range was not used to interpret this result as normal/abnormal. NRBC x10^3 (test code = 7290045880) <0.01 See_Comment [Automated messa ge] The system which generated this result transmitted reference range: 10*3/?L. The reference range was not used to interpret this result as normal/abnormal. GRAN MAT (NEUT) % (test code = 770-8) 79.3 % IMM GRAN % (test code = 9299316189) 0.50 % LYMPH % (test code = 736-9) 16.0 % MONO % (test code = 5905-5) 3.6 % EOS % (test code = 713-8) 0.3 % BASO % (test code = 706-2) 0.3 % GRAN MAT x10^3(ANC) (test code = 4877937324) 9.13 10*3/uL 1.88-7.09 H IMM GRAN x10^3 (test code = 9154355100) 0.06 10*3/uL 0.00-0.06 LYMPH x10^3 (test code = 731-0) 1.84 10*3/uL 1.32-3.29 MONO x10^3 (test code = 742-7) 0.41 10*3/uL 0.33-0.92 EOS x10^3 (test code = 711-2) 0.03 10*3/uL 0.03-0.39 BASO x10^3 (test code = 704-7) 0.03 10*3/uL 0.01-0.07 Lab Interpretation (test code = 79715-2) Abnormal [facility]"
[2023-12-12 22:43] LABS: Absolute Basophils 0.2 K/uL (0-0.5); Absolute Lymphocytes (CBC) 5.1 K/uL (0.7-4.9); Absolute Monocytes 0.9 K/uL (0.1-1.3); Absolute Neutrophil 11.2 K/uL (1.8-8.0); Basophils % 0.9 % (0-1.3); Eosinophils % 0.2 % (0-4.4); Hemoglobin 13.2 g/dL (12.0-15.0); Lymphocytes % 29.3 % (15.3-44.8); MCH 30.1 pg (27.0-35.0); MCHC 33.8 g/dL (32.0-36.0); MPV 8.2 fL (7.6-11.3); Monocytes % 5.3 % (3.3-12.3); Neutrophils % 64.3 % (41.7-73.7); Platelets 451 thou/uL (152-406); RBC Red Blood Cell Count 4.38 M/uL (3.86-4.86); Red Cell Distribution Width 13.4 % (12.1-15.2)
--- NOTE | 2023-12-12 22:43 | RAD REPORT ---
EXAM DESCRIPTION: US - Transvaginal OB - 12/12/2023 10:26 pm CLINICAL HISTORY: with vaginal bleeding COMPARISON: None. FINDINGS: The uterus measures 9 x 4 x 5 centimeters. The endometrial stripe measures 12 millimeters . A gestational sac is not seen within the endometrium. A 4 millimeter round fluid collection is present within the cervical canal. This may represent a nabo thian cyst or gestational sac Ovaries are normal in size and echotexture.. The right and left adnexa unremarkable No significant free fluid IMPRESSION: Nonvisualization of a gestational sac within the endometrium. 4 millimeter round fluid c ollection within the cervical canal. These findings could represent an early intrauterine in which the gestational sac is not se en. Incomplete in which the 4 millimeter round fluid collection within the cervical canal re presents a gestational sac and an ectopic can also have this appearance. This all should be correlated clinically and with serial beta HCG levels. Followup endovaginal sonogr am in 1 week recommended
[2023-12-12 22:50] LABS: Specific Gravity > 1.030 (1.005-1.030); Sqamous Epithelial <5 /HPF (None Seen); Urine Bacteria None Seen /HPF (<20); Urine Bilirubin NEGATIVE (Negative); Urine Blood 2+ (Negative); Urine Clarity Clear (Clear); Urine Color Yellow (Yellow); Urine Crystals Unidentified Few /HPF (None Seen); Urine Culture Reflex Order NOT NEEDED; Urine Glucose NEGATIVE (Negative); Urine Ketones NEGATIVE (Negative); Urine Micro Reflex YN NO BILL MICROSCOPIC; Urine Mucus Slight /HPF (None Seen); Urine Nitrite NEGATIVE (Negative); Urine Protein TRACE (Negative); Urine RBC <5 /HPF (None Seen); Urine Urobilinogen 1+ (Normal); Urine WBC <5 /HPF (<5); Urine pH 6.5 (5.0-7.0)
[2023-12-12 23:04] LABS: Anion Gap 11.6 mEq/L (5.0-15.0); Potassium 3.6 mEq/L (3.5-5.1)
[2023-12-12 23:09] LABS: Albumin 3.6 g/dL (3.4-5.0); Albumin/Globulin Ratio 0.8 (1.1-1.8); Bilirubin Direct 0.1 mg/dL (0-0.2); Bilirubin Indirect, Calculated 0.3 mg/dL (0.2-0.8); Bilirubin Total 0.4 mg/dL (0.2-1.0); Globulin 4.6 g/dL (2.3-3.5); Protein, Total 8.2 g/dL (6.4-8.2)
--- NOTE | 2023-12-12 23:31 | ER ---
Nurse's Notes [facility] Name: Nat Ding Age: 23 yrs Sex: Female : 2000 Arrival Date: 12/12/2023 Time: 21:11 Bed 5 Private MD: Diagnosis: Abnormal uterine and vaginal bleeding, unspecified Presentation: 12/11 21:26 Chief complaint: Patient states: JUST FOUND OUT SHE IS 2 DAYS AGO. STARTED jj7 HAVING LIGHT SPOTTING AFTER INTERCOURSE NOW IT'S A LITTLE MORE BRIGHT RED WITH CRAMPING. NOT PASSING CLOTS OR WEARING A PAD. Coronavirus screen: At this time, the client does not indicate any symptoms associated with coronavirus-19. Ebola Screen: No symptoms or risks identified at this time. Initial Sepsis Screen: Does the patient meet any 2 criteria? HR > 90 bpm. Yes Does the patient have a suspected source of infection? No. Patient's initial sepsis screen is negative. Risk Assessment: Do you want to hurt yourself or someone else? Patient reports no desire to harm self or others. Onset of symptoms was December 12, 2023. 21:26 Method Of Arrival: Ambulatory [facility] 21:26 Acuity: KESHAWN 3 jj7 Triage Assessment: 21:31 General: Appears in no apparent distress. comfortable, Behavior is cooperative, jj7 appropriate for age, anxious. Pain: Complains of pain in pelvis. : Reports vaginal bleeding that is bright red, spotty. 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 Flu vaccine is not up to date. - Social history:: Smoking status: Reported history of juuling and/or vaping. Patient uses street drugs, marijuana, Patient/guardian denies using alcohol, IV drugs. Screenin:33 [facility] ED Fall Risk Assessment (Adult) History of falling in the last 3 months, jj7 including since admission No falls in past 3 months (0 pts) Confusion or Disorientation No (0 pts) Intoxicated or Sedated No (0 pts) Impaired Gait No (0 pts) Mobility Assist Device Used No (0 pt) Altered Elimination No (0 pt) Score/Fall Risk Level 0 - 2 = Low Risk Oriented to surroundings, Maintained a safe environment, Educated pt \T\ family on fall prevention, incl call for assistance when getting out of bed. Abuse screen: Denies threats or abuse. Nutritional screening: No deficits noted. Tuberculosis screening: No symptoms or risk factors identified. Assessment: 22:16 Reassessment: PT TAKEN TO ULTRASOUND SHORTLY AFTER BEING ROOMED FROM TRIAGE. km8 22:31 General: Appears in no apparent distress. comfortable, Behavior is calm, cooperative, km8 appropriate for age. Pain: Complains of pain in pelvis Pain currently is 4 out of 10 on a pain scale. Quality of pain is described as crampy, Is intermittent, Aggravated by repositioning. Neuro: Level of Consciousness is awake, alert, obeys commands, Oriented to person, place, time, situation. Cardiovascular: Denies chest pain, shortness of breath, Patient's skin is warm and dry. Respiratory: Airway is patent Respiratory effort is even, unlabored, Respiratory pattern is regular, symmetrical. GI: Abdomen is obese. : Urine is clear, Reports vaginal bleeding that is spotty. EENT: No signs and/or symptoms were reported regarding the EENT system. Derm: No signs and/or symptoms reported regarding the dermatologic system. Skin is intact, is healthy with good turgor, Skin is dry, Skin is pink, warm \T\ dry. normal, Skin temperature is warm. Musculoskeletal: No signs and/or symptoms reported regarding the musculoskeletal system. Range of motion: intact in all extremities. 23:30 Reassessment: Patient appears in no apparent distress at this time. No changes from km8 previously documented assessment. Patient and/or family updated on plan of care and expected duration. Pain level reassessed. Patient is alert, oriented x 3, equal unlabored respirations, skin warm/dry/pink. Vital Signs: 21:26 BP 169 / 114; Pulse 111; Resp 20; Temp 98.2; Pulse Ox 100% ; Weight 131.54 kg; Height 5 jj7 ft. 5 in. ; Pain 4/10; 22:34 BP 152 / 76; Pulse 90; Resp 18; Pulse Ox 100% on R/A; km8 23:29 BP 133 / 78; Pulse 92; ec2 23:30 BP 133 / 78; Pulse 85; Resp 16; Pulse Ox 98% on R/A; km8 21:26 Body Mass Index 48.26 (131.54 kg, 165.1 cm) j7 21:26 Pain Scale: Adult jj7 Latrell Coma Score: 22:31 Eye Response: spontaneous(4). Motor Response: obeys commands(6). Verbal Response: km8 oriented(5). Total: 15. ED Course: 21:15 Patient arrived in ED. gm2 21:15 Miki Marquez MD is Attending Physician. ec2 21:31 Triage completed. j7 21:31 Arm band placed on right wrist. j7 22:06 Tico Gaines, RN is Primary Nurse. bm8 22:16 Urine collected: clean catch specimen, clear. km8 22:28 Transvaginal OB US In Process Unspecified. EDMS 22:31 Patient has correct armband on for positive identification. Bed in low position. Call [facility] light in reach. Side rails up X 1. Pulse ox on. NIBP on. 22:31 Initial lab(s) drawn, by me, sent to lab. Inserted saline lock: 20 gauge in right 8 antecubital area, using aseptic technique. Blood collected. Patient maintains SpO2 saturation greater than 95% on room air. 23:52 Provided Education on: D/C TEACHING. km8 23:52 No provider procedures requiring assistance completed. IV discontinued, intact, km8 bleeding controlled, No redness/swelling at site. Pressure dressing applied. Administered Medications: No medications were administered Medication: 22:31 VIS not applicable for this client. km8 Outcome: 23:30 Discharge ordered by . ec2 23:52 Discharged to home ambulatory, with significant other, km8 23:52 Condition: good 23:52 Discharge instructions given to patient, significant other, Instructed on discharge instructions, follow up and referral plans. Demonstrated understanding of instructions, follow-up care, 23:54 Patient left the ED. km8 Signatures: Dispatcher [employer] Melisa Lamas RN RN jj7 Miki Marquez MD MD 2 Sara Kohli 2 Joann Everett RN RN 8 Tico Gaines, RN RN 8 Corrections: (The following items were deleted from the chart) 23:57 22:34 BP 152 / ???; Pulse 76bpm; Resp 18bpm; Pulse Ox 100% RA; km8 km8
--- NOTE | 2023-12-12 23:31 | EDPHYS ---
Physician Documentation [facility] Name: Nat Ding Age: 23 yrs Sex: Female : 2000 Arrival Date: 12/12/2023 Time: 21:11 Bed 5 Private MD: ED Physician Miki Marquez HPI: 12/11 21:23 This 23 yrs old Female presents to ER via Unassigned with complaints of ec2 vaginal bleeding and . 21:23 Patient arrives today for evaluation of vaginal bleeding. States that she last had her ec2 period approximately 4 to 5 weeks ago. Patient reports that she is experiencing some abdominal cramping, states that she had noted some vaginal spotting. Patient reports no anemia symptoms. Patient reports she believes she is be positive for her blood type. Patient reports previous history of , previous subchorionic hematoma otherwise baby was delivered at term via . Patient does report previous history of hypertension during her previous .. 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 Flu vaccine is not up to date. - Social history:: Smoking status: Reported history of juuling and/or vaping. Patient uses street drugs, marijuana, Patient/guardian denies using alcohol, IV drugs. ROS: 21:23 Constitutional: as per hpi ec2 Exam: 21:23 Constitutional: GEN: NAD Head: atraumatic Eyes: EOMI Ears: External ears are ec2 normal. CV: regular rate LUNGS: no respiratory distress ABD: non-distended SKIN: no evidence of rashes MSK: no evidence of trauma NEURO: moves all extremities equally . Psych: Anxious individual Vital Signs: 21:26 BP 169 / 114; Pulse 111; Resp 20; Temp 98.2; Pulse Ox 100% ; Weight 131.54 kg; Height 5 jj7 ft. 5 in. ; Pain 4/10; 22:34 BP 152 / 76; Pulse 90; Resp 18; Pulse Ox 100% on R/A; km8 23:29 BP 133 / 78; Pulse 92; ec2 23:30 BP 133 / 78; Pulse 85; Resp 16; Pulse Ox 98% on R/A; km8 21:26 Body Mass Index 48.26 (131.54 kg, 165.1 cm) [facility] 21:26 Pain Scale: Adult [facility] Coma Score: 22:31 Eye Response: spontaneous(4). Motor Response: obeys commands(6). Verbal Response: km8 oriented(5). Total: 15. MDM: 21:23 Patient medically screened. ec2 21:23 Data reviewed: vital signs. ED course: Patient arrives today due to concern for vaginal ec2 bleeding. Examination remarkable for well-appearing nontoxic dividual is otherwise in no acute distress. Will obtain lab work, ultrasound. Evaluate for subchorionic hemorrhage, possible miscarriage, possible normal .. 21:33 ED course: Of note patient is anxious regarding her possible miscarriage, she is noted ec2 to be hypertensive and tachycardic.. 21:39 ED course: Of note patient is noted to be hypertensive today, patient does estimate ec2 approximately approximately 2 to 4 weeks , I suspect her elevated blood pressure today are likely chronic in nature as opposed to preeclampsia. Regardless we will add on protein and creatinine in the urine.. 22:46 ED course: Ultrasound shows no visualized stational sac, does show a 4 mm fluid ec2 collection in the cervical canal, may be early IUP, possible early , possible ectopic. Pending lab work. Patient require repeat lab work and ultrasound in 48 hours regardless.. 23:29 ED course: hCG level 56. Urine as noninfectious appearing. LFTs are within appropriate ec2 ranges. Metabolic profile is reassuring. Patient is B+, will defer RhoGAM. Patient's protein to creatinine ratio is at 0.08. Below the 0.3 threshold. . 23:30 ED course: I will discharge patient home and instructed to return in 48 hours for ec2 repeat hCG.. 12/11 21:16 Order name: CBC with Diff; Complete Time: 22:45 ec2 12/11 21:16 Order name: BMP; Complete Time: 23:28 ec2 12/11 21:16 Order name: HCG-Quantitative; Complete Time: 23:27 ec2 12/11 21:16 Order name: Abo/rh Typing; Complete Time: 23:28 ec2 12/11 21:16 Order name: UAM; Complete Time: 23:28 ec2 12/11 21:33 Order name: Urine For Protein, Random; Complete Time: 22:45 ec2 12/11 21:33 Order name: Urine Creatinine; Complete Time: 23:28 ec2 12/11 21:37 Order name: LFT's; Complete Time: 23:28 ec2 12/11 21:23 Order name: Transvaginal OB US; Complete Time: 22:45 ec2 Administered Medications: No medications were administered Disposition Summary: 12/12/23 23:30 Discharge Ordered Condition: Stable ec2 Diagnosis - Abnormal uterine and vaginal bleeding, unspecified ec2 Followup: ec2 - With: Private Physician - When: - Reason: Re-evaluation by your physician Discharge Instructions: - Discharge Summary Sheet ec2 - Vaginal Bleeding During , First Trimester ec2 Forms: - Medication Reconciliation Form ec2 - Thank You Letter ec2 - Antibiotic Education ec2 - Prescription Opioid Use ec2 - Patient Portal Instructions ec2 - Leadership Thank You Letter ec2 Signatures: Dispatcher [employer] Melisa Lamas RN RN jj7 Miki Marquez MD MD ec2 Corrections: (The following items were deleted from the chart) 21:34 21:23 Constitutional: GEN: NAD Head: atraumatic Eyes: EOMI Ears: External ears are ec2 normal. CV: regular rate LUNGS: no respiratory distress ABD: non-distended SKIN: no evidence of rashes MSK: no evidence of trauma NEURO: moves all extremities equally ec2 21:39 21:23 Patient arrives today for evaluation of vaginal bleeding. States that she last ec2 had her period approximately 4 to 5 weeks ago. Patient reports that she is experiencing some abdominal cramping, states that she had noted some vaginal spotting. Patient reports no anemia symptoms. Patient reports she believes she is be positive for her blood type. Patient reports previous history of , previous subchorionic hematoma otherwise baby was delivered at term via . . ec2
[2023-12-13 00:38] VITALS: BP 133/78; TEMP 98.2; O2SAT 100
== END ==
LOC: ER 21:11
DX: N93.9 Abnormal uterine and vaginal bleeding, unspecified (principal)
CPT/HCPCS: 36415; 76817; 80048; 80076; 81001; 82570; 84156; 84702; 85025; 86900; 86901; 99284

== ENCOUNTER 2024-02-13 05:24 | Emergency (ER) | payer SELFPAY ==
--- OUTSIDE RECORDS SUMMARY | 2024-02-13 05:35 | XMS REPORT | Continuity of Care Document ---
Author Name Unknown Address [address] [facility] [place] [place] [address] [facility] Address [address] [facility] [place] [place] [address] Care Team Providers Care Party Plan Sales Unit Sales Leader Name Role Phone Yulia Morrell Primary Care Physician [phone] LIEN STRATTON Attending Clinician Unavaila varun [facility] Attending Clinician Unava Lien Phan CNM Attending Clinician [phone] YULIA LOVE Attending Clinician Unavailable Yulia Morrell Attending Clinician [phone] Visit/Fp, [facility] Nurse Attending Clinician Un available John Chadwick MD Attending Clinician + [phone] Mae Resendiz DO Attending Clinician [phone] Kahlil Lima MD Attending Clinician [phone] Gayla Harris MD Attending Clinician [phone] Korey Yo DO Attending Clinician [phone] OUMOU FREEMAN Attending Clinician Unavailable Oumou Freeman PA-C Attending Clinician + [phone], [facility] Nst Ultrasound Attending Clinician Unavailable 5, [facility] Attending Clinician Unavaila JULIA Cornelius Attending Clinician Unavailable Julia Ramirez MD Attending Clinician + [phone] Provider, [facility] Attending Clinician Angela TAMI Whitaker Attending Clinician UnavailATMI Gusman Attending Clinician UnavailDARA Heath Attending Clinician Unavailable DARA CARNEY Attending Clinician Unavailable Dara Carney MD Attending Clinician [phone] MAE RESENDIZ Attending Clinician Unavailable 3, [facility] Attending Clinician Unavaila varun Farias MD, Felicitas Yepez Attending Clinician + Ronak Herr MD Attending Clinician + [phone] RONAK HERR Attending Clinician Unavaila GLADYS [place] Attending Clinician Unavailable Gladys Romero MD Attending Clinician [phone] Marta WELLER, Hailey Attending Clinician UnavailRIC Elder Attending Clinician Unavailable RIC CAMPOVERDE Attending Clinician Unavailable Fellow, [facility] Attending Clinician Un available Ric Campoverde MD Attending Clinician + [phone] Lab, [facility] Attending Clinician Unavailable 2, [facility] Room Attending Clinician UnavailAravind Hazel MD Attending Clinician + [phone] ARAVIND FISHER Attending Clinician UnavailYAMILEX Haynes Attending Clinician Unavailable Yamilex Vela MD Attending Clinician + [phone] Annamarie Baumann RN Attending Clinician Unavaila ISIS Alanis Attending Clinician Unavaila Yamilex Will DO Attending Clinician [phone] YAMILEX STEPHENS Attending Clinician Unavailab JESÚS Watson Attending Clinician Unavailable Pgy1 Attending Clinician Unavailable Jesús Jennings MD Attending Clinician + [phone] Doctor Unassigned, [place] Attending Clinician U navailable Inessa Emmanuel Attending Clinician Unavailable Doc Mccormick Attending Clinician Unavailable Ye Bettencourt Attending Clinician Unavailable Bisi Valladares MD Attending Clinician [phone] CASILLAS Attending Clinician Unavailable KOREY YO Admitting Clinician Unavailable Mae Resendiz DO Admitting Clinician [phone] MAE RESENDIZ Admitting Clinician Unavailable JULIA RAMIREZ Admitting Clinician Unavailable uJlia Ramirez MD Admitting Clinician +[phone] DARA CARNEY Admitting Clinician Unavailable Dara Carney MD Admitting Clinician [phone] GLADYS ROMERO Admitting Clinician Unavailable Gladys Romero MD Admitting Clinician [phone] YAMILEX STEPHENS Admitting Clinician Unavailab BISI Cortes Admitting Clinician Unavailable Payers Payer Name Policy Type Policy Number Effective Date Expirati on Date Source [facility] [id number] 2021 00:00:00 MEDICAID PENDING PENDING 2023 00:00:00 Problems Condition Name Condition Details Condition Category Status Onset Date Resolution Date Last Treatment Date Treating Clinician Comments Source delivery delivered delivery delivered Disease Active 2021-0 7-29 00:00: 00 [facility] hemorrhage hemorrhage Disease Active 0 7-29 00:00: 00 [facility] Chronic hypertensi on Chronic hypertensi on Disease Active 2021-0 7-29 00:00: 00 [facility] delivery delivered delivery delivered Disease Active 0 7-29 00:00: 00 [facility] 37 weeks gestation of 37 weeks gestation of Disease Active 2021-0 7-23 00:00: 00 [facility] 36 weeks gestation of 36 weeks gestation of Disease Active 2021-0 7-21 00:00: 00 [facility] Vaginal discharge during in third trimester Vaginal discharge during in third trimester Disease Active 2021-0 6-28 00:00: 00 [facility] CARLITOS (amniotic fluid index) borderline low CARLITOS (amniotic fluid index) borderline low Disease Active 0 6-26 00:00: 00 [facility] 33 weeks gestation of 33 weeks gestation of Disease Active 2021-0 6-25 00:00: 00 [facility] 32 weeks gestation of 32 weeks gestation of Disease Active 0 6-24 00:00: 00 [facility] 28 weeks gestation of 28 weeks gestation of Disease Active 0 5-22 00:00: 00 [facility] Morbid obesity with body mass index of 40.0-49.9 Morbid obesity with body mass index of 40.0-49.9 Disease Active 4-17 00:00: 00 [facility] 23 weeks gestation of 23 weeks gestation of Disease Active 417 00:00: 00 [facility] Chronic hypertensi on affecting Chronic hypertensi on affecting Disease Active 0 417 00:00: 00 [facility] Sciatica of left side Sciatica of left side Disease Active 01-03 00:00: 00 [facility] Allergies, Adverse Reactions, Alerts Allergy Name Allergy Type Status Severity Reaction(s) Onset Date Inactive Date Treating Clinician Comments Source COCONUT DRUG INGREDI Active Med ITCHING 2020-09 2 00:00: 00 [facility] Drug Allergy Active Itching 2020-09 2-10 00:00: 00 [facility] Social History Social Habit Start Date Stop Date Quantity Comments Source ASSERTION 2021-08-08 00:00:00 [facility] function 2023-12-14 00:00:00 2023-12-14 00:00:00 [facility] Alcohol intake 2023-12-14 00:00:00 2023-12-14 00:00:00 Ex-drinker (finding) [facility] Exposure to SARS-CoV-2 (event) 2022-05-15 00:00:00 2022-05-25 14:02:00 Not sure [facility] Tobacco use and exposure 2022-03-29 00:00:00 2022-03-29 00:00:00 Smokeless tobacco non-user [facility] Sex Assigned At 2000 00:00:00 2000 00:00:00 [facility] Smoking Status Start Date Stop Date Source Never smoked tobacco [facility] Medications Ordered Medication Name Filled Medication Name Start Date Stop Date Current Medication? Ordering Clinician Indication Dosage Frequency Signature (SIG) Comments Components Source stephen kessler ioL-iron (MICROGESTI N FE) 1.5 mg-30 mcg (21)/75 mg (7) per tablet 816 00:00: 00 Yes [id number] 1{tbl} Take 1 tablet by mouth in the morning. [facility] foLIC acid 1 mg tablet 04-14 00:00: 00 06-14 04:59 :00 No [id number] 1mg Take 1 tablet by mouth in the morning for 60 days. [facility] ibuprofen (IBU) tablet 600 mg 04-13 17:00: 00 Yes 600mg 600 mg, Oral, Q6H, First dose (after last modificati on) on Tue04/13/22 at 1200, Until Discontinu ed, Routine [facility] vitamin w/FA tablet 04-13 00:00: 00 Yes [id number] 1{tbl} Take 1 tablet by mouth in the morning. [facility] docusate 100 mg capsule 04-13 00:00: 00 Yes [id number] 200mg Take 2 capsules by mouth once daily as needed for Constipati on. [facility] ferrous sulfate 325 mg (65 mg iron) tablet 04-13 00:00: 00 Yes [id number] 325mg Take 1 tablet by mouth in the morning and 1 tablet in the evening. [facility] ibuprofen 600 mg tablet 04-13 00:00: 00 Yes [id number] 600mg Take 1 tablet by mouth every 6 (six) hours as needed (Pain). Take with food or milk. [facility] HYDROcodone -acetaminop hen 5-325 mg tablet 04-13 00:00: 00 Yes [id number] 1{tbl} Take 1 tablet by mouth every 6 (six) hours as needed (Pain) for up to 10 doses. Do not exceed 3 grams of acetaminop hen in 24 hours. Indication s: acute pain [facility] vitamin w/FA tablet 04-13 00:00: 00 Yes [id number] 1{tbl} Take 1 tablet by mouth in the morning. [facility] ascorbic acid, vitamin C, 500 mg tablet 04-13 00:00: 00 06-13 04:59 :00 No [id number] 500mg Take 1 tablet by mouth in the morning and 1 tablet at noon and 1 tablet in the evening. Do all this for 60 days. [facility] human papillomav vac,9-tristen(P F) (GARDASIL-9 ) syringe 0.5 mL 04-12 19:51: 39 Yes .5mL 0.5 mL, Intramuscu lar, ONCE-PRIOR TO DISCHARGE, 1 dose, Starting on Tue04/12/22 at 1451, Until Discontinu ed, Routine, Give vaccine prior to discharge [facility] foLIC acid (FOLATE) tablet 1 mg 04-12 14:00: 00 Yes 1mg 1 mg, Oral, DAILY, First dose on Tue04/12/22 at 0900, Until Discontinu ed, Routine [facility] ferrous sulfate tablet 325 mg 04-12 13:00: 00 Yes 325mg 325 mg, Oral, TID MEALS, First dose on Tue04/12/22 at 0800, Until Discontinu ed, Routine [facility] ascorbic acid (vitamin C) (VITAMIN C) tablet 500 mg 04-12 13:00: 00 Yes 500mg 500 mg, Oral, TID, First dose on Tue04/12/22 at 0800, Until Discontinu ed, Routine [facility] rho(D) immune globulin (RHOGAM) syringe 300 mcg 04-12 12:07: 26 Yes 300ug 300 mcg, Intramuscu lar, ONCE, For 1 dose, Conditiona l, Routine [facility] HYDROcodone -acetaminop hen (NORCO 5) 5-325 mg tablet 2 tablet 04-12 12:07: 19 Yes 2{tbl} 2 tablet, Oral, Q6HPRN, Starting on Tue04/12/22 at 0707, Until Discontinu ed, Routine, Pain (scale 7-10), Alternate with Ibuprofen [facility] HYDROcodone -acetaminop hen (NORCO 5) 5-325 mg tablet 1 tablet 04-12 12:07: 19 Yes 1{tbl} 1 tablet, Oral, Q6HPRN, Starting on Tue04/12/22 at 0707, Until Discontinu ed, Routine, Pain (scale 4-6), Alternate with Ibuprofen [facility] ibuprofen (IBU) tablet 600 mg 04-12 12:07: 19 Yes 600mg 600 mg, Oral, Q6HPRN, Starting on Tue04/12/22 at 0707, Until Discontinu ed, Routine, Pain (scale 1-3) [facility] diphenhydrA MINE (BENADRYL) injection 25 mg 04-12 12:07: 19 Yes 25mg 25 mg, Slow IV Push, Q6HPRN, Starting on Tue04/12/22 at 0707, Until Discontinu ed, Routine, Itching [facility] diphenhydrA MINE (BENADRYL) tablet 25 mg 04-12 12:07: 19 Yes 25mg 25 mg, Oral, Q6HPRN, Starting on Tue04/12/22 at 0707, Until Discontinu ed, Routine, Sleep, Itching [facility] ondansetron (ZOFRAN (PF)) injection 4 mg 04-12 12:07: 19 Yes 4mg 4 mg, Slow IV Push, Q8HPRN, Starting on Tue04/12/22 at 0707, Until Discontinu ed, Routine, Nausea and Vomiting (N/V) [facility] bisacodyL (DULCOLAX) suppository 10 mg 04-12 12:07: 19 Yes 10mg 10 mg, Rectal, QDAILYPRN, Starting on Tue04/12/22 at 0707, Until Discontinu ed, Routine, Constipati on [facility] simethicone (GAS RELIEF (SIMETHICON E)) chewable tablet 160 mg 04-12 12:07: 19 Yes 160mg 160 mg, Oral, PC+HSPRN, Starting on Tue04/12/22 at 0707, Until Discontinu ed, Routine, Gas [facility] docusate (COLACE) capsule 200 mg 04-12 12:07: 19 Yes 200mg 200 mg, Oral, QDAILYPRN, Starting on Tue04/12/22 at 0707, Until Discontinu ed, Routine, Constipati on [facility] magnesium hydroxide (MILK OF MAGNESIA) 400 mg/5 mL suspension 30 mL 04-12 12:07: 19 Yes 30mL 30 mL, Oral, QDAILYPRN, Starting on Tue04/12/22 at 0707, Until Discontinu ed, Routine, Constipati on [facility] lactated ringers IV infusion 500 mL 04-12 06:45: 00 Yes 500mL at 75 mL/hr, 500 mL, IV Infusion, CONTINUOUS , Starting on Tue04/12/22 at 0145, Until Discontinu ed, Routine, PACU [facility] diphenoxyla te-atropine (LOMOTIL) 2.5-0.025 mg tablet 1 tablet 04-12 06:45: 00 04-12 06:31 :00 No 1{tbl} 1 tablet, Oral, ONCE, 1 dose, On Tue04/12/22 at 0145, Routine [facility] HYDROmorpho ne (DILAUDID) injection 0.2 mg 04-12 06:42: 06 Yes .2mg 0.2 mg, Slow IV Push, Q5MIN PRN, 10 doses, Starting on Tue04/12/22 at 0142, Until Discontinu ed, Routine, Pain (scale 7-10), PACU
Us e approved by (Faculty): PACU USE -ANESTHESI A SERVICE-HY DROMORPHON E INJECTIONS [facility] FENTanyl PF (SUBLIMAZE (PF)) injection 25 mcg 04-12 06:42: 06 Yes 25ug 25 mcg, Slow IV Push, Q5MIN PRN, 4 doses, Starting on Tue04/12/22 at 0142, Until Discontinu ed, Routine, Pain (scale 4-6), PACU [facility] acetaminoph en ADULT (OFIRMEV) injection 1,000 mg 04-12 06:42: 06 04-12 07:06 :00 No 1000mg 1,000 mg, IV Infusion, at 400 mL/hr Administer over 15 Minutes, Q4HPRN, 1 dose, Starting on Tue04/12/22 at 0142, Until Tue04/12/22 at 0206, Routine, Pain (scale 1-3), PACU
In dication: Perioperat prashant Patient [facility] FENTanyl PF (SUBLIMAZE (PF)) injection 04-12 05:49: 00 04-12 06:29 :32 No Slow IV Push, ONCE INTRA PROCEDURE, Starting on Tue04/12/22 at 0049, Until Tue04/12/22 at 0129, Routine, Intra-op [facility] morpHINE PF (DURAMORPH- PF) injection 04-12 05:35: 00 04-12 06:29 :32 No Epidural, ONCE INTRA PROCEDURE, Starting on Tue04/12/22 at 0035, Until Tue04/12/22 at 0129, Routine, Intra-op [facility] albumin (ALBUTEIN 5 %) 5 % injection 04-12 05:31: 00 04-12 06:29 :32 No IV Infusion, CONTINUOUS PRN, Starting on Tue04/12/22 at 0031, Until Tue04/12/22 at 0129, Intra-op [facility] tranexamic acid (CYKLOKAPRO N) injection 04-12 05:25: 00 04-12 06:29 :32 No IV Infusion, ONCE INTRA PROCEDURE, Starting on Tue04/12/22 at 0025, Until Tue04/12/22 at 0129, Routine, Intra-op [facility] oxytocin (PITOCIN) 30 units in NS 500 mL IV infusion 04-12 05:24: 00 04-12 06:29 :32 No IV Infusion, CONTINUOUS PRN, Starting on Tue04/12/22 at 0024, Until Tue04/12/22 at 0129, Routine, Intra-op [facility] ketamine (KETALAR) injection 04-12 05:24: 00 04-12 06:29 :32 No Intravenou s, ONCE INTRA PROCEDURE, Starting on Tue04/12/22 at 0024, Until Tue04/12/22 at 0129, Routine, Intra-op [facility] FENTanyl PF (SUBLIMAZE (PF)) injection 04-12 05:20: 00 04-12 06:29 :32 No Epidural, ONCE INTRA PROCEDURE, Starting on Tue04/12/22 at 0020, Until Tue04/12/22 at 012, Routine, Intra-op [facility] midazolam (VERSED) injection 04-12 05:20: 00 04-12 06:29 :32 No IV Push, ONCE INTRA PROCEDURE, Starting on Tue04/12/22 at 0020, Until Tue04/12/22 at 012, Routine, Intra-op [facility] phenylephri ne (VAZCULEP) injection 04-12 05:19: 00 04-12 06:29 :32 No Intravenou s, CONTINUOUS PRN, Starting on Tue04/12/22 at 0019, Until Tue04/12/22 at 012, Routine, Intra-op [facility] lactated ringers IV infusion 04-12 05:13: 00 04-12 06:29 :32 No IV Infusion, CONTINUOUS PRN, Starting on Tue04/12/22 at 0013, Until Tue04/12/22 at 0129, Routine, Intra-op [facility] HYDROcodone -acetaminop hen (NORCO) 10-325 mg tablet 1 tablet 04-12 05:09: 48 04-12 10:17 :00 No 1{tbl} 1 tablet, Oral, Q6HPRN, 1 dose, Starting on Tue04/12/22 at 0009, Until Discontinu ed, Routine, Pain (scale 7-10) [facility] ceFAZolin (ANCEF) injection 04-12 05:05: 22 04-12 06:29 :32 No Slow IV Push, ONCE INTRA PROCEDURE, Starting on Tue04/12/22 at 0005, Until Tue04/12/22 at 0129, NICKO, Intra-op [facility] lidocaine-e pinephrine (XYLOCAINE W/EPINEPHRI NE) 2 %-1:200,000 injection 04-12 05:01: 00 04-12 06:29 :32 No Intravenou s, ONCE INTRA PROCEDURE, Starting on Tue04/12/22 at 0001, Until Tue04/12/22 at 0129, Routine, Intra-op [facility] azithromyci n (ZITHROMAX) 500 mg in NaCl 0.9% (NS) 250 mL VIAL-MATE IV piggyback 04-12 03:41: 20 04-12 05:09 :00 No 500mg 500 mg, IV Piggyback, O.R. HOLDING ONCE, 1 dose, Starting on Tue04/11/22 at 2241, Until Discontinu ed, Administer over 60 Minutes, 250 mL
Reas on for Anti-Infec tive: Surgical Prophylaxi s
Kang rgical Prophylaxi s: CLEAN UP HELPER BANQUET
Duration of therapy: within 24 hours of surgery
Reason for Anti-Infec tive: Surgical Prophylaxi s [facility] terbutaline (BRETHINE) injection 0.25 mg 04-12 03:15: 00 04-12 02:27 :00 No .25mg 0.25 mg, Subcutaneo us, ONCE, 1 dose, On Tue04/11/22 at 2215, Routine [facility] sodium citrate-cit hair acid (BICITRA) 500-334 mg/5 mL solution 30 mL 04-11 21:57: 09 04-12 04:48 :00 No 30mL 30 mL, Oral, PRE-PROCED URE ONCE, 1 dose, Starting on Tue04/11/22 at 1657, Until Discontinu ed, Routine, Surgery/Pr ocedure [facility] lactated ringers IV infusion 500 mL 04-11 21:57: 09 04-11 22:26 :00 No 500mL at 999 mL/hr, 500 mL, IV Infusion, PRN - SEE INSTRUCTIO NS, 1 dose, Starting on Tue04/11/22 at 1657, Until Tue04/11/22 at 1726, Routine [facility] ropivacaine 0.2 % (NAROPIN (PF)) epidural infusion 04-11 14:58: 00 04-12 06:29 :32 No Epidural, CONTINUOUS PRN, Starting on Tue04/11/22 at 0958, Until Tue04/12/22 at 0129, Routine, Intra-op [facility] lidocaine-e pinephrine (XYLOCAINE W/EPINEPHRI NE) 1.5 %-1:200,000 injection 04-11 14:56: 00 04-12 06:29 :32 No Intraderma l, ONCE INTRA PROCEDURE, Starting on Tue04/11/22 at 0956, Until Tue04/12/22 at 0129, Routine, Intra-op [facility] proMETHazin e (PHENERGAN) 12.5 mg in NS 50 mL IV piggyback (CNR) 04-11 11:00: 00 04-11 13:05 :00 No 12.5mg 12.5 mg, IV Piggyback, at 200 mL/hr Administer over 15 Minutes, ONCE, 1 dose, On Tue04/11/22 at 0600, Routine [facility] butorphanol (STADOL) injection 1 mg 04-11 11:00: 00 04-11 10:11 :00 No 1mg 1 mg, IV Push, ONCE, 1 dose, On Tue04/11/22 at 0600, Routine [facility] oxytocin (PITOCIN) 30 units in NS 500 mL IV infusion 04-11 06:44: 13 04-12 12:07 :23 No 2mU/min at 2-40 mL/hr, IV Infusion, TITRATE, Starting on Tue04/11/22 at 0144, Until Tue04/12/22 at 0707, NICKO [facility] butorphanol (STADOL) injection 1 mg 04-11 04:45: 00 04-11 03:47 :00 No 1mg 1 mg, IV Push, ONCE, 1 dose, On 04/10/22 at 2345, Routine [facility] proMETHazin e (PHENERGAN) 12.5 mg in NS 50 mL IV piggyback (CNR) 04-11 04:45: 00 04-11 04:33 :00 No 12.5mg 12.5 mg, IV Piggyback, at 200 mL/hr Administer over 15 Minutes, ONCE, 1 dose, On 04/10/22 at 2345, Routine [facility] labetaloL (NORMODYNE) tablet 100 mg 04-11 01:00: 00 Yes 100mg 100 mg, Oral, Q12H, First dose on 04/10/22 at 2000, Until Discontinu ed, Routine [facility] butorphanol (STADOL) injection 1 mg 04-10 21:15: 00 04-10 20:28 :00 No 1mg 1 mg, IV Push, ONCE, 1 dose, On 04/10/22 at 1615, Routine [facility] D5W-LR IV infusion 1,000 mL 04-10 16:15: 00 04-12 12:07 :23 No 1000mL at 125 mL/hr, IV Infusion, CONTINUOUS , Starting on 04/10/22 at 1115, Until 04/12/22 at 0707, Routine [facility] sodium citrate-cit hair acid (BICITRA) 500-334 mg/5 mL solution 30 mL 04-10 16:07: 56 04-11 14:41 :00 No 30mL 30 mL, Oral, PRE-PROCED URE ONCE, 1 dose, Starting on 04/10/22 at 1107, Until Discontinu ed, Routine, Surgery/Pr ocedure [facility] lactated ringers IV infusion 500 mL 04-10 16:07: 55 04-12 12:07 :23 No 500mL at 999 mL/hr, 500 mL, IV Infusion, PRN - SEE INSTRUCTIO NS, Starting on 04/10/22 at 1107, Until 04/12/22 at 0707, Routine [facility] betamethaso ne acet,sod phos (CELESTONE SOLUSPAN) 6 mg/mL injection 12 mg 03-14 17:00: 00 03-14 16:47 :00 No 12mg 12 mg, Intramuscu lar, ONCE, 1 dose, On 03/14/22 at 1200, Routine [facility] aspirin EC tablet 81 mg 03-13 14:00: 00 Yes 81mg 81 mg, Oral, DAILY, First dose on 03/13/22 at 0900, Until Discontinu ed, Routine [facility] vitamin w/FA tablet 1 tablet 03-13 14:00: 00 Yes 1{tbl} 1 tablet, Oral, DAILY, First dose on 03/13/22 at 0900, Until Discontinu ed, Routine [facility] labetaloL (NORMODYNE) tablet 100 mg 03-13 13:00: 00 Yes 100mg 100 mg, Oral, Q12H, First dose on 03/13/22 at 0800, Until Discontinu ed, Routine [facility] betamethaso ne acet,sod phos (CELESTONE SOLUSPAN) 6 mg/mL injection 12 mg 03-13 08:45: 00 Yes 12mg 12 mg, Intramuscu lar, Q24H, First dose on 03/13/22 at 0345, Until Discontinu ed, Routine [facility] alum-mag hydroxide-s imeth (MAALOX PLUS / MAG-AL PLUS) 200-200-20 mg/5 mL suspension 30 mL 03-13 06:02: 13 Yes 30mL 30 mL, Oral, Q6HPRN, Starting on 03/13/22 at 0102, Until Discontinu ed, Routine, Indigestio n [facility] docusate (COLACE) capsule 200 mg 03-13 06:02: 13 Yes 200mg 200 mg, Oral, QHSPRN, Starting on 03/13/22 at 0102, Until Discontinu ed, Routine, Constipati on [facility] magnesium hydroxide (MILK OF MAGNESIA) 400 mg/5 mL suspension 30 mL 03-13 06:02: 13 Yes 30mL 30 mL, Oral, QDAILYPRN, Starting on 03/13/22 at 0102, Until Discontinu ed, Routine, Constipati on [facility] acetaminoph en (TYLENOL) tablet 1,000 mg 03-13 03:45: 00 03-13 02:54 :00 No 1000mg 1,000 mg, Oral, ONCE, 1 dose, On Tue03/12/22 at 2245, Routine [facility] lactated ringers IV infusion 500 mL 03-13 03:30: 00 03-13 02:50 :00 No 500mL at 999 mL/hr, 500 mL, Intravenou s, ONCE, 1 dose, On Tue03/12/22 at 2230, Routine [facility] labetaloL 100 mg tablet 01-08 00:00: 00 Yes [id number] 100mg Take 1 tablet by mouth every 12 (twelve) hours. [facility] aspirin 81 mg EC tablet 01-08 00:00: 00 04-13 00:00 :00 No [id number] 81mg Take 1 tablet by mouth daily. [facility] cyclobenzap rine 10 mg tablet 01-03 00:00: 00 04-13 00:00 :00 No [id number] 10mg Take 1 tablet by mouth 3 (three) times daily. [facility] ondansetron 4 mg disintegrat ing tablet - 00:00: 00 04-13 00:00 :00 No [id number] 4mg Take 1 tablet by mouth every 8 (eight) hours as needed for Nausea and Vomiting (N/V). [facility] vit 33-iron-fol ic-dha (SELECT-OB + DHA) 29 mg iron-1 mg -250 mg combo pack 1-13 00:00: 00 04-13 00:00 :00 No [id number] 1{packe t} Take 1 Packet by mouth daily. [facility] vit 33-iron-fol ic-dha (SELECT-OB + DHA) 29 mg iron-1 mg -250 mg combo pack 1-13 00:00: 00 04-13 00:00 :00 No [id number] 1{packe t} Take 1 Packet by mouth daily. [facility] hydrALAZINE 10 mg tablet 2020-09 2-19 00:00: 00 04-13 00:00 :00 No [id number] 10mg Take 1 tablet by mouth once daily as needed (BP above 140s). [facility] albuterol 90 mcg/actuati on inhaler 11-30 00:00: 00 11-27 00:00 :00 No [id number] 2{puff} Inhale 2 Puffs every 4 (four) hours as needed for Wheezing or Shortness of Breath. [facility] benzonatate 100 mg capsule 14 00:00: 00 11-27 00:00 :00 No [id number] 100mg Take 1 capsule by mouth 3 (three) times daily as needed for Cough. [facility] acetaminoph en-codeine (TYLENOL #3) 300-30 mg tablet 1-31 00:00: 00 11-27 00:00 :00 No 1{tbl} Take 1 Tab by mouth every 4 (four) hours as needed for Pain unrelieved by non-narcot ic analgesics for up to 10 doses. [facility] Immunizations Ordered Immunization Name Filled Immunization Name Date Status Comments Source TDAP 2022-02-22 00:00:00 Completed [facility] TDAP 2022-02-22 00:00:00 Completed [facility] TDAP 2022-02-22 00:00:00 Completed [facility] TDAP 2022-02-22 00:00:00 Completed [facility] TDAP 2022-02-22 00:00:00 Completed [facility] TDAP 2022-02-22 00:00:00 Completed [facility] TDAP 2022-02-22 00:00:00 Completed [facility] TDAP 2022-02-22 00:00:00 Completed [facility] TDAP 2022-02-22 00:00:00 Completed [facility]ly [facility] TDAP 2022-02-22 00:00:00 Completed [facility] TDAP 2022-02-22 00:00:00 Completed [facility] TDAP 2022-02-22 00:00:00 Completed [facility] TDAP 2022-02-22 00:00:00 Completed [facility] TDAP 2022-02-22 00:00:00 Completed [facility] TDAP 2022-02-22 00:00:00 Completed [facility] TDAP 2022-02-22 00:00:00 Completed [facility] TDAP 2022-02-22 00:00:00 Completed [facility] TDAP 2022-02-22 00:00:00 Completed [facility] TDAP 2022-02-22 00:00:00 Completed [facility] TDAP 2022-02-22 00:00:00 Completed [facility] HPV 2013-06-14 00:00:00 Completed [facility] Meningococcal Polysaccharide (groups A, C, Y and W-135) conjugate vaccine (MCV4P) 2013-06-14 00:00:00 Completed [facility] TDAP 2013-06-14 00:00:00 Completed [facility] Varicella (varivax)(chicken pox) 2013-06-14 00:00:00 Completed [facility] HEPATITIS A 2013-06-14 00:00:00 Completed [facility] HPV 2013-06-14 00:00:00 Completed [facility] Meningococcal Polysaccharide (groups A, C, Y and W-135) conjugate vaccine (MCV4P) 2013-06-14 00:00:00 Completed [facility] TDAP 2013-06-14 00:00:00 Completed [facility] Varicella (varivax)(chicken pox) 2013-06-14 00:00:00 Completed [facility] HEPATITIS A 2013-06-14 00:00:00 Completed [facility] HPV 2013-06-14 00:00:00 Completed [facility] Meningococcal Polysaccharide (groups A, C, Y and W-135) conjugate vaccine (MCV4P) 2013-06-14 00:00:00 Completed [facility] TDAP 2013-06-14 00:00:00 Completed [facility] Varicella (varivax)(chicken pox) 2013-06-14 00:00:00 Completed [facility] HEPATITIS A 2013-06-14 00:00:00 Completed [facility] HPV 2013-06-14 00:00:00 Completed [facility] Meningococcal Polysaccharide (groups A, C, Y and W-135) conjugate vaccine (MCV4P) 2013-06-14 00:00:00 Completed [facility] TDAP 2013-06-14 00:00:00 Completed [facility] Varicella (varivax)(chicken pox) 2013-06-14 00:00:00 Completed [facility] HEPATITIS A 2013-06-14 00:00:00 Completed [facility] HPV 2013-06-14 00:00:00 Completed [facility] Meningococcal Polysaccharide (groups A, C, Y and W-135) conjugate vaccine (MCV4P) 2013-06-14 00:00:00 Completed [facility] TDAP 2013-06-14 00:00:00 Completed [facility] Varicella (varivax)(chicken pox) 2013-06-14 00:00:00 Completed [facility] HEPATITIS A 2013-06-14 00:00:00 Completed [facility] HPV 2013-06-14 00:00:00 Completed [facility] Meningococcal Polysaccharide (groups A, C, Y and W-135) conjugate vaccine (MCV4P) 2013-06-14 00:00:00 Completed [facility] TDAP 2013-06-14 00:00:00 Completed [facility] Varicella (varivax)(chicken pox) 2013-06-14 00:00:00 Completed [facility] HEPATITIS A 2013-06-14 00:00:00 Completed [facility] HPV 2013-06-14 00:00:00 Completed [facility] Meningococcal Polysaccharide (groups A, C, Y and W-135) conjugate vaccine (MCV4P) 2013-06-14 00:00:00 Completed [facility] TDAP 2013-06-14 00:00:00 Completed [facility] Varicella (varivax)(chicken pox) 2013-06-14 00:00:00 Completed [facility] HEPATITIS A 2013-06-14 00:00:00 Completed [facility] HPV 2013-06-14 00:00:00 Completed [facility] Meningococcal Polysaccharide (groups A, C, Y and W-135) conjugate vaccine (MCV4P) 2013-06-14 00:00:00 Completed [facility] TDAP 2013-06-14 00:00:00 Completed [facility] Varicella (varivax)(chicken pox) 2013-06-14 00:00:00 Completed [facility] HEPATITIS A 2013-06-14 00:00:00 Completed [facility] HPV 2013-06-14 00:00:00 Completed [facility] Meningococcal Polysaccharide (groups A, C, Y and W-135) conjugate vaccine (MCV4P) 2013-06-14 00:00:00 Completed [facility] TDAP 2013-06-14 00:00:00 Completed [facility] Varicella (varivax)(chicken pox) 2013-06-14 00:00:00 Completed [facility] HEPATITIS A 2013-06-14 00:00:00 Completed [facility] HPV 2013-06-14 00:00:00 Completed [facility] Meningococcal Polysaccharide (groups A, C, Y and W-135) conjugate vaccine (MCV4P) 2013-06-14 00:00:00 Completed [facility] TDAP 2013-06-14 00:00:00 Completed [facility] Varicella (varivax)(chicken pox) 2013-06-14 00:00:00 Completed [facility] HEPATITIS A 2013-06-14 00:00:00 Completed [facility] HPV 2013-06-14 00:00:00 Completed [facility] Meningococcal Polysaccharide (groups A, C, Y and W-135) conjugate vaccine (MCV4P) 2013-06-14 00:00:00 Completed [facility] TDAP 2013-06-14 00:00:00 Completed [facility] Varicella (varivax)(chicken pox) 2013-06-14 00:00:00 Completed [facility] HEPATITIS A 2013-06-14 00:00:00 Completed [facility] HPV 2013-06-14 00:00:00 Completed [facility] Meningococcal Polysaccharide (groups A, C, Y and W-135) conjugate vaccine (MCV4P) 2013-06-14 00:00:00 Completed [facility] TDAP 2013-06-14 00:00:00 Completed [facility] Varicella (varivax)(chicken pox) 2013-06-14 00:00:00 Completed [facility] HEPATITIS A 2013-06-14 00:00:00 Completed [facility] HPV 2013-06-14 00:00:00 Completed [facility] Meningococcal Polysaccharide (groups A, C, Y and W-135) conjugate vaccine (MCV4P) 2013-06-14 00:00:00 Completed [facility] TDAP 2013-06-14 00:00:00 Completed [facility] Varicella (varivax)(chicken pox) 2013-06-14 00:00:00 Completed [facility] HEPATITIS A 2013-06-14 00:00:00 Completed [facility] HPV 2013-06-14 00:00:00 Completed [facility] Meningococcal Polysaccharide (groups A, C, Y and W-135) conjugate vaccine (MCV4P) 2013-06-14 00:00:00 Completed [facility] TDAP 2013-06-14 00:00:00 Completed [facility] Varicella (varivax)(chicken pox) 2013-06-14 00:00:00 Completed [facility] HEPATITIS A 2013-06-14 00:00:00 Completed [facility] HPV 2013-06-14 00:00:00 Completed [facility] Meningococcal Polysaccharide (groups A, C, Y and W-135) conjugate vaccine (MCV4P) 2013-06-14 00:00:00 Completed [facility] TDAP 2013-06-14 00:00:00 Completed [facility] Varicella (varivax)(chicken pox) 2013-06-14 00:00:00 Completed [facility] HEPATITIS A 2013-06-14 00:00:00 Completed [facility] HPV 2013-06-14 00:00:00 Completed [facility] Meningococcal Polysaccharide (groups A, C, Y and W-135) conjugate vaccine (MCV4P) 2013-06-14 00:00:00 Completed [facility] TDAP 2013-06-14 00:00:00 Completed [facility] Varicella (varivax)(chicken pox) 2013-06-14 00:00:00 Completed [facility] HEPATITIS A 2013-06-14 00:00:00 Completed [facility] HPV 2013-06-14 00:00:00 Completed [facility] Meningococcal Polysaccharide (groups A, C, Y and W-135) conjugate vaccine (MCV4P) 2013-06-14 00:00:00 Completed [facility] TDAP 2013-06-14 00:00:00 Completed [facility] Varicella (varivax)(chicken pox) 2013-06-14 00:00:00 Completed [facility] HEPATITIS A 2013-06-14 00:00:00 Completed [facility] HPV 2013-06-14 00:00:00 Completed [facility] Meningococcal Polysaccharide (groups A, C, Y and W-135) conjugate vaccine (MCV4P) 2013-06-14 00:00:00 Completed [facility] TDAP 2013-06-14 00:00:00 Completed [facility] Varicella (varivax)(chicken pox) 2013-06-14 00:00:00 Completed [facility] HEPATITIS A 2013-06-14 00:00:00 Completed [facility] HPV 2013-06-14 00:00:00 Completed [facility] Meningococcal Polysaccharide (groups A, C, Y and W-135) conjugate vaccine (MCV4P) 2013-06-14 00:00:00 Completed [facility] TDAP 2013-06-14 00:00:00 Completed [facility] Varicella (varivax)(chicken pox) 2013-06-14 00:00:00 Completed [facility] HEPATITIS A 2013-06-14 00:00:00 Completed [facility] HPV 2013-06-14 00:00:00 Completed [facility] Meningococcal Polysaccharide (groups A, C, Y and W-135) conjugate vaccine (MCV4P) 2013-06-14 00:00:00 Completed [facility] TDAP 2013-06-14 00:00:00 Completed [facility] Varicella (varivax)(chicken pox) 2013-06-14 00:00:00 Completed [facility] HEPATITIS A 2013-06-14 00:00:00 Completed [facility] HPV 2013-06-14 00:00:00 Completed [facility] Meningococcal Polysaccharide (groups A, C, Y and W-135) conjugate vaccine (MCV4P) 2013-06-14 00:00:00 Completed [facility] TDAP 2013-06-14 00:00:00 Completed [facility] Varicella (varivax)(chicken pox) 2013-06-14 00:00:00 Completed [facility] HEPATITIS A 2013-06-14 00:00:00 Completed [facility] HPV 2013-06-14 00:00:00 Completed [facility] Meningococcal Polysaccharide (groups A, C, Y and W-135) conjugate vaccine (MCV4P) 2013-06-14 00:00:00 Completed [facility] TDAP 2013-06-14 00:00:00 Completed [facility] Varicella (varivax)(chicken pox) 2013-06-14 00:00:00 Completed [facility] HEPATITIS A 2013-06-14 00:00:00 Completed [facility] HPV 2013-06-14 00:00:00 Completed [facility] Meningococcal Polysaccharide (groups A, C, Y and W-135) conjugate vaccine (MCV4P) 2013-06-14 00:00:00 Completed [facility] TDAP 2013-06-14 00:00:00 Completed [facility] Varicella (varivax)(chicken pox) 2013-06-14 00:00:00 Completed [facility] HEPATITIS A 2013-06-14 00:00:00 Completed [facility] HIB 4 Dose Schedule 2007-01-02 00:00:00 Completed [facility] HIB 4 Dose Schedule 2007-01-02 00:00:00 Completed [facility] HIB 4 Dose Schedule 2007-01-02 00:00:00 Completed [facility] HIB 4 Dose Schedule 2007-01-02 00:00:00 Completed [facility] HIB 4 Dose Schedule 2007-01-02 00:00:00 Completed [facility] HIB 4 Dose Schedule 2007-01-02 00:00:00 Completed [facility] HIB 4 Dose Schedule 2007-01-02 00:00:00 Completed [facility] HIB 4 Dose Schedule 2007-01-02 00:00:00 Completed [facility] HIB 4 Dose Schedule 2007-01-02 00:00:00 Completed [facility] HIB 4 Dose Schedule 2007-01-02 00:00:00 Completed [facility] HIB 4 Dose Schedule 2007-01-02 00:00:00 Completed [facility] HIB 4 Dose Schedule 2007-01-02 00:00:00 Completed [facility] HIB 4 Dose Schedule 2007-01-02 00:00:00 Completed [facility] HIB 4 Dose Schedule 2007-01-02 00:00:00 Completed [facility] HIB 4 Dose Schedule 2007-01-02 00:00:00 Completed [facility] HIB 4 Dose Schedule 2007-01-02 00:00:00 Completed [facility] HIB 4 Dose Schedule 2007-01-02 00:00:00 Completed [facility] HIB 4 Dose Schedule 2007-01-02 00:00:00 Completed [facility] HIB 4 Dose Schedule 2007-01-02 00:00:00 Completed [facility] HIB 4 Dose Schedule 2007-01-02 00:00:00 Completed [facility] HIB 4 Dose Schedule 2007-01-02 00:00:00 Completed [facility] HIB 4 Dose Schedule 2007-01-02 00:00:00 Completed [facility] HIB 4 Dose Schedule 2007-01-02 00:00:00 Completed [facility] HEPATITIS A 2006-01-25 00:00:00 Completed [facility] HEPATITIS A 2006-01-25 00:00:00 Completed [facility] HEPATITIS A 2006-01-25 00:00:00 Completed [facility] HEPATITIS A 2006-01-25 00:00:00 Completed [facility] HEPATITIS A 2006-01-25 00:00:00 Completed [facility] HEPATITIS A 2006-01-25 00:00:00 Completed [facility] HEPATITIS A 2006-01-25 00:00:00 Completed [facility] HEPATITIS A 2006-01-25 00:00:00 Completed [facility] HEPATITIS A 2006-01-25 00:00:00 Completed [facility] HEPATITIS A 2006-01-25 00:00:00 Completed [facility] HEPATITIS A 2006-01-25 00:00:00 Completed [facility] HEPATITIS A 2006-01-25 00:00:00 Completed [facility] HEPATITIS A 2006-01-25 00:00:00 Completed [facility] HEPATITIS A 2006-01-25 00:00:00 Completed [facility] HEPATITIS A 2006-01-25 00:00:00 Completed [facility] HEPATITIS A 2006-01-25 00:00:00 Completed [facility] HEPATITIS A 2006-01-25 00:00:00 Completed [facility] HEPATITIS A 2006-01-25 00:00:00 Completed [facility] HEPATITIS A 2006-01-25 00:00:00 Completed [facility] HEPATITIS A 2006-01-25 00:00:00 Completed [facility] HEPATITIS A 2006-01-25 00:00:00 Completed [facility] HEPATITIS A 2006-01-25 00:00:00 Completed [facility] HEPATITIS A 2006-01-25 00:00:00 Completed [facility] Hep B, Adol or Pedi Dosage 2005-11-18 00:00:00 Completed [facility] MMR 2005-11-18 00:00:00 Completed [facility] Polio (IPV/OPV) 2005-11-18 00:00:00 Completed [facility] Pneumococcal 7 Conjugate, PCV7 (Prevnar7) 2005-11-18 00:00:00 Completed [facility] DTAP 2005-11-18 00:00:00 Completed [facility] Hep B, Adol or Pedi Dosage 2005-11-18 00:00:00 Completed [facility] MMR 2005-11-18 00:00:00 Completed [facility] Polio (IPV/OPV) 2005-11-18 00:00:00 Completed [facility] Pneumococcal 7 Conjugate, PCV7 (Prevnar7) 2005-11-18 00:00:00 Completed [facility] DTAP 2005-11-18 00:00:00 Completed [facility] Hep B, Adol or Pedi Dosage 2005-11-18 00:00:00 Completed [facility] MMR 2005-11-18 00:00:00 Completed [facility] Polio (IPV/OPV) 2005-11-18 00:00:00 Completed [facility] Pneumococcal 7 Conjugate, PCV7 (Prevnar7) 2005-11-18 00:00:00 Completed [facility] DTAP 2005-11-18 00:00:00 Completed [facility] Hep B, Adol or Pedi Dosage 2005-11-18 00:00:00 Completed [facility] MMR 2005-11-18 00:00:00 Completed [facility] Polio (IPV/OPV) 2005-11-18 00:00:00 Completed [facility] Pneumococcal 7 Conjugate, PCV7 (Prevnar7) 2005-11-18 00:00:00 Completed [facility] DTAP 2005-11-18 00:00:00 Completed [facility] Hep B, Adol or Pedi Dosage 2005-11-18 00:00:00 Completed [facility] MMR 2005-11-18 00:00:00 Completed [facility] Polio (IPV/OPV) 2005-11-18 00:00:00 Completed [facility] Pneumococcal 7 Conjugate, PCV7 (Prevnar7) 2005-11-18 00:00:00 Completed [facility] DTAP 2005-11-18 00:00:00 Completed [facility] Hep B, Adol or Pedi Dosage 2005-11-18 00:00:00 Completed [facility] MMR 2005-11-18 00:00:00 Completed [facility] Polio (IPV/OPV) 2005-11-18 00:00:00 Completed [facility] Pneumococcal 7 Conjugate, PCV7 (Prevnar7) 2005-11-18 00:00:00 Completed [facility] DTAP 2005-11-18 00:00:00 Completed [facility] Hep B, Adol or Pedi Dosage 2005-11-18 00:00:00 Completed [facility] MMR 2005-11-18 00:00:00 Completed [facility] Polio (IPV/OPV) 2005-11-18 00:00:00 Completed [facility] Pneumococcal 7 Conjugate, PCV7 (Prevnar7) 2005-11-18 00:00:00 Completed [facility] DTAP 2005-11-18 00:00:00 Completed [facility] Hep B, Adol or Pedi Dosage 2005-11-18 00:00:00 Completed [facility] MMR 2005-11-18 00:00:00 Completed [facility] Polio (IPV/OPV) 2005-11-18 00:00:00 Completed [facility] Pneumococcal 7 Conjugate, PCV7 (Prevnar7) 2005-11-18 00:00:00 Completed [facility] DTAP 2005-11-18 00:00:00 Completed [facility] Hep B, Adol or Pedi Dosage 2005-11-18 00:00:00 Completed [facility] MMR 2005-11-18 00:00:00 Completed [facility] Polio (IPV/OPV) 2005-11-18 00:00:00 Completed [facility] Pneumococcal 7 Conjugate, PCV7 (Prevnar7) 2005-11-18 00:00:00 Completed [facility] DTAP 2005-11-18 00:00:00 Completed [facility] Hep B, Adol or Pedi Dosage 2005-11-18 00:00:00 Completed [facility] MMR 2005-11-18 00:00:00 Completed [facility] Polio (IPV/OPV) 2005-11-18 00:00:00 Completed [facility] Pneumococcal 7 Conjugate, PCV7 (Prevnar7) 2005-11-18 00:00:00 Completed [facility] DTAP 2005-11-18 00:00:00 Completed [facility] Hep B, Adol or Pedi Dosage 2005-11-18 00:00:00 Completed [facility] MMR 2005-11-18 00:00:00 Completed [facility] Polio (IPV/OPV) 2005-11-18 00:00:00 Completed [facility] Pneumococcal 7 Conjugate, PCV7 (Prevnar7) 2005-11-18 00:00:00 Completed [facility] DTAP 2005-11-18 00:00:00 Completed [facility] Hep B, Adol or Pedi Dosage 2005-11-18 00:00:00 Completed [facility] MMR 2005-11-18 00:00:00 Completed [facility] Polio (IPV/OPV) 2005-11-18 00:00:00 Completed [facility] Pneumococcal 7 Conjugate, PCV7 (Prevnar7) 2005-11-18 00:00:00 Completed [facility] DTAP 2005-11-18 00:00:00 Completed [facility] Hep B, Adol or Pedi Dosage 2005-11-18 00:00:00 Completed [facility] MMR 2005-11-18 00:00:00 Completed [facility] Polio (IPV/OPV) 2005-11-18 00:00:00 Completed [facility] Pneumococcal 7 Conjugate, PCV7 (Prevnar7) 2005-11-18 00:00:00 Completed [facility] DTAP 2005-11-18 00:00:00 Completed [facility] Hep B, Adol or Pedi Dosage 2005-11-18 00:00:00 Completed [facility] MMR 2005-11-18 00:00:00 Completed [facility] Polio (IPV/OPV) 2005-11-18 00:00:00 Completed [facility] Pneumococcal 7 Conjugate, PCV7 (Prevnar7) 2005-11-18 00:00:00 Completed [facility] DTAP 2005-11-18 00:00:00 Completed [facility] Hep B, Adol or Pedi Dosage 2005-11-18 00:00:00 Completed [facility] MMR 2005-11-18 00:00:00 Completed [facility] Polio (IPV/OPV) 2005-11-18 00:00:00 Completed [facility] Pneumococcal 7 Conjugate, PCV7 (Prevnar7) 2005-11-18 00:00:00 Completed [facility] DTAP 2005-11-18 00:00:00 Completed [facility] Hep B, Adol or Pedi Dosage 2005-11-18 00:00:00 Completed [facility] MMR 2005-11-18 00:00:00 Completed [facility] Polio (IPV/OPV) 2005-11-18 00:00:00 Completed [facility] Pneumococcal 7 Conjugate, PCV7 (Prevnar7) 2005-11-18 00:00:00 Completed [facility] DTAP 2005-11-18 00:00:00 Completed [facility] Hep B, Adol or Pedi Dosage 2005-11-18 00:00:00 Completed [facility] MMR 2005-11-18 00:00:00 Completed [facility] Polio (IPV/OPV) 2005-11-18 00:00:00 Completed [facility] Pneumococcal 7 Conjugate, PCV7 (Prevnar7) 2005-11-18 00:00:00 Completed [facility] DTAP 2005-11-18 00:00:00 Completed [facility] Hep B, Adol or Pedi Dosage 2005-11-18 00:00:00 Completed [facility] MMR 2005-11-18 00:00:00 Completed [facility] Polio (IPV/OPV) 2005-11-18 00:00:00 Completed [facility] Pneumococcal 7 Conjugate, PCV7 (Prevnar7) 2005-11-18 00:00:00 Completed [facility] DTAP 2005-11-18 00:00:00 Completed [facility] Hep B, Adol or Pedi Dosage 2005-11-18 00:00:00 Completed [facility] MMR 2005-11-18 00:00:00 Completed [facility] Polio (IPV/OPV) 2005-11-18 00:00:00 Completed [facility] Pneumococcal 7 Conjugate, PCV7 (Prevnar7) 2005-11-18 00:00:00 Completed [facility] DTAP 2005-11-18 00:00:00 Completed [facility] Hep B, Adol or Pedi Dosage 2005-11-18 00:00:00 Completed [facility] MMR 2005-11-18 00:00:00 Completed [facility] Polio (IPV/OPV) 2005-11-18 00:00:00 Completed [facility] Pneumococcal 7 Conjugate, PCV7 (Prevnar7) 2005-11-18 00:00:00 Completed [facility] DTAP 2005-11-18 00:00:00 Completed [facility] Hep B, Adol or Pedi Dosage 2005-11-18 00:00:00 Completed [facility] MMR 2005-11-18 00:00:00 Completed [facility] Polio (IPV/OPV) 2005-11-18 00:00:00 Completed [facility] Pneumococcal 7 Conjugate, PCV7 (Prevnar7) 2005-11-18 00:00:00 Completed [facility] DTAP 2005-11-18 00:00:00 Completed [facility] Hep B, Adol or Pedi Dosage 2005-11-18 00:00:00 Completed [facility] MMR 2005-11-18 00:00:00 Completed [facility] Polio (IPV/OPV) 2005-11-18 00:00:00 Completed [facility] Pneumococcal 7 Conjugate, PCV7 (Prevnar7) 2005-11-18 00:00:00 Completed [facility] DTAP 2005-11-18 00:00:00 Completed [facility] Hep B, Adol or Pedi Dosage 2005-11-18 00:00:00 Completed [facility] MMR 2005-11-18 00:00:00 Completed [facility] Polio (IPV/OPV) 2005-11-18 00:00:00 Completed [facility] Pneumococcal 7 Conjugate, PCV7 (Prevnar7) 2005-11-18 00:00:00 Completed [facility] DTAP 2005-11-18 00:00:00 Completed [facility] DTAP 2002-02-24 00:00:00 Completed [facility] DTAP 2002-02-24 00:00:00 Completed [facility] DTAP 2002-02-24 00:00:00 Completed [facility] DTAP 2002-02-24 00:00:00 Completed [facility] DTAP 2002-02-24 00:00:00 Completed [facility] DTAP 2002-02-24 00:00:00 Completed [facility] DTAP 2002-02-24 00:00:00 Completed [facility] DTAP 2002-02-24 00:00:00 Completed [facility] DTAP 2002-02-24 00:00:00 Completed [facility] DTAP 2002-02-24 00:00:00 Completed [facility] DTAP 2002-02-24 00:00:00 Completed [facility] DTAP 2002-02-24 00:00:00 Completed [facility] DTAP 2002-02-24 00:00:00 Completed [facility] DTAP 2002-02-24 00:00:00 Completed [facility] DTAP 2002-02-24 00:00:00 Completed [facility] DTAP 2002-02-24 00:00:00 Completed [facility] DTAP 2002-02-24 00:00:00 Completed [facility] DTAP 2002-02-24 00:00:00 Completed [facility] DTAP 2002-02-24 00:00:00 Completed [facility] DTAP 2002-02-24 00:00:00 Completed [facility] DTAP 2002-02-24 00:00:00 Completed [facility] DTAP 2002-02-24 00:00:00 Completed [facility] DTAP 2002-02-24 00:00:00 Completed [facility] DTAP 2001-09-26 00:00:00 Completed [facility] DTAP 2001-09-26 00:00:00 Completed [facility] DTAP 2001-09-26 00:00:00 Completed [facility] DTAP 2001-09-26 00:00:00 Completed [facility] DTAP 2001-09-26 00:00:00 Completed [facility] DTAP 2001-09-26 00:00:00 Completed [facility] DTAP 2001-09-26 00:00:00 Completed [facility] DTAP 2001-09-26 00:00:00 Completed [facility] DTAP 2001-09-26 00:00:00 Completed [facility] DTAP 2001-09-26 00:00:00 Completed [facility] DTAP 2001-09-26 00:00:00 Completed [facility] DTAP 2001-09-26 00:00:00 Completed [facility] DTAP 2001-09-26 00:00:00 Completed [facility] DTAP 2001-09-26 00:00:00 Completed [facility] DTAP 2001-09-26 00:00:00 Completed [facility] DTAP 2001-09-26 00:00:00 Completed [facility] DTAP 2001-09-26 00:00:00 Completed [facility] DTAP 2001-09-26 00:00:00 Completed [facility] DTAP 2001-09-26 00:00:00 Completed [facility] DTAP 2001-09-26 00:00:00 Completed [facility] DTAP 2001-09-26 00:00:00 Completed [facility] DTAP 2001-09-26 00:00:00 Completed [facility] DTAP 2001-09-26 00:00:00 Completed [facility] Hep B, Adol or Pedi Dosage 2001-08-04 00:00:00 Completed [facility] Hep B, Adol or Pedi Dosage 2001-08-04 00:00:00 Completed [facility] Hep B, Adol or Pedi Dosage 2001-08-04 00:00:00 Completed [facility] Hep B, Adol or Pedi Dosage 2001-08-04 00:00:00 Completed [facility] Hep B, Adol or Pedi Dosage 2001-08-04 00:00:00 Completed [facility] Hep B, Adol or Pedi Dosage 2001-08-04 00:00:00 Completed [facility] Hep B, Adol or Pedi Dosage 2001-08-04 00:00:00 Completed [facility] Hep B, Adol or Pedi Dosage 2001-08-04 00:00:00 Completed [facility] Hep B, Adol or Pedi Dosage 2001-08-04 00:00:00 Completed [facility] Hep B, Adol or Pedi Dosage 2001-08-04 00:00:00 Completed [facility] Hep B, Adol or Pedi Dosage 2001-08-04 00:00:00 Completed [facility] Hep B, Adol or Pedi Dosage 2001-08-04 00:00:00 Completed [facility] Hep B, Adol or Pedi Dosage 2001-08-04 00:00:00 Completed [facility] Hep B, Adol or Pedi Dosage 2001-08-04 00:00:00 Completed [facility] Hep B, Adol or Pedi Dosage 2001-08-04 00:00:00 Completed [facility] Hep B, Adol or Pedi Dosage 2001-08-04 00:00:00 Completed [facility] Hep B, Adol or Pedi Dosage 2001-08-04 00:00:00 Completed [facility] Hep B, Adol or Pedi Dosage 2001-08-04 00:00:00 Completed [facility] Hep B, Adol or Pedi Dosage 2001-08-04 00:00:00 Completed [facility] Hep B, Adol or Pedi Dosage 2001-08-04 00:00:00 Completed [facility] Hep B, Adol or Pedi Dosage 2001-08-04 00:00:00 Completed [facility] Hep B, Adol or Pedi Dosage 2001-08-04 00:00:00 Completed [facility] Hep B, Adol or Pedi Dosage 2001-08-04 00:00:00 Completed [facility] MMR 2001-07-18 00:00:00 Completed [facility] Varicella (varivax)(chicken pox) 2001-07-18 00:00:00 Completed [facility] MMR 2001-07-18 00:00:00 Completed [facility] Varicella (varivax)(chicken pox) 2001-07-18 00:00:00 Completed [facility] MMR 2001-07-18 00:00:00 Completed [facility] Varicella (varivax)(chicken pox) 2001-07-18 00:00:00 Completed [facility] MMR 2001-07-18 00:00:00 Completed [facility] Varicella (varivax)(chicken pox) 2001-07-18 00:00:00 Completed [facility] MMR 2001-07-18 00:00:00 Completed [facility] Varicella (varivax)(chicken pox) 2001-07-18 00:00:00 Completed [facility] MMR 2001-07-18 00:00:00 Completed [facility] Varicella (varivax)(chicken pox) 2001-07-18 00:00:00 Completed [facility] 2001-07-18 00:00:00 Completed [facility] Varicella (varivax)(chicken pox) 2001-07-18 00:00:00 Completed [facility] 2001-07-18 00:00:00 Completed [facility] Varicella (varivax)(chicken pox) 2001-07-18 00:00:00 Completed [facility] 2001-07-18 00:00:00 Completed [facility] Varicella (varivax)(chicken pox) 2001-07-18 00:00:00 Completed [facility] 2001-07-18 00:00:00 Completed [facility] Varicella (varivax)(chicken pox) 2001-07-18 00:00:00 Completed [facility] 2001-07-18 00:00:00 Completed [facility] Varicella (varivax)(chicken pox) 2001-07-18 00:00:00 Completed [facility] 2001-07-18 00:00:00 Completed [facility] Varicella (varivax)(chicken pox) 2001-07-18 00:00:00 Completed [facility] 2001-07-18 00:00:00 Completed [facility] Varicella (varivax)(chicken pox) 2001-07-18 00:00:00 Completed [facility] 2001-07-18 00:00:00 Completed [facility] Varicella (varivax)(chicken pox) 2001-07-18 00:00:00 Completed [facility] 2001-07-18 00:00:00 Completed [facility] Varicella (varivax)(chicken pox) 2001-07-18 00:00:00 Completed [facility] 2001-07-18 00:00:00 Completed [facility] Varicella (varivax)(chicken pox) 2001-07-18 00:00:00 Completed [facility] 2001-07-18 00:00:00 Completed [facility] Varicella (varivax)(chicken pox) 2001-07-18 00:00:00 Completed [facility] MMR 2001-07-18 00:00:00 Completed [facility] Varicella (varivax)(chicken pox) 2001-07-18 00:00:00 Completed [facility] MMR 2001-07-18 00:00:00 Completed [facility] Varicella (varivax)(chicken pox) 2001-07-18 00:00:00 Completed [facility] MMR 2001-07-18 00:00:00 Completed [facility] Varicella (varivax)(chicken pox) 2001-07-18 00:00:00 Completed [facility] MMR 2001-07-18 00:00:00 Completed [facility] Varicella (varivax)(chicken pox) 2001-07-18 00:00:00 Completed [facility] MMR 2001-07-18 00:00:00 Completed [facility] Varicella (varivax)(chicken pox) 2001-07-18 00:00:00 Completed [facility] MMR 2001-07-18 00:00:00 Completed [facility] Varicella (varivax)(chicken pox) 2001-07-18 00:00:00 Completed [facility] HIB 4 Dose Schedule 2001-06-20 00:00:00 Completed [facility] HIB 4 Dose Schedule 2001-06-20 00:00:00 Completed [facility] HIB 4 Dose Schedule 2001-06-20 00:00:00 Completed [facility] HIB 4 Dose Schedule 2001-06-20 00:00:00 Completed [facility] HIB 4 Dose Schedule 2001-06-20 00:00:00 Completed [facility] HIB 4 Dose Schedule 2001-06-20 00:00:00 Completed [facility] HIB 4 Dose Schedule 2001-06-20 00:00:00 Completed [facility] HIB 4 Dose Schedule 2001-06-20 00:00:00 Completed [facility] HIB 4 Dose Schedule 2001-06-20 00:00:00 Completed [facility] HIB 4 Dose Schedule 2001-06-20 00:00:00 Completed [facility] HIB 4 Dose Schedule 2001-06-20 00:00:00 Completed [facility] HIB 4 Dose Schedule 2001-06-20 00:00:00 Completed [facility] HIB 4 Dose Schedule 2001-06-20 00:00:00 Completed [facility] HIB 4 Dose Schedule 2001-06-20 00:00:00 Completed [facility] HIB 4 Dose Schedule 2001-06-20 00:00:00 Completed [facility] HIB 4 Dose Schedule 2001-06-20 00:00:00 Completed [facility] HIB 4 Dose Schedule 2001-06-20 00:00:00 Completed [facility] HIB 4 Dose Schedule 2001-06-20 00:00:00 Completed [facility] HIB 4 Dose Schedule 2001-06-20 00:00:00 Completed [facility] HIB 4 Dose Schedule 2001-06-20 00:00:00 Completed [facility] HIB 4 Dose Schedule 2001-06-20 00:00:00 Completed [facility] HIB 4 Dose Schedule 2001-06-20 00:00:00 Completed [facility] HIB 4 Dose Schedule 2001-06-20 00:00:00 Completed [facility] Polio (IPV/OPV) 2001-01-02 00:00:00 Completed [facility] Pneumococcal 7 Conjugate, PCV7 (Prevnar7) 2001-01-02 00:00:00 Completed [facility] DTAP 2001-01-02 00:00:00 Completed [facility] Polio (IPV/OPV) 2001-01-02 00:00:00 Completed [facility] Pneumococcal 7 Conjugate, PCV7 (Prevnar7) 2001-01-02 00:00:00 Completed [facility] DTAP 2001-01-02 00:00:00 Completed [facility] Polio (IPV/OPV) 2001-01-02 00:00:00 Completed [facility] Pneumococcal 7 Conjugate, PCV7 (Prevnar7) 2001-01-02 00:00:00 Completed [facility] DTAP 2001-01-02 00:00:00 Completed [facility] Polio (IPV/OPV) 2001-01-02 00:00:00 Completed [facility] Pneumococcal 7 Conjugate, PCV7 (Prevnar7) 2001-01-02 00:00:00 Completed [facility] DTAP 2001-01-02 00:00:00 Completed [facility] Polio (IPV/OPV) 2001-01-02 00:00:00 Completed [facility] Pneumococcal 7 Conjugate, PCV7 (Prevnar7) 2001-01-02 00:00:00 Completed [facility] DTAP 2001-01-02 00:00:00 Completed [facility] Polio (IPV/OPV) 2001-01-02 00:00:00 Completed [facility] Pneumococcal 7 Conjugate, PCV7 (Prevnar7) 2001-01-02 00:00:00 Completed [facility] DTAP 2001-01-02 00:00:00 Completed [facility] Polio (IPV/OPV) 2001-01-02 00:00:00 Completed [facility] Pneumococcal 7 Conjugate, PCV7 (Prevnar7) 2001-01-02 00:00:00 Completed [facility] DTAP 2001-01-02 00:00:00 Completed [facility] Polio (IPV/OPV) 2001-01-02 00:00:00 Completed [facility] Pneumococcal 7 Conjugate, PCV7 (Prevnar7) 2001-01-02 00:00:00 Completed [facility] DTAP 2001-01-02 00:00:00 Completed [facility] Polio (IPV/OPV) 2001-01-02 00:00:00 Completed [facility] Pneumococcal 7 Conjugate, PCV7 (Prevnar7) 2001-01-02 00:00:00 Completed [facility] DTAP 2001-01-02 00:00:00 Completed [facility] Polio (IPV/OPV) 2001-01-02 00:00:00 Completed [facility] Pneumococcal 7 Conjugate, PCV7 (Prevnar7) 2001-01-02 00:00:00 Completed [facility] DTAP 2001-01-02 00:00:00 Completed [facility] Polio (IPV/OPV) 2001-01-02 00:00:00 Completed [facility] Pneumococcal 7 Conjugate, PCV7 (Prevnar7) 2001-01-02 00:00:00 Completed [facility] DTAP 2001-01-02 00:00:00 Completed [facility] Polio (IPV/OPV) 2001-01-02 00:00:00 Completed [facility] Pneumococcal 7 Conjugate, PCV7 (Prevnar7) 2001-01-02 00:00:00 Completed [facility] DTAP 2001-01-02 00:00:00 Completed [facility] Polio (IPV/OPV) 2001-01-02 00:00:00 Completed [facility] Pneumococcal 7 Conjugate, PCV7 (Prevnar7) 2001-01-02 00:00:00 Completed [facility] DTAP 2001-01-02 00:00:00 Completed [facility] Polio (IPV/OPV) 2001-01-02 00:00:00 Completed [facility] Pneumococcal 7 Conjugate, PCV7 (Prevnar7) 2001-01-02 00:00:00 Completed [facility] DTAP 2001-01-02 00:00:00 Completed [facility] Polio (IPV/OPV) 2001-01-02 00:00:00 Completed [facility] Pneumococcal 7 Conjugate, PCV7 (Prevnar7) 2001-01-02 00:00:00 Completed [facility] DTAP 2001-01-02 00:00:00 Completed [facility] Polio (IPV/OPV) 2001-01-02 00:00:00 Completed [facility] Pneumococcal 7 Conjugate, PCV7 (Prevnar7) 2001-01-02 00:00:00 Completed [facility] DTAP 2001-01-02 00:00:00 Completed [facility] Polio (IPV/OPV) 2001-01-02 00:00:00 Completed [facility] Pneumococcal 7 Conjugate, PCV7 (Prevnar7) 2001-01-02 00:00:00 Completed [facility] DTAP 2001-01-02 00:00:00 Completed [facility] Polio (IPV/OPV) 2001-01-02 00:00:00 Completed [facility] Pneumococcal 7 Conjugate, PCV7 (Prevnar7) 2001-01-02 00:00:00 Completed [facility] DTAP 2001-01-02 00:00:00 Completed [facility] Polio (IPV/OPV) 2001-01-02 00:00:00 Completed [facility] Pneumococcal 7 Conjugate, PCV7 (Prevnar7) 2001-01-02 00:00:00 Completed [facility] DTAP 2001-01-02 00:00:00 Completed [facility] Polio (IPV/OPV) 2001-01-02 00:00:00 Completed [facility] Pneumococcal 7 Conjugate, PCV7 (Prevnar7) 2001-01-02 00:00:00 Completed [facility] DTAP 2001-01-02 00:00:00 Completed [facility] Polio (IPV/OPV) 2001-01-02 00:00:00 Completed [facility] Pneumococcal 7 Conjugate, PCV7 (Prevnar7) 2001-01-02 00:00:00 Completed [facility] DTAP 2001-01-02 00:00:00 Completed [facility] Polio (IPV/OPV) 2001-01-02 00:00:00 Completed [facility] Pneumococcal 7 Conjugate, PCV7 (Prevnar7) 2001-01-02 00:00:00 Completed [facility] DTAP 2001-01-02 00:00:00 Completed [facility] Polio (IPV/OPV) 2001-01-02 00:00:00 Completed [facility] Pneumococcal 7 Conjugate, PCV7 (Prevnar7) 2001-01-02 00:00:00 Completed [facility] DTAP 2001-01-02 00:00:00 Completed [facility] Polio (IPV/OPV) 2000 00:00:00 Completed [facility] Pneumococcal 7 Conjugate, PCV7 (Prevnar7) 2000 00:00:00 Completed [facility] DTAP 2000 00:00:00 Completed [facility] HIB 4 Dose Schedule 2000 00:00:00 Completed [facility] Polio (IPV/OPV) 2000 00:00:00 Completed [facility] Pneumococcal 7 Conjugate, PCV7 (Prevnar7) 2000 00:00:00 Completed [facility] DTAP 2000 00:00:00 Completed [facility] HIB 4 Dose Schedule 2000 00:00:00 Completed [facility] Polio (IPV/OPV) 2000 00:00:00 Completed [facility] Pneumococcal 7 Conjugate, PCV7 (Prevnar7) 2000 00:00:00 Completed [facility] DTAP 2000 00:00:00 Completed [facility] HIB 4 Dose Schedule 2000 00:00:00 Completed [facility] Polio (IPV/OPV) 2000 00:00:00 Completed [facility] Pneumococcal 7 Conjugate, PCV7 (Prevnar7) 2000 00:00:00 Completed [facility] DTAP 2000 00:00:00 Completed [facility] HIB 4 Dose Schedule 2000 00:00:00 Completed [facility] Polio (IPV/OPV) 2000 00:00:00 Completed [facility] Pneumococcal 7 Conjugate, PCV7 (Prevnar7) 2000 00:00:00 Completed [facility] DTAP 2000 00:00:00 Completed [facility] HIB 4 Dose Schedule 2000 00:00:00 Completed [facility] Polio (IPV/OPV) 2000 00:00:00 Completed [facility] Pneumococcal 7 Conjugate, PCV7 (Prevnar7) 2000 00:00:00 Completed [facility] DTAP 2000 00:00:00 Completed [facility] HIB 4 Dose Schedule 2000 00:00:00 Completed [facility] Polio (IPV/OPV) 2000 00:00:00 Completed [facility] Pneumococcal 7 Conjugate, PCV7 (Prevnar7) 2000 00:00:00 Completed [facility] DTAP 2000 00:00:00 Completed [facility] HIB 4 Dose Schedule 2000 00:00:00 Completed [facility] Polio (IPV/OPV) 2000 00:00:00 Completed [facility] Pneumococcal 7 Conjugate, PCV7 (Prevnar7) 2000 00:00:00 Completed [facility] DTAP 2000 00:00:00 Completed Formerly [facility] HIB 4 Dose Schedule 2000 00:00:00 Completed [facility]ly [facility] Polio (IPV/OPV) 2000 00:00:00 Completed [facility]ly [facility] Pneumococcal 7 Conjugate, PCV7 (Prevnar7) 2000 00:00:00 Completed [facility]ly [facility] DTAP 2000 00:00:00 Completed [facility]ly [facility] HIB 4 Dose Schedule 2000 00:00:00 Completed [facility]ly [facility] Polio (IPV/OPV) 2000 00:00:00 Completed [facility] Pneumococcal 7 Conjugate, PCV7 (Prevnar7) 2000 00:00:00 Completed [facility]ly [facility] DTAP 2000 00:00:00 Completed [facility]ly [facility] HIB 4 Dose Schedule 2000 00:00:00 Completed [facility]ly [facility] Polio (IPV/OPV) 2000 00:00:00 Completed [facility] Pneumococcal 7 Conjugate, PCV7 (Prevnar7) 2000 00:00:00 Completed [facility]ly [facility] DTAP 2000 00:00:00 Completed [facility]ly [facility] HIB 4 Dose Schedule 2000 00:00:00 Completed [facility]ly [facility] Polio (IPV/OPV) 2000 00:00:00 Completed [facility] Pneumococcal 7 Conjugate, PCV7 (Prevnar7) 2000 00:00:00 Completed [facility] DTAP 2000 00:00:00 Completed [facility]ly [facility] HIB 4 Dose Schedule 2000 00:00:00 Completed [facility] Polio (IPV/OPV) 2000 00:00:00 Completed [facility] Pneumococcal 7 Conjugate, PCV7 (Prevnar7) 2000 00:00:00 Completed [facility] DTAP 2000 00:00:00 Completed [facility] HIB 4 Dose Schedule 2000 00:00:00 Completed [facility] Polio (IPV/OPV) 2000 00:00:00 Completed [facility] Pneumococcal 7 Conjugate, PCV7 (Prevnar7) 2000 00:00:00 Completed [facility] DTAP 2000 00:00:00 Completed [facility] HIB 4 Dose Schedule 2000 00:00:00 Completed [facility] Polio (IPV/OPV) 2000 00:00:00 Completed [facility] Pneumococcal 7 Conjugate, PCV7 (Prevnar7) 2000 00:00:00 Completed [facility] DTAP 2000 00:00:00 Completed [facility] HIB 4 Dose Schedule 2000 00:00:00 Completed [facility] Polio (IPV/OPV) 2000 00:00:00 Completed [facility] Pneumococcal 7 Conjugate, PCV7 (Prevnar7) 2000 00:00:00 Completed [facility] DTAP 2000 00:00:00 Completed [facility] HIB 4 Dose Schedule 2000 00:00:00 Completed [facility] Polio (IPV/OPV) 2000 00:00:00 Completed [facility] Pneumococcal 7 Conjugate, PCV7 (Prevnar7) 2000 00:00:00 Completed [facility] DTAP 2000 00:00:00 Completed [facility] HIB 4 Dose Schedule 2000 00:00:00 Completed [facility] Polio (IPV/OPV) 2000 00:00:00 Completed [facility] Pneumococcal 7 Conjugate, PCV7 (Prevnar7) 2000 00:00:00 Completed [facility] DTAP 2000 00:00:00 Completed [facility] HIB 4 Dose Schedule 2000 00:00:00 Completed [facility] Polio (IPV/OPV) 2000 00:00:00 Completed [facility] Pneumococcal 7 Conjugate, PCV7 (Prevnar7) 2000 00:00:00 Completed [facility] DTAP 2000 00:00:00 Completed [facility] HIB 4 Dose Schedule 2000 00:00:00 Completed [facility] Polio (IPV/OPV) 2000 00:00:00 Completed [facility] Pneumococcal 7 Conjugate, PCV7 (Prevnar7) 2000 00:00:00 Completed [facility] DTAP 2000 00:00:00 Completed [facility] HIB 4 Dose Schedule 2000 00:00:00 Completed [facility] Polio (IPV/OPV) 2000 00:00:00 Completed [facility] Pneumococcal 7 Conjugate, PCV7 (Prevnar7) 2000 00:00:00 Completed [facility] DTAP 2000 00:00:00 Completed [facility] HIB 4 Dose Schedule 2000 00:00:00 Completed [facility] Polio (IPV/OPV) 2000 00:00:00 Completed [facility] Pneumococcal 7 Conjugate, PCV7 (Prevnar7) 2000 00:00:00 Completed [facility] DTAP 2000 00:00:00 Completed [facility] HIB 4 Dose Schedule 2000 00:00:00 Completed [facility] Polio (IPV/OPV) 2000 00:00:00 Completed [facility] Pneumococcal 7 Conjugate, PCV7 (Prevnar7) 2000 00:00:00 Completed [facility] DTAP 2000 00:00:00 Completed [facility] HIB 4 Dose Schedule 2000 00:00:00 Completed [facility] Hep B, Adol or Pedi Dosage 2000 00:00:00 Completed [facility] Polio (IPV/OPV) 2000 00:00:00 Completed [facility] Pneumococcal 7 Conjugate, PCV7 (Prevnar7) 2000 00:00:00 Completed [facility] DTAP 2000 00:00:00 Completed [facility] HIB 4 Dose Schedule 2000 00:00:00 Completed [facility] Hep B, Adol or Pedi Dosage 2000 00:00:00 Completed [facility] Polio (IPV/OPV) 2000 00:00:00 Completed [facility] Pneumococcal 7 Conjugate, PCV7 (Prevnar7) 2000 00:00:00 Completed [facility] DTAP 2000 00:00:00 Completed [facility] HIB 4 Dose Schedule 2000 00:00:00 Completed [facility] Hep B, Adol or Pedi Dosage 2000 00:00:00 Completed [facility] Polio (IPV/OPV) 2000 00:00:00 Completed [facility] Pneumococcal 7 Conjugate, PCV7 (Prevnar7) 2000 00:00:00 Completed [facility] DTAP 2000 00:00:00 Completed [facility] HIB 4 Dose Schedule 2000 00:00:00 Completed [facility] Hep B, Adol or Pedi Dosage 2000 00:00:00 Completed [facility] Polio (IPV/OPV) 2000 00:00:00 Completed [facility] Pneumococcal 7 Conjugate, PCV7 (Prevnar7) 2000 00:00:00 Completed [facility] DTAP 2000 00:00:00 Completed [facility] HIB 4 Dose Schedule 2000 00:00:00 Completed [facility] Hep B, Adol or Pedi Dosage 2000 00:00:00 Completed [facility] Polio (IPV/OPV) 2000 00:00:00 Completed [facility] Pneumococcal 7 Conjugate, PCV7 (Prevnar7) 2000 00:00:00 Completed [facility] DTAP 2000 00:00:00 Completed [facility] HIB 4 Dose Schedule 2000 00:00:00 Completed [facility] Hep B, Adol or Pedi Dosage 2000 00:00:00 Completed [facility] Polio (IPV/OPV) 2000 00:00:00 Completed [facility] Pneumococcal 7 Conjugate, PCV7 (Prevnar7) 2000 00:00:00 Completed [facility] DTAP 2000 00:00:00 Completed [facility] HIB 4 Dose Schedule 2000 00:00:00 Completed [facility] Hep B, Adol or Pedi Dosage 2000 00:00:00 Completed [facility] Polio (IPV/OPV) 2000 00:00:00 Completed [facility] Pneumococcal 7 Conjugate, PCV7 (Prevnar7) 2000 00:00:00 Completed [facility] DTAP 2000 00:00:00 Completed [facility] HIB 4 Dose Schedule 2000 00:00:00 Completed [facility] Hep B, Adol or Pedi Dosage 2000 00:00:00 Completed [facility] Polio (IPV/OPV) 2000 00:00:00 Completed [facility] Pneumococcal 7 Conjugate, PCV7 (Prevnar7) 2000 00:00:00 Completed [facility] DTAP 2000 00:00:00 Completed [facility] HIB 4 Dose Schedule 2000 00:00:00 Completed [facility] Hep B, Adol or Pedi Dosage 2000 00:00:00 Completed [facility] Polio (IPV/OPV) 2000 00:00:00 Completed [facility] Pneumococcal 7 Conjugate, PCV7 (Prevnar7) 2000 00:00:00 Completed [facility] DTAP 2000 00:00:00 Completed [facility] HIB 4 Dose Schedule 2000 00:00:00 Completed [facility] Hep B, Adol or Pedi Dosage 2000 00:00:00 Completed [facility] Polio (IPV/OPV) 2000 00:00:00 Completed [facility] Pneumococcal 7 Conjugate, PCV7 (Prevnar7) 2000 00:00:00 Completed [facility] DTAP 2000 00:00:00 Completed [facility] HIB 4 Dose Schedule 2000 00:00:00 Completed [facility] Hep B, Adol or Pedi Dosage 2000 00:00:00 Completed [facility] Polio (IPV/OPV) 2000 00:00:00 Completed [facility] Pneumococcal 7 Conjugate, PCV7 (Prevnar7) 2000 00:00:00 Completed [facility] DTAP 2000 00:00:00 Completed [facility] HIB 4 Dose Schedule 2000 00:00:00 Completed [facility] Hep B, Adol or Pedi Dosage 2000 00:00:00 Completed [facility] Polio (IPV/OPV) 2000 00:00:00 Completed [facility] Pneumococcal 7 Conjugate, PCV7 (Prevnar7) 2000 00:00:00 Completed [facility] DTAP 2000 00:00:00 Completed [facility] HIB 4 Dose Schedule 2000 00:00:00 Completed [facility] Hep B, Adol or Pedi Dosage 2000 00:00:00 Completed [facility] Polio (IPV/OPV) 2000 00:00:00 Completed [facility] Pneumococcal 7 Conjugate, PCV7 (Prevnar7) 2000 00:00:00 Completed [facility] DTAP 2000 00:00:00 Completed [facility] HIB 4 Dose Schedule 2000 00:00:00 Completed [facility] Hep B, Adol or Pedi Dosage 2000 00:00:00 Completed [facility] Polio (IPV/OPV) 2000 00:00:00 Completed [facility] Pneumococcal 7 Conjugate, PCV7 (Prevnar7) 2000 00:00:00 Completed [facility] DTAP 2000 00:00:00 Completed [facility] HIB 4 Dose Schedule 2000 00:00:00 Completed [facility] Hep B, Adol or Pedi Dosage 2000 00:00:00 Completed [facility] Polio (IPV/OPV) 2000 00:00:00 Completed [facility] Pneumococcal 7 Conjugate, PCV7 (Prevnar7) 2000 00:00:00 Completed [facility] DTAP 2000 00:00:00 Completed [facility] HIB 4 Dose Schedule 2000 00:00:00 Completed [facility] Hep B, Adol or Pedi Dosage 2000 00:00:00 Completed [facility] Polio (IPV/OPV) 2000 00:00:00 Completed [facility] Pneumococcal 7 Conjugate, PCV7 (Prevnar7) 2000 00:00:00 Completed [facility] DTAP 2000 00:00:00 Completed [facility] HIB 4 Dose Schedule 2000 00:00:00 Completed [facility] Hep B, Adol or Pedi Dosage 2000 00:00:00 Completed [facility] Polio (IPV/OPV) 2000 00:00:00 Completed [facility] Pneumococcal 7 Conjugate, PCV7 (Prevnar7) 2000 00:00:00 Completed [facility] DTAP 2000 00:00:00 Completed [facility] HIB 4 Dose Schedule 2000 00:00:00 Completed [facility] Hep B, Adol or Pedi Dosage 2000 00:00:00 Completed [facility] Polio (IPV/OPV) 2000 00:00:00 Completed [facility] Pneumococcal 7 Conjugate, PCV7 (Prevnar7) 2000 00:00:00 Completed [facility] DTAP 2000 00:00:00 Completed [facility] HIB 4 Dose Schedule 2000 00:00:00 Completed [facility] Hep B, Adol or Pedi Dosage 2000 00:00:00 Completed [facility] Polio (IPV/OPV) 2000 00:00:00 Completed [facility] Pneumococcal 7 Conjugate, PCV7 (Prevnar7) 2000 00:00:00 Completed [facility] DTAP 2000 00:00:00 Completed [facility] HIB 4 Dose Schedule 2000 00:00:00 Completed [facility] Hep B, Adol or Pedi Dosage 2000 00:00:00 Completed [facility] Polio (IPV/OPV) 2000 00:00:00 Completed [facility] Pneumococcal 7 Conjugate, PCV7 (Prevnar7) 2000 00:00:00 Completed [facility] DTAP 2000 00:00:00 Completed [facility] HIB 4 Dose Schedule 2000 00:00:00 Completed [facility] Hep B, Adol or Pedi Dosage 2000 00:00:00 Completed [facility] Polio (IPV/OPV) 2000 00:00:00 Completed [facility] Pneumococcal 7 Conjugate, PCV7 (Prevnar7) 2000 00:00:00 Completed [facility] DTAP 2000 00:00:00 Completed [facility] HIB 4 Dose Schedule 2000 00:00:00 Completed [facility] Hep B, Adol or Pedi Dosage 2000 00:00:00 Completed [facility] Polio (IPV/OPV) 2000 00:00:00 Completed [facility] Pneumococcal 7 Conjugate, PCV7 (Prevnar7) 2000 00:00:00 Completed [facility] DTAP 2000 00:00:00 Completed [facility] HIB 4 Dose Schedule 2000 00:00:00 Completed [facility] Hep B, Adol or Pedi Dosage 2000 00:00:00 Completed [facility] Polio (IPV/OPV) 2000 00:00:00 Completed [facility] Pneumococcal 7 Conjugate, PCV7 (Prevnar7) 2000 00:00:00 Completed [facility] DTAP 2000 00:00:00 Completed [facility] HIB 4 Dose Schedule 2000 00:00:00 Completed [facility] Hep B, Adol or Pedi Dosage 2000 00:00:00 Completed [facility] Hep B, Adol or Pedi Dosage 2000 00:00:00 Completed [facility] Hep B, Adol or Pedi Dosage 2000 00:00:00 Completed [facility] Hep B, Adol or Pedi Dosage 2000 00:00:00 Completed [facility] Hep B, Adol or Pedi Dosage 2000 00:00:00 Completed [facility] Hep B, Adol or Pedi Dosage 2000 00:00:00 Completed [facility] Hep B, Adol or Pedi Dosage 2000 00:00:00 Completed [facility] Hep B, Adol or Pedi Dosage 2000 00:00:00 Completed [facility] Hep B, Adol or Pedi Dosage 2000 00:00:00 Completed [facility] Hep B, Adol or Pedi Dosage 2000 00:00:00 Completed [facility] Hep B, Adol or Pedi Dosage 2000 00:00:00 Completed [facility] Hep B, Adol or Pedi Dosage 2000 00:00:00 Completed [facility] Hep B, Adol or Pedi Dosage 2000 00:00:00 Completed [facility] Hep B, Adol or Pedi Dosage 2000 00:00:00 Completed [facility] Hep B, Adol or Pedi Dosage 2000 00:00:00 Completed [facility] Hep B, Adol or Pedi Dosage 2000 00:00:00 Completed [facility] Hep B, Adol or Pedi Dosage 2000 00:00:00 Completed [facility] Hep B, Adol or Pedi Dosage 2000 00:00:00 Completed [facility] Hep B, Adol or Pedi Dosage 2000 00:00:00 Completed [facility] Hep B, Adol or Pedi Dosage 2000 00:00:00 Completed [facility] Hep B, Adol or Pedi Dosage 2000 00:00:00 Completed [facility] Hep B, Adol or Pedi Dosage 2000 00:00:00 Completed [facility] Hep B, Adol or Pedi Dosage 2000 00:00:00 Completed [facility] DTAP Unknown Completed [facility] DTAP Unknown Completed [facility] DTAP Unknown Completed [facility] DTAP Unknown Completed [facility] DTAP Unknown Completed [facility] DTAP Unknown Completed [facility] HIB 4 Dose Schedule Unknown Completed [facility] HIB 4 Dose Schedule Unknown Completed [facility] HIB 4 Dose Schedule Unknown Completed [facility] HIB 4 Dose Schedule Unknown Completed [facility] HEPATITIS A Unknown Completed [facility] HEPATITIS A Unknown Completed [facility] Hep B, Adol or Pedi Dosage Unknown Completed [facility] Hep B, Adol or Pedi Dosage Unknown Completed [facility] Hep B, Adol or Pedi Dosage Unknown Completed [facility] Hep B, Adol or Pedi Dosage Unknown Completed [facility] HPV Unknown Completed [facility] Meningococcal Polysaccharide (groups A, C, Y and W-135) conjugate vaccine (MCV4P) Unknown Completed [facility] MMR Unknown Completed [facility] MMR Unknown Completed [facility] Polio (IPV/OPV) Unknown Completed [facility] Polio (IPV/OPV) Unknown Completed [facility] Polio (IPV/OPV) Unknown Completed [facility] Polio (IPV/OPV) Unknown Completed [facility] TDAP Unknown Completed [facility] Varicella (varivax)(chicken pox) Unknown Completed [facility] Varicella (varivax)(chicken pox) Unknown Completed [facility] Pneumococcal 7 Conjugate, PCV7 (Prevnar7) Unknown Completed [facility] Pneumococcal 7 Conjugate, PCV7 (Prevnar7) Unknown Completed [facility] Pneumococcal 7 Conjugate, PCV7 (Prevnar7) Unknown Completed [facility] Pneumococcal 7 Conjugate, PCV7 (Prevnar7) Unknown Completed [facility] DTAP Unknown Completed [facility] DTAP Unknown Completed [facility] DTAP Unknown Completed [facility] DTAP Unknown Completed [facility] DTAP Unknown Completed [facility] DTAP Unknown Completed [facility] HIB 4 Dose Schedule Unknown Completed [facility] HIB 4 Dose Schedule Unknown Completed [facility] HIB 4 Dose Schedule Unknown Completed [facility] HIB 4 Dose Schedule Unknown Completed [facility] HEPATITIS A Unknown [facility] Hep B, Adol or Pedi Dosage Unknown Completed [facility] Hep B, Adol or Pedi Dosage Unknown Completed [facility] Hep B, Adol or Pedi Dosage Unknown Completed [facility] Hep B, Adol or Pedi Dosage Unknown Completed [facility] HPV Unknown Completed [facility] Meningococcal Polysaccharide (groups A, C, Y and W-135) conjugate vaccine (MCV4P) Unknown Completed [facility] MMR Unknown Completed [facility] MMR Unknown Completed [facility] Polio (IPV/OPV) Unknown Completed [facility] Polio (IPV/OPV) Unknown Completed [facility] Polio (IPV/OPV) Unknown Completed [facility] Polio (IPV/OPV) Unknown Completed [facility] TDAP Unknown Completed [facility] Varicella (varivax)(chicken pox) Unknown Completed [facility] Varicella (varivax)(chicken pox) Unknown Completed [facility] Pneumococcal 7 Conjugate, PCV7 (Prevnar7) Unknown Completed [facility] Pneumococcal 7 Conjugate, PCV7 (Prevnar7) Unknown Completed [facility] Pneumococcal 7 Conjugate, PCV7 (Prevnar7) Unknown Completed [facility] Pneumococcal 7 Conjugate, PCV7 (Prevnar7) Unknown Completed [facility] DTAP Unknown Completed [facility] DTAP Unknown Completed [facility] DTAP Unknown Completed [facility] DTAP Unknown Completed [facility] DTAP Unknown Completed [facility] DTAP Unknown Completed [facility] HIB 4 Dose Schedule Unknown Completed [facility] HIB 4 Dose Schedule Unknown Completed [facility] HIB 4 Dose Schedule Unknown Completed [facility] HIB 4 Dose Schedule Unknown Completed [facility] HEPATITIS A Unknown Completed [facility] HEPATITIS A Unknown Completed [facility] Hep B, Adol or Pedi Dosage Unknown Completed [facility] Hep B, Adol or Pedi Dosage Unknown Completed [facility] Hep B, Adol or Pedi Dosage Unknown Completed [facility] Hep B, Adol or Pedi Dosage Unknown Completed [facility] HPV Unknown Completed Formerly [facility] Meningococcal Polysaccharide (groups A, C, Y and W-135) conjugate vaccine (MCV4P) Unknown Completed [facility] MMR Unknown Completed [facility] MMR Unknown Completed [facility] Polio (IPV/OPV) Unknown Completed [facility] Polio (IPV/OPV) Unknown Completed [facility] Polio (IPV/OPV) Unknown Completed [facility] Polio (IPV/OPV) Unknown Completed [facility] TDAP Unknown Completed [facility] Varicella (varivax)(chicken pox) Unknown Completed [facility] Varicella (varivax)(chicken pox) Unknown Completed [facility] Pneumococcal 7 Conjugate, PCV7 (Prevnar7) Unknown Completed [facility] Pneumococcal 7 Conjugate, PCV7 (Prevnar7) Unknown Completed [facility] Pneumococcal 7 Conjugate, PCV7 (Prevnar7) Unknown Completed [facility] Pneumococcal 7 Conjugate, PCV7 (Prevnar7) Unknown Completed [facility] TDAP Unknown Completed [facility] Vital Signs Vital Name Observation Time Observation Value Comments S ource Systolic blood pressure 2023-12-14 20:00:00 140 mm[Hg] pt upset [facility] Diastolic blood pressure 2023-12-14 20:00:00 92 mm[Hg] pt upset [facility] Heart rate 2023-12-14 19:26:00 90 /min [facility] Body temperature 2023-12-14 19:26:00 36.67 Sailaaj [facility] Respiratory rate 2023-12-14 19:26:00 17 /min [facility] Body height 2023-12-14 19:26:00 165.1 cm [facility] Body weight 2023-12-14 19:26:00 132.541 kg [facility] BMI 2023-12-14 19:26:00 48.62 kg/m2 [facility] Systolic blood pressure 2022-05-25 19:07:00 140 mm[Hg] manual [facility] Diastolic blood pressure 2022-05-25 19:07:00 78 mm[Hg] manual [facility] Heart rate 2022-05-25 19:01:00 100 /min [facility] Body temperature 2022-05-25 19:01:00 36.22 Sailaja [facility] Respiratory rate 2022-05-25 19:01:00 16 /min [facility] Body height 2022-05-25 19:01:00 165.1 cm [facility] Body weight 2022-05-25 19:01:00 137.621 kg [facility] BMI 2022-05-25 19:01:00 50.49 kg/m2 [facility] Systolic blood pressure 2022-05-03 15:17:00 151 mm[Hg] [facility] Diastolic blood pressure 2022-05-03 15:17:00 91 mm[Hg] [facility] Heart rate 2022-05-03 15:17:00 89 /min [facility] Body temperature 2022-05-03 15:17:00 35.5 Sailaja [facility] Respiratory rate 2022-05-03 15:17:00 18 /min [facility] Body height 2022-05-03 15:17:00 165.1 cm [facility] Body weight 2022-05-03 15:17:00 135.172 kg [facility] BMI 2022-05-03 15:17:00 49.59 kg/m2 [facility] Systolic blood pressure 2022-04-19 15:32:00 152 mm[Hg] [facility] Diastolic blood pressure 2022-04-19 15:32:00 94 mm[Hg] [facility] Heart rate 2022-04-19 15:16:00 82 /min [facility] Body temperature 2022-04-19 15:16:00 35.89 Sailaja [facility] Respiratory rate 2022-04-19 15:16:00 18 /min [facility] Body height 2022-04-19 15:16:00 165.1 cm [facility] Body weight 2022-04-19 15:16:00 141.522 kg [facility] BMI 2022-04-19 15:16:00 51.92 kg/m2 [facility] Systolic blood pressure 2022-04-13 12:45:00 97 mm[Hg] [facility] Diastolic blood pressure 2022-04-13 12:45:00 51 mm[Hg] [facility] Heart rate 2022-04-13 12:45:00 88 /min [facility] Body temperature 2022-04-13 12:45:00 35.83 Sailaja [facility] Respiratory rate 2022-04-13 12:45:00 18 /min [facility] Oxygen saturation in Arterial blood by Pulse oximetry 2022-04-13 12:45:00 96 /min [facility] Body height 2022-04-10 12:26:00 165.1 cm [facility] Body weight 2022-04-10 12:26:00 146.058 kg [facility] BMI 2022-04-10 12:26:00 53.58 kg/m2 [facility] Systolic blood pressure 2022-04-12 04:30:00 136 mm[Hg] [facility] Diastolic blood pressure 2022-04-12 04:30:00 64 mm[Hg] [facility] Heart rate 2022-04-12 04:30:00 103 /min [facility] Respiratory rate 2022-04-12 04:30:00 18 /min [facility] Oxygen saturation in Arterial blood by Pulse oximetry 2022-04-12 04:30:00 96 /min [facility] Body temperature 2022-04-12 04:00:00 37.44 Sailaja [facility] Body height 2022-04-10 12:26:00 165.1 cm [facility] Body weight 2022-04-10 12:26:00 146.058 kg [facility] BMI 2022-04-10 12:26:00 53.58 kg/m2 [facility] Systolic blood pressure 2022-04-09 13:37:00 154 mm[Hg] [facility] Diastolic blood pressure 2022-04-09 13:37:00 88 mm[Hg] [facility] Heart rate 2022-04-09 13:12:00 86 /min [facility] Body temperature 2022-04-09 13:12:00 35.44 Sailaja [facility] Respiratory rate 2022-04-09 13:12:00 18 /min [facility] Body height 2022-04-09 13:12:00 165.1 cm [facility] Body weight 2022-04-09 13:12:00 146.058 kg [facility] BMI 2022-04-09 13:12:00 53.58 kg/m2 [facility] Systolic blood pressure 2022-04-08 06:45:00 131 mm[Hg] [facility] Diastolic blood pressure 2022-04-08 06:45:00 69 mm[Hg] [facility] Heart rate 2022-04-08 06:45:00 86 /[facility] Oxygen saturation in Arterial blood by Pulse oximetry 2022-04-08 06:45:00 100 /min [facility] Body temperature 2022-04-08 05:30:00 36.78 Sailaja [facility] Respiratory rate 2022-04-08 05:30:00 17 /min [facility] Systolic blood pressure 2022-04-02 18:31:00 141 mm[Hg] [facility] Diastolic blood pressure 2022-04-02 18:31:00 98 mm[Hg] [facility] Heart rate 2022-04-02 14:56:00 103 /min [facility] Body temperature 2022-04-02 14:56:00 35.5 Sailaja [facility] Respiratory rate 2022-04-02 14:56:00 18 /min [facility] Body height 2022-04-02 14:56:00 165.1 cm [facility] Body weight 2022-04-02 14:56:00 144.244 kg [facility] BMI 2022-04-02 14:56:00 52.92 kg/m2 [facility] Systolic blood pressure 2022-03-29 19:59:00 140 mm[Hg] [facility] Diastolic blood pressure 2022-03-29 19:59:00 90 mm[Hg] [facility] Heart rate 2022-03-29 19:53:00 102 /min [facility] Body temperature 2022-03-29 19:53:00 35.67 Sailaja [facility] Respiratory rate 2022-03-29 19:53:00 18 /min [facility] Body height 2022-03-29 19:53:00 165.1 cm [facility] Body weight 2022-03-29 19:53:00 142.157 kg [facility] BMI 2022-03-29 19:53:00 52.15 kg/m2 [facility] Systolic blood pressure 2022-03-16 17:20:00 125 mm[Hg] [facility] Diastolic blood pressure 2022-03-16 17:20:00 69 mm[Hg] [facility] Heart rate 2022-03-16 17:20:00 92 /min [facility] Oxygen saturation in Arterial blood by Pulse oximetry 2022-03-16 17:20:00 99 /min [facility] Body temperature 2022-03-16 17:00:00 36.78 Sailaja [facility] Respiratory rate 2022-03-16 17:00:00 18 /min [facility] Body height 2022-03-16 17:00:00 165.1 cm [facility] Body weight 2022-03-16 17:00:00 136 kg [facility] BMI 2022-03-16 17:00:00 49.89 kg/m2 [facility] Systolic blood pressure 2022-03-16 15:21:00 138 mm[Hg] [facility] Diastolic blood pressure 2022-03-16 15:21:00 88 mm[Hg] [facility] Heart rate 2022-03-16 15:20:00 88 /min [facility] Body temperature 2022-03-16 15:20:00 36.33 Sailaja [facility] Respiratory rate 2022-03-16 15:20:00 18 /min [facility] Body height 2022-03-16 15:20:00 165.1 cm [facility] Body weight 2022-03-16 15:20:00 136.986 kg [facility] BMI 2022-03-16 15:20:00 50.26 kg/m2 [facility] Systolic blood pressure 2022-03-14 15:45:00 129 mm[Hg] [facility] Diastolic blood pressure 2022-03-14 15:45:00 70 mm[Hg] [facility] Heart rate 2022-03-14 15:45:00 100 /min [facility] Oxygen saturation in Arterial blood by Pulse oximetry 2022-03-14 15:45:00 98 /min [facility] Body temperature 2022-03-14 15:27:00 36.83 Sailaja [facility] Respiratory rate 2022-03-14 15:27:00 18 /min [facility] Body height 2022-03-14 15:27:00 165.1 cm [facility] Body weight 2022-03-14 15:27:00 137.258 kg [facility] BMI 2022-03-14 15:27:00 50.36 kg/m2 [facility] Systolic blood pressure 2022-03-13 14:00:00 117 mm[Hg] [facility] Diastolic blood pressure 2022-03-13 14:00:00 70 mm[Hg] [facility] Heart rate 2022-03-13 14:00:00 102 /min [facility] Oxygen saturation in Arterial blood by Pulse oximetry 2022-03-13 14:00:00 99 /min [facility] Respiratory rate 2022-03-13 12:25:00 18 /min [facility] Body temperature 2022-03-13 02:18:00 36.28 Sailaja [facility] Systolic blood pressure 2022-03-11 14:55:00 135 mm[Hg] [facility] Diastolic blood pressure 2022-03-11 14:55:00 88 mm[Hg] [facility] Heart rate 2022-03-11 14:55:00 101 /min Un[facility] Body temperature 2022-03-11 14:55:00 36.39 Sailaja [facility] Respiratory rate 2022-03-11 14:55:00 18 /min [facility] Body height 2022-03-11 14:55:00 165.1 cm [facility] Body weight 2022-03-11 14:55:00 135.898 kg [facility] BMI 2022-03-11 14:55:00 49.86 kg/m2 [facility] Systolic blood pressure 2022-03-08 20:43:00 119 mm[Hg] [facility] Diastolic blood pressure 2022-03-08 20:43:00 76 mm[Hg] [facility] Heart rate 2022-03-08 20:43:00 107 /min [facility] Body temperature 2022-03-08 20:30:00 35.72 Sailaja [facility] Body height 2022-03-08 20:30:00 165.1 cm [facility] Body weight 2022-03-08 20:30:00 136.487 kg [facility] BMI 2022-03-08 20:30:00 50.07 kg/m2 [facility] Systolic blood pressure 2022-02-22 16:13:00 156 mm[Hg] [facility] Diastolic blood pressure 2022-02-22 16:13:00 100 mm[Hg] [facility] Heart rate 2022-02-22 16:02:00 118 /min [facility] Body temperature 2022-02-22 16:02:00 35.83 Sailaja [facility] Respiratory rate 2022-02-22 16:02:00 18 /min [facility] Body height 2022-02-22 16:02:00 165.1 cm [facility] Body weight 2022-02-22 16:02:00 133.312 kg [facility] BMI 2022-02-22 16:02:00 48.91 kg/m2 [facility] Systolic blood pressure 2022-02-07 07:00:00 131 mm[Hg] [facility] Diastolic blood pressure 2022-02-07 07:00:00 70 mm[Hg] [facility] Heart rate 2022-02-07 07:00:00 97 /min [facility] Oxygen saturation in Arterial blood by Pulse oximetry 2022-02-07 07:00:00 99 /min [facility] Body temperature 2022-02-07 05:47:00 36.72 Sailaja [facility] Respiratory rate 2022-02-07 05:47:00 20 /min [facility] Body weight 2022-02-07 05:47:00 127.461 kg [facility] BMI 2022-02-07 05:47:00 46.76 kg/m2 [facility] Systolic blood pressure 2022-01-22 14:34:00 141 mm[Hg] [facility] Diastolic blood pressure 2022-01-22 14:34:00 90 mm[Hg] [facility] Heart rate 2022-01-22 14:34:00 109 /min [facility] Body temperature 2022-01-22 14:34:00 35.72 Sailaja [facility] Body height 2022-01-22 14:34:00 165.1 cm [facility] Body weight 2022-01-22 14:34:00 127.506 kg [facility] BMI 2022-01-22 14:34:00 46.78 kg/m2 [facility] Procedures Procedure Date / Time Performed Performing Clinician Source POCT TEST 2023-12-14 19:30:00 Manas Smith [facility] POCT TEST 2023-12-14 19:29:00 Manas Smith kortney Snyder [facility] LACTATE DEHYDROGENASE 2022-05-25 19:30:00 Ivan [facility] URIC ACID 2022-05-25 19:30:00 Ivan [facility] COMP. METABOLIC PANEL (29274) 2022-05-25 19:30:00 Ivan [facility] CBC WITH DIFF 2022-05-25 19:30[facility]22[facility]14 [facility] 2022-04-13 10:16:00 Nicole Man [facility] CBC WITH DIFF 2022-04-12 09:39:00 Zackary [facility] CBC WITH DIFF 2022-04-12 09:39:00 Zackary [facility] VENOUS CORD GAS 2022-04-12 05:25:00 Mary Barton [facility] VENOUS CORD GAS 2022-04-12 05:25:00 Mary Barton [facility] SECTION 2022-04-12 04:40:00 SrinathCorryy U [facility] SECTION 2022-04-12 04:40:00 SrinathCorry thomasy U [facility] CENTRAL NEURAXIAL BLOCK 2022-04-11 15:05:56 Sandy Lima [facility] HEPATITIS B SURFACE ANTIGEN 2022-04-10 17:12:00 Mary Barton [facility] GALV ONLY - SYPHILIS IGG/IGM 2022-04-10 17:12:00 Mary Barton [facility] HEPATITIS B SURFACE ANTIGEN 2022-04-10 17:12:00 Mary Barton [facility] GALV ONLY - SYPHILIS IGG/IGM 2022-04-10 17:12:00 Mary Barton [facility] HB ABO GROUPING 2022-04-10 16:39:00 Mary Barton [facility] RHO (D) IMMUNE GLOBULIN 2022-04-10 16:39:00 [facility] HB ABO GROUPING 2022-04-10 16:39:00 Mary Barton [facility] RHO (D) IMMUNE GLOBULIN 2022-04-10 16:39:00 [facility] COVID-19 (ID NOW RAPID TESTING) 2022-04-10 12:33:00 [facility] 2022-04-10 12:33:00 [facility] (ID NOW RAPID TESTING) 2022-04-10 12:33:00 [facility] INTERPRETATION 2022-04-10 12:33:00 John Chadwick [facility] URINALYSIS 2022-04-08 06:11:00 Jennifer Dyer [facility] NON-STRESS TEST 2022-04-02 18:30:18 Dundee [facility] POCT URINALYSIS GLUCOSE & PROTEIN 2022-04-02 15:01:00 [facility] 2022-03-29 21:49:31 [facility] NON-STRESS TEST 2022-03-16 16:44:08 Rosalba Dinh [facility] POCT URINALYSIS GLUCOSE & PROTEIN 2022-03-16 15:25:00 Tami Dinh [facility] CONSENT/REFUSAL FOR DIAGNOSIS AND TREATMENT 2022-03-16 05:01:00 Doctor Unassigned, [place] [facility] URINALYSIS 2022-03-13 02:55:00 Puja [facility] CONSENT/REFUSAL FOR DIAGNOSIS AND TREATMENT 2022-03-13 01:55:34 Doctor Unassigned, [place] [facility] NON-STRESS TEST 2022-03-11 16:28:18 Kike Mcgraw [facility] NON-STRESS TEST 2022-03-10 15:38:43 Yulia Love [facility] SECOND AND THIRD TRIMESTER ULTRASOUND 2022-03-08 16:50:00 Ivan Yulia [facility] GLUCOSE 1 HOUR POST PRANDIAL 2022-02-22 17:15:00 Ivan [facility] HEPATIC FUNCTION PANEL (88036) (ALB,T.PRO,BILI T,BU/BC,ALT,AST,ALK PHOS) 2022-02-22 17:15:00 Ivan [facility] BASIC METABOLIC PANEL (NA, K, CL, CO2, GLUCOSE, BUN, CREATININE, CA) 2022-02-22 17:15:00 Ivan Yulia [facility] CBC WITH DIFF 2022-02-22 17:15:00 Yulia Love [facility] HIV 1/2 AG-AB WITH REFLEX 2022-02-22 17:15:00 Sandy Love [facility] TDAP VACCINE, >11 YRS, IM 2022-02-22 16:31:13 Sandy Love [facility] US LOWER EXTREMITY VEIN WITH COMPRESSION LEFT (ONLY FOR RULE OUT DVT) 2022-02-07 09:43:38 Jennifer Dyer [facility] CONSENT/REFUSAL FOR DIAGNOSIS AND TREATMENT 2022-02-07 05:43:44 Doctor Unassigned, [place] [facility] CONSENT/REFUSAL FOR DIAGNOSIS AND TREATMENT 2022-01-03 05:01:00 Doctor Unassigned, [place] [facility] EMERGENCY SERVICES AGREEMENTS AND AUTHORIZATIONS 2022-01-03 05:01:00 Doctor Unassigned, [place] [facility] Encounters Start Date/Time End Date/Time Encounter Type Admission Type Attending Clinicians Care Facility Care Department Encounter ID Source 2022-06-17 13:37:59 Outpatient CHW CHW [id number] [facility] 2022-01-03 15:21:29 Outpatient P [facility] [id number] [facility] 2023-12-14 13:30:00 2023-12-14 13:45:00 Nurse Visit Visit, [facility] Nurse Lien Stratton [facility] CLEAN UP HELPER [facility]ERNAL [facility]ILD [facility] 1.840.114 350.1.13.10 4.2.7.2.686 [id number] [facility] 2023-12-14 13:30:00 2023-12-14 13:30:00 Outpatient LIEN IYER [facility] [id number] [facility] 2022-05-25 13:30:00 2022-05-25 14:31:57 Outpatient R [facility] [id number] [facility] 2022-05-25 13:30:00 2022-05-25 14:31:57 Routine Visit [facility] 1.0.114 350.1.13.10 4.2.7.2.686 [id number] [facility] 2022-05-03 10:00:00 2022-05-03 10:54:23 Outpatient R IV[facility] [id number] [facility] 2022-05-03 10:00:00 2022-05-03 10:54:23 Routine Visit [facility] 1.0.114 350.1.13.10 4.2.7.2.686 [id number] [facility] 2022-04-19 10:00:00 2022-04-19 10:46:19 [facility] 1.0.114 350.1.13.10 4.2.7.2.686 [id number] [facility] 2022-04-19 10:00:00 2022-04-19 10:00:00 Outpatient R IVAN [facility] [id number] [facility] 2022-04-10 06:49:00 2022-04-13 16:36:00 Hospital Encounter John Chadwick Mae [facility] 1..114 350.1.13.10 4.2.7.2.686 [id number] [facility] 2022-04-11 09:44:00 2022-04-12 01:29:00 Anesthesia Event Kahlil Lima Brita M [facility] 1.20.114 350.1.13.10 4.2.7.2.686 [id number] [facility] 2022-04-11 23:00:00 2022-04-12 00:45:[facility] 350.1.13.10 4.2.7.2.686 [id number] [facility] 2022-04-09 08:15:00 2022-04-09 09:01:26 Outpatient R OUMOU FREEMAN [facility] [id number] [facility] 2022-04-09 08:15:00 2022-04-09 09:01:26 Outpatient R OUMOU FREEMAN [facility] [id number] [facility] 2022-04-09 08:15:00 2022-04-09 09:01:26 Routine Visit Yulia Love [facility] 1..114 350.1.13.10 4.2.7.2.686 [id number] [facility] 2022-04-07 23:31:00 2022-04-08 02:23:[address] [facility] [id number] [facility] 2022-04-07 23:31:00 2022-04-08 02:23:00 Hospital Encounter [facility] 1..114 350.1.13.10 4.2.7.2.686 [id number] [facility] 2022-04-05 11:00:00 2022-04-05 11:00:00 Outpatient P [facility] [id number] [facility] 2022-04-02 09:30:00 2022-04-02 10:42:38 Outpatient R IVAN [facility] [id number] [facility] 2022-04-02 09:30:00 2022-04-02 10:42:38 Routine Visit 2, [facility] Nst Ultrasound [facility] 1.2840.114 350.1.13.10 4.2.7.2.686 [id number] [facility] 2022-04-02 09:45:00 2022-04-02 10:42:33 Routine Visit [facility] 1.20.114 350.1.13.10 4.2.7.2.686 [id number] [facility] 2022-04-01 10:30:00 2022-04-01 10:51:29 Station Manager Visit 5, [facility] Room [facility] 1.2840.114 350.1.13.10 4.2.7.2.686 [id number] [facility] 2022-04-01 10:30:00 2022-04-01 10:30:00 Outpatient P SRINATH [facility] [id number] [facility] 2022-03-29 14:15:00 2022-03-29 15:43:53 Outpatient R IVAN [facility] [id number] [facility] 2022-03-29 14:15:00 2022-03-29 15:43:53 Routine Visit [facility] 1.2840.114 350.1.13.10 4.2.7.2.686 [id number] [facility] 2022-03-23 14:30:00 2022-03-23 14:30:00 Outpatient R IVANYULIA [facility] [id number] [facility] 2022-03-19 14:30:00 2022-03-19 14:30:00 Outpatient R [facility] [id number] [facility] 2022-03-16 11:39:00 2022-03-16 12:28:00 [facility] [id number] [facility] 2022-03-16 11:39:00 2022-03-16 12:28:00 Hospital Encounter travis Julia James [facility] 1..840.114 350.1.13.10 4.2.7.2.686 [id number] [facility] 2022-03-16 10:30:00 2022-03-16 11:35:51 [facility] 1..840.114 350.1.13.10 4.2.7.2.686 [id number] [facility] 2022-03-16 10:15:00 2022-03-16 11:35:21 Outpatient R TAMI DINH EMILY [facility] [id number] [facility] 2022-03-14 10:18:00 2022-03-14 11:52:00 [facility] [id number] [facility] 2022-03-14 10:18:00 2022-03-14 11:52:00 Hospital Encounter [facility] 1.2.840.114 350.1.13.10 4.2.7.2.686 [id number] [facility] 2022-03-12 20:58:00 2022-03-13 09:37:00 Outpatient X MAE RESENDIZ [facility] [id number] [facility] 2022-03-12 20:58:00 2022-03-13 09:37:00 Hospital Encounter Mae Resendiz [facility] 1.2.840.114 350.1.13.10 4.2.7.2.686 [id number] [facility] 2022-03-11 10:00:00 2022-03-11 10:54:06 [facility] [place] 1.2.840.114 350.1.13.10 4.2.7.2.686 [id number] 113 [id number] [facility] 2022-03-11 10:00:00 2022-03-11 10:54:06 Outpatient R IVAN [facility] [id number] [facility] 2022-03-08 15:30:00 2022-03-08 16:08:05 Outpatient R [facility]AN [facility] [id number] [facility] 2022-03-08 15:30:00 2022-03-08 16:08:05 Routine Visit [facility] 1.2.840.114 350.1.13.10 4.2.7.2.686 [id number] 113 [id number] [facility] 2022-03-08 11:00:00 2022-03-08 12:05:00 Station Manager Visit 3[facility] 1.2.840.114 350.1.13.10 4.2.7.2.686 [id number] [facility] 2022-03-08 11:00:00 2022-03-08 11:00:00 Outpatient P [facility] [id number] [facility] 2022-02-22 11:00:00 2022-02-22 12:20:42 Outpatient R YULIA LOVE [facility] [id number] [facility] 2022-02-22 11:00:00 2022-02-22 12:20:42 Routine Visit Ivan [facility] 1.2.840.114 350.1.13.10 4.2.7.2.686 [id number] 113 [id number] [facility] 2022-02-08 11:00:00 2022-02-08 11:52:26 Station Manager Visit 5, [facility] Room [facility] 1.20.114 350.1.13.10 4.2.7.2.686 [id number] [facility] 2022-02-08 11:00:00 2022-02-08 11:00:00 Outpatient P [facility] [id number] [facility] 2022-02-08 11:00:00 2022-02-08 11:00:00 Outpatient P RONAK HERR [facility] [id number] [facility] 2022-02-07 00:59:00 2022-02-07 06:33:00 Outpatient P GLADYS ROMERO [facility] [id number] [facility] 2022-02-07 00:59:00 2022-02-07 06:33:00 Hospital Encounter Gladys Romero [facility] 1.20.114 350.1.13.10 4.2.7.2.686 [id number] 140 [id number] [facility] 2022-02-07 00:00:00 2022-02-07 00:00:00 Nurse Triage Hailey Lozano [facility] 1.2.840.114 350.1.13.10 4.2.7.2.686 [id number] [facility] 2022-01-22 09:30:00 2022-01-22 09:54:42 Outpatient R RIC CAMPOVERDE SHANNON [facility] [id number] [facility] 2022-01-22 09:30:00 2022-01-22 09:54:42 Office Visit Fellow, [facility] 1..114 350.1.13.10 4.2.7.2.686 [id number] 113 [id number] [facility] 2022-01-11 13:15:00 2022-01-11 13:30:00 Station Manager Visit Lab, [facility] 1..114 350.1.13.10 4.2.7.2.686 [id number] 113 [id number] [facility] 2022-01-11 11:00:00 2022-01-11 12:13:31 Station Manager Visit 2, [facility] Stephy [facility] 1..114 350.1.13.10 4.2.7.2.686 [id number] [facility] 2022-01-11 11:00:00 2022-01-11 11:00:00 Outpatient P [facility] [id number] [facility] 2022-01-11 11:00:00 2022-01-11 11:00:00 Outpatient P RONAK HERR [facility] [id number] [facility] 2022-01-11 11:00:00 2022-01-11 11:00:00 Outpatient P HERR RONAK [facility] [id number] [facility] 2022-01-11 00:00:00 2022-01-11 00:00:00 [facility] 1..114 350.1.13.10 4.2.7.2.686 [id number] [facility] 2022-01-08 10:30:00 2022-01-08 11:46:16 Office Visit Fellow, [facility] CamdenAravind monroy [facility] 1..114 350.1.13.10 4.2.7.2.686 [id number] 113 [id number] [facility] 2022-01-08 10:30:00 2022-01-08 11:46:16 Outpatient P ARAVIND FISHER [facility] [id number] [facility] 2022-01-08 10:30:00 2022-01-08 11:46:16 Outpatient P ROSETTE FISHERAN [facility] [id number] [facility] 2022-01-08 10:30:00 2022-01-08 11:46:16 Office Visit Fellow, [facility] Aravind Fisher [facility] 1..114 350.1.13.10 4.2.7.2.686 [id number] 113 [id number] [facility] 2022-01-08 10:30:00 2022-01-08 10:30:00 Outpatient P ARAVIND FISHER [facility] [id number] [facility] 2022-01-03 13:38:00 2022-01-03 15:21:00 Outpatient P KOREY YO [facility] [id number] [facility] 2022-01-03 13:38:00 2022-01-03 15:21:00 Hospital Encounter Korey Yo [facility] 1..840.114 350.1.13.10 4.2.7.2.686 [id number] [facility] 2022-01-03 12:42:00 2022-01-03 13:32:00 Emergency X YAMILEX [facility] [id number] [facility] 2022-01-03 12:42:00 2022-01-03 13:32:00 Emergency Vela, Yamilex [facility] 1.2840.114 350.1.13.10 4.2.7.2.686 [id number] [facility] 2022-01-03 00:00:00 2022-01-03 00:00:00 Nurse Triage Pastor Annamarie Collier [facility] 1.2.840.114 350.1.13.10 4.2.7.2.686 [id number] [facility] 2022-01-01 00:00:00 2022-01-01 00:00:00 Telephone [facility] 1.20.114 350.1.13.10 4.2.7.2.686 [id number] 113 [id number] [facility] 2021-12-25 11:00:00 2021-12-25 11:15:00 Routine Visit [facility] 1.0.114 350.1.13.10 4.2.7.2.686 [id number] 113 [id number] [facility] 2021-12-25 11:00:00 2021-12-25 11:00:00 Outpatient R IVAN YULIA [facility] [id number] [facility] 2021-12-11 14:00:00 2021-12-11 15:15:00 Station Manager Visit 5, [facility] Stephy Yo [facility] 1.2.114 350.1.13.10 4.2.7.2.686 [id number] [facility] 2021-12-11 14:00:00 2021-12-11 14:00:00 Outpatient P SRINATH KOREY [facility] [id number] [facility] 2021-11-30 00:00:00 2021-11-30 00:00:00 Patient Secure Msg [facility] 1.0.114 350.1.13.10 4.2.7.2.686 [id number] 113 [id number] [facility] 2021-11-27 00:00:00 2021-11-27 00:00:00 Telephone [facility] 1.2840.114 350.1.13.10 4.2.7.2.686 [id number] [facility] 2021-11-26 11:00:00 2021-11-26 11:56:17 Outpatient R [facility] [id number] [facility] 2021-11-26 11:00:00 2021-11-26 11:56:17 Routine Visit [facility] 1.840.114 350.1.13.10 4.2.7.2.686 [id number] 113 [id number] [facility] 2021-11-05 00:00:00 2021-11-05 00:00:00 Patient Secure Oumou Joseph [facility] 1.2840.114 350.1.13.10 4.2.7.2.686 [id number] 113 [id number] [facility] 2021-11-05 00:00:00 2021-11-05 00:00:00 Telephone [facility] 1.840.114 350.1.13.10 4.2.7.2.686 [id number] 113 [id number] [facility] 2021-11-05 00:00:00 2021-11-05 00:00:00 Letter (Out) [facility] 1.2840.114 350.1.13.10 4.2.7.2.686 [id number] 113 [id number] [facility] 2021-11-03 00:00:00 2021-11-03 00:00:00 Telephone [facility] 1.20.114 350.1.13.10 4.2.7.2.686 [id number] 113 [id number] [facility] 2021-10-29 11:00:00 2021-10-29 11:40:26 Outpatient R OUMOU FREEMAN [facility] [id number] [facility] 2021-10-29 11:00:00 2021-10-29 11:40:26 Routine Visit Pérezvera [facility] 1..114 350.1.13.10 4.2.7.2.686 [id number] 113 [id number] [facility] 2021-10-12 15:00:00 2021-10-12 15:38:54 Station Manager Visit 2[facility] Room Aravind Fisher [facility] 1.84.114 350.1.13.10 4.2.7.2.686 [id number] 104 [id number] [facility] 2021-10-12 15:00:00 2021-10-12 15:38:54 Outpatient P ARAVIND FISHER [facility] [id number] [facility] 2021-10-12 15:00:00 2021-10-12 15:00:00 Outpatient P ARAVIND FISHER [facility] [id number] [facility] 2021-10-01 11:00:00 2021-10-01 11:32:02 Outpatient R PHU FREEMANRIELLE [facility] [id number] [facility] 2021-10-01 11:00:00 2021-10-01 11:32:02 Routine Visit [facility] 1..114 350.1.13.10 4.2.7.2.686 [id number] [facility] 2021-10-01 11:00:00 2021-10-01 11:32:02 Outpatient R PHU FREEMANRIELLE [facility] [id number] [facility] 2021-10-01 11:00:00 2021-10-01 11:32:02 Outpatient R OUMOU FREEMAN [facility] [id number] [facility] 2021-09-10 11:00:00 2021-09-10 11:46:47 Outpatient R ISIS PLASENCIA [facility] [id number] [facility] 2021-09-10 11:00:00 2021-09-10 11:46:47 Outpatient R ISIS PLASENCIA [facility] [id number] [facility] 2021-09-10 11:00:00 2021-09-10 11:46:47 Outpatient R ISIS PLASENCIA [facility] [id number] [facility] 2021-09-10 11:00:00 2021-09-10 11:00:00 Outpatient R ISIS PLASENCIA [facility] [id number] [facility] 2021-09-07 22:26:00 2021-09-08 00:14:00 Emergency X DANE YAMILEX [facility] E[facility] [id number] [facility] 2021-09-07 22:26:00 2021-09-08 00:14:00 Emergency Yamilex Vela [facility] 1.2.840.114 350.1.13.10 4.2.7.2.686 [id number] [facility] 2021-09-07 22:26:00 2021-09-08 00:14:00 Emergency YAMILEX CHACON [facility] E[facility] [id number] [facility] 2021-09-07 22:26:00 2021-09-08 00:14:00 Emergency YAMILEX CHACON [facility] ERT [id number] [facility] 2021-09-06 09:14:00 2021-09-06 12:24:00 Emergency Yamilex Stephens [facility] 1.2.840.114 350.1.13.10 4.2.7.2.686 [id number] [facility] 2021-09-06 09:14:00 2021-09-06 12:24:00 Emergency X YAMILEX STEPHENS [facility] E[facility] [id number] [facility] 2021-09-06 09:14:00 2021-09-06 12:24:00 Emergency X YAMILEX STEPHENS [facility] ERT [id number] [facility] 2021-09-06 09:14:00 2021-09-06 12:24:00 Emergency X YAMILEX STEPHENS [facility] ERT [id number] [facility] 2021-08-28 14:15:00 2021-08-28 15:31:44 Outpatient Charlene JENNINGSJESÚS [facility] [id number] [facility] 2021-08-28 14:15:00 2021-08-28 15:31:44 Initial Visit Pgy1 Oumou Freeman Perry L [facility] 1..840.114 350.1.13.10 4.2.7.2.686 [id number] [facility] 2021-08-28 13:45:00 2021-08-28 15:29:00 Outpatient Charlene JENNINGS JESÚS [facility] [id number] [facility] 2021-08-28 13:45:00 2021-08-28 15:29:00 [facility] [id number] [facility] 2021-08-28 00:00:00 2021-08-28 00:00:00 Orders Only Doctor Unassigned, [place] [facility] 1.840.114 350.1.13.10 4.2.7.2.686 [id number] [facility] 2021-05-27 15:28:00 2021-05-27 15:28:00 Outpatient Inessa Emmanuel CHW CHW [id number] [facility] 2021-04-23 18:30:00 2021-04-23 18:30:00 Outpatient Doc Mccormick W CHW [id number] [facility] 2020-09-15 14:09:00 2020-09-15 14:09:00 Outpatient Inessa Emmanuel Rafael W [id number] [facility] 2020-09-15 14:09:00 2020-09-15 14:09:00 Outpatient Inessa Emmanuel Rafael W [id number] [facility] 2020-09-15 14:00:00 2020-09-15 14:00:00 [facility] Inessa [facility] [id number] 2020-08-28 15:24:00 2020-08-28 15:24:00 Outpatient Inessa Emmanuel [facility] [id number] [facility] 2019-12-04 13:14:00 2019-12-04 13:14:00 Outpatient Ye Bettencourt [facility] [id number] [facility] 2019-12-01 20:15:31 2019-12-01 23:28:[facility] 1.2.840.114 350.1.13.10 4.2.7.2.686 [id number] [facility] 2019-12-01 20:15:31 2019-12-01 23:28:00 Emergency X BISI VALLADARES [facility] E[facility] [id number] [facility] 2019-12-01 20:15:31 2019-12-01 23:28:00 [facility] 1.2.840.114 350.1.13.10 4.2.7.2.686 [id number] 2019-09-21 14:20:00 2019-09-21 14:20:00 Outpatient Inessa Emmanuel [facility] [id number] [facility] Results Test Description Test Time Test Comments Results Result Co mments Source [facility] [id number] 19:30:00* Test Item Value Reference Range Interpretation Comme nts POCT PREG (test code = 1605) Negative On board controls acceptable with C Line (test code = 3574) Yes POCT PREG LOT # (test code = 3575) POCT PREG TEST DATE ( test code = 3576) [facility] with [id number] 11:33:59* Test Item Value Reference Range Interpretation Comme nts WBC (test code = 6690-2) See_Comment H [Automated message] The system which generated this result transmitted reference range: 4.30 - 11.10 10*3/?L. The reference range was not used to interpret this result as normal/abnormal. RBC (test code = 789-8) See_Comment L [Automated message] The system which generated this result transmitted reference range: 3.93 - 5.25 10*6/?L. The reference range was not used to interpret this result as normal/abnormal. HGB (test code = 718-7) 7.9 g/dL 11.6-15 L HCT (test code = 4544-3) 24.7 % 35.7-45.2 L MCV (test code = 787-2) 91.8 fL 80.6-95.5 MCH (test code = 785-6) 29.4 pg 25.9-32.8 MCHC (test code = 786-4) 32.0 g/dL 31.6-35.1 RDW-SD (test code = 37019-7) 48.4 fL 39-49.9 RDW-CV (test code = 788-0) 14.5 % 12-15.5 PLT (test code = 777-3) See_Comment [Automated message] The system which generated this result transmitted reference range: 166 - 358 10*3/?L. The reference range was not used to interpret this result as normal/abnormal. MPV (test code = 77473-4) 11.0 fL 9.5-12.9 NRBC/100 WBC (test code = 9245363840) See_Comment [Automated message] The system which generated this result transmitted reference range: 0.0 - 10.0 /100 WBCs. The reference range was not used to interpret this result as normal/abnormal. NRBC x10^3 (test code = 2921693753) See_Comment [Automated message] The system which generated this result transmitted reference range: 10*3/?L. The reference range was not used to interpret this result as normal/abnormal. GRAN MAT (NEUT) % (test code = 770-8) 81.3 % IMM GRAN % (test code = 0897956215) 0.50 % LYMPH % (test code = 736-9) 12.8 % MONO % (test code = 5905-5) 5.1 % EOS % (test code = 713-8) 0.1 % BASO % (test code = 706-2) 0.2 % GRAN MAT x10^3(ANC) (test code = 3680375321) 13.38 10*3/uL 1.88-7.09 H IMM GRAN x10^3 (test code = 1283192930) 0.09 10*3/uL 0-0.06 H LYMPH x10^3 (test code = 731-0) 2.11 10*3/uL 1.32-3.29 MONO x10^3 (test code = 742-7) 0.84 10*3/uL 0.33-0.92 EOS x10^3 (test code = 711-2) 0.03-0.39 L BASO x10^3 (test code = 704-7) 0.03 10*3/uL 0.01-0.07 Lab Interpretation (test code = 65774-0) Abnormal [facility] (D) IMMUNE [id number] 12:15:40* Test Item Value Reference Range Interpretation Comme nts RHIG CANDIDATE? (test code = 5055) No- see comment Patient is not a candidate for RhIg- Patient is Rh Positive.Performed at [facility] Laboratory Services - [facility] Blood [place] [id number] Free: [phone] No. [id number] [facility] (D) IMMUNE [id number] 12:15:40* Test Item Value Reference Range Interpretation Comme nts RHIG CANDIDATE? (test code = 5055) No- see comment Patient is not a candidate for RhIg- Patient is Rh Positive.Performed at [facility] Laboratory Services - [facility] Blood [address] [address] Free: [phone] No. [id number] [facility] [id number] 05:40:28* Test Item Value Reference Range Interpretation Comme nts VENOUS BASE EXCESS, CORD (test code = 5023589225) mEq/L VENOUS PH, CORD (test code = 7025697788) 7.25-7.45 VENOUS PC02, CORD (test code = 4287239578) See_Comment [Automated messa ge] The system which generated this result transmitted reference range: 27 - 49 mmHg. The reference range was not used to interpret this result as normal/abnormal. VENOUS PO2, CORD (test code = 6356736459) See_Comment [Automated me ssage] The system which generated this result transmitted reference range: 17 - 41 mmHg. The reference range was not used to interpret this result as normal/abnormal. VENOUS BICARBONATE, CORD (test code = 5262959682) See_Comment [Automated messa ge] The system which generated this result transmitted reference range: 12 - 29 mEq/L. The reference range was not used to interpret this result as normal/abnormal. [facility] CORD [id number] 05:40:28* Test Item Value Reference Range Interpretation Comme nts VENOUS BASE EXCESS, CORD (test code = 9043897668) mEq/L VENOUS PH, CORD (test code = 2924463683) 7.25-7.45 VENOUS PC02, CORD (test code = 7931062879) See_Comment [Automated messa ge] The system which generated this result transmitted reference range: 27 - 49 mmHg. The reference range was not used to interpret this result as normal/abnormal. VENOUS PO2, CORD (test code = 0164356435) See_Comment [Automated me ssage] The system which generated this result transmitted reference range: 17 - 41 mmHg. The reference range was not used to interpret this result as normal/abnormal. VENOUS BICARBONATE, CORD (test code = 1934889850) See_Comment [Automated messa ge] The system which generated this result transmitted reference range: 12 - 29 mEq/L. The reference range was not used to interpret this result as normal/abnormal. [facility] [id number] 05:38:02* Test Item Value Reference Range Interpretation Comme nts BASE EXCESS, CORD (test code = 5446160214) mEq/L AC PH, CORD (BEAKER) (test code = 2035963091) 7.18-7.38 PC02, CORD (test code = 7252330183) See_Comment [Automated messa ge] The system which generated this result transmitted reference range: 32 - 66 mmHg. The reference range was not used to interpret this result as normal/abnormal. PO2, CORD (test code = 0173485645) See_Comment [Automated messa ge] The system which generated this result transmitted reference range: 10 - 30 mmHg. The reference range was not used to interpret this result as normal/abnormal. BICARBONATE, CORD (test code = 8483697582) See_Comment [Automated messa ge] The system which generated this result transmitted reference range: 17 - 27 mEq/L. The reference range was not used to interpret this result as normal/abnormal. [facility] CORD [id number] 05:38:02* Test Item Value Reference Range Interpretation Comme nts BASE EXCESS, CORD (test code = 5272355964) mEq/L AC PH, CORD (BEAKER) (test code = 4507922137) 7.18-7.38 PC02, CORD (test code = 5343399522) See_Comment [Automated messa ge] The system which generated this result transmitted reference range: 32 - 66 mmHg. The reference range was not used to interpret this result as normal/abnormal. PO2, CORD (test code = 4840037878) See_Comment [Automated messa ge] The system which generated this result transmitted reference range: 10 - 30 mmHg. The reference range was not used to interpret this result as normal/abnormal. BICARBONATE, CORD (test code = 6513529183) See_Comment [Automated messa ge] The system which generated this result transmitted reference range: 17 - 27 mEq/L. The reference range was not used to interpret this result as normal/abnormal. [facility] HospitalGAL[facility] ONLY - SYPHILIS [id number] 14:55:49* Test Item Value Reference Range Interpretation Comme [facility] Syphilis IgG/IgM (test code = 85976-2) Non-reactive Non-reactive KASEY (test code = KASEY) Non-reactive - No serologic evidence of T. pallidum infection. Cannot exclude incubating or early syphilis. Submit a second specimen in 2-4 weeks if syphilis is clinically suspected. Equivocal - Further testing to follow. Reactive - Further testing to follow. Lab Interpretation (test code = 36603-6) Normal [facility] - SYPHILIS [id number] 14:55:49* Test Item Value Reference Range Interpretation Comme nts Syphilis IgG/IgM (test code = 35801-3) Non-reactive Non-reactive KASEY (test code = KASEY) Non-reactive - No serologic evidence of T. pallidum infection. Cannot exclude incubating or early syphilis. Submit a second specimen in 2-4 weeks if syphilis is clinically suspected. Equivocal - Further testing to follow. Reactive - Further testing to follow. Lab Interpretation (test code = 19209-9) Normal [facility] B Surface [id number] 18:40:32 * Test Item Value Reference Range Interpretation Comme nts HBsAg Semi-Quantitative (damari t code = 5195-3) Negative Negative [facility] B Surface [id number] 18:40:32 * Test Item Value Reference Range Interpretation Comme nts HBsAg Semi-Quantitative (damari t code = 5195-3) Negative Negative [facility]Type and Screen - ONCE [id number] 18:10:27 * Test Item Value Reference Range Interpretation Comme nts ABO & RH (test code = 20) B POSITIVE Performed at [facility] Laboratory Services - [address] Free: [phone] No. [id number] IAT (test code = 1185) Negative Performed at [facility] Laboratory Services - [address] Free: [phone] No. [id number] [facility]Type and Screen - ONCE [id number] 18:10:27 * Test Item Value Reference Range Interpretation Comme nts ABO & RH (test code = 20) B POSITIVE Performed at [facility] Laboratory Services - [address] Free: [phone] No. [id number] IAT (test code = 1185) Negative Performed at [facility] Laboratory Services - [address] Free: [phone] No. [id number] [facility] HospitalPOCT URINALYSIS GLUCOSE & [id number] 15:01:00* Test Item Value Reference Range Interpretation Comme nts POCT U PROT (test code = 3259) negative Negative - Negat prashant POCT U GLU (test code = 3256) negative Negative - Negati ve Lab Interpretation (test cod e = 51974-3) Normal [facility] HospitalPOKY URINALYSIS GLUCOSE & [id number] 15:25:00* Test Item Value Reference Range Interpretation Comme nts POCT U PROT (test code = 3259) NEGATIVE Negative - Negat prashant POCT U GLU (test code = 3256) NEGATIVE Negative - Negati ve Lab Interpretation (test cod e = 25413-5) Normal [facility] HospitalHIV 1/2 AG-AB WITH [id number] 19:12:24* Test Item Value Reference Range Interpretation Comme nts HIV Semi-quantitative (test code = 75874-3) Negative Negative KASEY (test code = KASEY) Non-reactive for HIV-1 antigen and HIV-1/HIV-2 antibodies. ?No laboratory evidence of HIV infection. ?Repeat in 2-4 weeks if acute HIV infection is suspected. [facility] HospitalHEPATIC FUNCTION PANEL (74499) (ALB,T.PRO,BILI T,BU/BC,ALT,AST,ALK PHOS)2022-02-22 18:51:24* Test Item Value Reference Range Interpretation Comme nts TOTAL BILI (test code = 6691227971) 0.2 mg/dL 0.1-1.1 BILI UNCON (test code = 0047164667) 0.2 mg/dL 0.1-1.1 BILI CONJ (test code = 5420816198) 0.0 mg/dL 0.0-0.3 T PROTEIN (test code = 2265029089) 7.0 g/dL 6.3-8.2 ALBUMIN (test code = 6165933736) 3.9 g/dL 3.5-5.0 ALK PHOS (test code = 1569222560) 89 U/L 34-122 ALTv (test code = 1742-6) 12 U/L 5-35 AST(SGOT) (test code = 0441130651) 19 U/L 13-40 Lab Interpretation (test cod e = 53016-4) Normal [facility] METABOLIC PANEL (NA, K, CL, CO2, GLUCOSE, BUN, CREATININE, CA)2022-02-22 18:51:24* Test Item Value Reference Range Interpretation Comme nts NA (test code = 0611731043) 136 mmol/L 135-145 K (test code = 5359340011) 3.9 mmol/L 3.5-5.0 CL (test code = 4382313821) 105 mmol/L 98-108 CO2 TOTAL (test code = 0184314080) 23 mmol/L 23-31 AGAP (test code = 4807221522) 2-16 BUN (test code = 7044446534) 11 mg/dL 7-23 GLUCOSE (test code = 7909780834) 123 mg/dL 70-110 H CREATININE (test code = 6948514823) 0.49 mg/dL 0.50-1.04 L CALCIUM (test code = 1577210032) 9.5 mg/dL 8.6-10.6 eGFR (test code = 0271241213) mL/min/1.73m2 KASEY (test code = KASEY) Association [...] imaging tests). Lab Interpretation (test code = 48828-7) [facility]normal [facility] [id number] 18:49:23* Test Item Value Reference Range Interpretation Comme nts GLUC 1 HR (test code = 9714908883) 122 mg/dL 120-170 Lab Interpretation (test cod e = 52680-6) Normal [facility] [id number] 18:26:58* Test Item Value Reference Range Interpretation Comme nts WBC (test code = 6690-2) See_Comment H [Automated [place]la[place] ge] The system which generated this result [...] 32.5 g/dL 31.6-35.1 RDW-SD (test code = 88789-8) 43.1 fL 39.0-49.9 RDW-CV (test code = 788-0) 12.8 % 12.0-15.5 PLT (test code = 777-3) See_Comment H [Automated messa ge] The system which generated this result transmitted reference range: 166 - 358 10*3/?L. The reference range was not used to interpret this result as normal/abnormal. MPV (test code = 63539-9) 10.1 fL 9.5-12.9 NRBC/100 WBC (test code = 1920356323) See_Comment [Automated me ssage] The system which generated this result transmitted reference range: 0.0 - 10.0 /100 WBCs. The reference range was not used to interpret this result as normal/abnormal. NRBC x10^3 (test code = 1720426788) <0.01 See_Comment [Automated messa ge] The system which generated this result transmitted reference range: 10*3/?L. The reference range was not used to interpret this result as normal/abnormal. GRAN MAT (NEUT) % (test code = 770-8) 79.3 % IMM GRAN % (test code = 9469973007) 0.50 % LYMPH % (test code = 736-9) 16.0 % MONO % (test code = 5905-5) 3.6 % EOS % (test code = 713-8) 0.3 % BASO % (test code = 706-2) 0.3 % GRAN MAT x10^3(ANC) (test code = 1958464241) 9.13 10*3/uL 1.88-7.09 H IMM GRAN x10^3 (test code = 3044348696) 0.06 10*3/uL 0.00-0.06 LYMPH x10^3 (test code = 731-0) 1.84 10*3/uL 1.32-3.29 MONO x10^3 (test code = 742-7) 0.41 10*3/uL 0.33-0.92 EOS x10^3 (test code = 711-2) 0.03 10*3/uL 0.03-0.39 BASO x10^3 (test code = 704-7) 0.03 10*3/uL 0.01-0.07 Lab Interpretation (test code = 17700-1) Abnormal [facility]"
--- NOTE | 2024-02-13 05:40 | EDPHYS ---
Physician Documentation [facility] Name: Nat Ding Age: 23 yrs Sex: Female : 2000 Arrival Date: 02/13/2024 Time: 05:24 Bed 6 Private MD: ED Physician Miki Marquez HPI: 02/12 05:40 This 23 yrs old Female presents to ER via Ambulatory with complaints of ec2 Congestion, Drainage From Eye, Blurred Vision. 05:40 Patient arrives today for URI signs and symptoms as well as drainage from the eyes. ec2 Patient reports that she is experiencing several days of cough and cold symptoms which has since been improving. Patient reports that were brought in this morning and was that she had noticed drainage from the eyes bilaterally and is having some crusting. Patient reports that she does not wear contact lenses. Patient reports no fevers, no vomiting, no diarrhea. Patient has been taking owsp-lbt-tamqnzg medications, ibuprofen, NyQuil to help with her cough and cold symptoms which have been improving it.. [employer]: 05:36 LMP 01/13/2024, unknown kb3 Historical: - Allergies: 05:36 No Known Allergies; kb3 05:36 No Known Allergies; bm8 - Home Meds: 05:36 None [Active]; kb3 - PMHx: 05:36 None; kb3 - PSHx: 05:36 section; kb3 05:36 section; bm8 - Immunization history:: Adult Immunizations up to date, Client reports receiving the 2nd dose of the Covid vaccine, Adult Immunizations up to date. - Infectious Disease History:: Denies. Denies. - Social history:: Smoking status: Patient denies any tobacco usage or history of. Patient uses street drugs, marijuana, Smoking status: Patient denies any tobacco usage or history of. Patient uses alcohol, occasionally. street drugs, marijuana. ROS: 05:40 Constitutional: as per hpi ec2 Exam: 05:40 Constitutional: GEN: NAD Head: atraumatic Eyes: EOMI, bilateral conjunctivitis, ec2 intact capillary response bilaterally. Chemosis. Ears: External ears are normal. Mouth: No posterior pharyngeal erythema, no exudates, no anterior cervical lymphadenopathy noted. CV: r slight tachycardia LUNGS: no respiratory distress ABD: non-distended SKIN: no evidence of rashes MSK: no evidence of trauma NEURO: moves all extremities equally Vital Signs: 05:33 BP 175 / 116; Pulse 102; Resp 20; Temp 98.1; Pulse Ox 100% ; Weight 133.81 kg; Height 5 kb3 ft. 5 in. ; Pain 8/10; 05:45 BP 160 / 112; Pulse 90; Resp 18; Pulse Ox 99% ; kb3 05:50 BP 151 / 89; Pulse 86; Resp 17; Temp 98.1; Pulse Ox 100% ; Pain 2/10; bm8 05:33 Body Mass Index 49.09 (133.81 kg, 165.1 cm) kb3 05:33 Pain Scale: Adult kb3 05:50 Pain Scale: Adult bm8 [place] Coma Score: 05:36 Eye Response: spontaneous(4). Motor Response: obeys commands(6). Verbal Response: bm8 oriented(5). Total: 15. 05:50 Eye Response: spontaneous(4). Motor Response: obeys commands(6). Verbal Response: bm8 oriented(5). Total: 15. MDM: 05:27 Patient medically screened. ec2 05:40 Data reviewed: vital signs. ED course: Patient arrives today for evaluation of URI ec2 signs symptoms as well as eye concerns. Examination remarkable for HEENT findings as noted above. Will start the patient on erythromycin ointment for conjunctivitis, possible bacterial. Considered processes including differential diagnosis of viral infection, bacterial conjunctivitis, pneumonia. Ultimately patient is improving from an upper respiratory standpoint, I have a low suspicion for pneumonia given the patient's well appearance and lack of specific respiratory complaints. Will discharge home. Return precautions given.. Administered Medications: 05:40 Drug: ERYTHromycin Ophthalmic Ointment 1 application Ophthalmic once; apply to each eye bm8 Route: Ophthalmic; Site: both eyes; 05:50 Follow up: Response: No adverse reaction bm8 Disposition Summary: 02/13/24 05:39 Discharge Ordered Notes: Location: Home ec2 Condition: Stable ec2 Diagnosis - Viral infection, unspecified ec2 - Unspecified acute conjunctivitis, bilateral ec2 Followup: ec2 - With: Private Physician - When: - Reason: Re-evaluation by your physician Discharge Instructions: - Discharge Summary Sheet ec2 - Bacterial Conjunctivitis, Adult, Sphq-mi-Ennw ec2 - Viral Illness, Adult ec2 Forms: - Medication Reconciliation Form ec2 - Antibiotic Education ec2 - Prescription Opioid Use ec2 - Patient Portal Instructions ec2 - Leadership Thank You Letter ec2 Prescriptions: - Erythromycin 5 mg/gram (0.5 %) Ophthalmic ointment - apply 1 centimeter OPHTHALMIC route 2-3 times daily for 7 days; 1 unit; ec2 Refills: 0, Product Selection Permitted Signatures: Jordana Adame RN RN kb3 Miki Marquez MD MD ec2 Tico Gaines RN RN bm8
--- NOTE | 2024-02-13 05:40 | ER ---
Nurse's Notes [facility] Name: Nat Ding Age: 23 yrs Sex: Female : 2000 Arrival Date: 02/13/2024 Time: 05:24 Bed 6 Private MD: Diagnosis: Viral infection, unspecified;Unspecified acute conjunctivitis, bilateral Presentation: 02/12 05:33 Chief complaint: Patient states: Nasal congestion, sore throat, yellow drainage in kb3 bilateral eyes x3 days. Coronavirus screen: Vaccine status: Patient reports receiving the 2nd dose of the covid vaccine. Client denies travel out of the [place] in the last 14 days. Ebola Screen: Patient negative for fever greater than or equal to 101.5 degrees Fahrenheit, and additional compatible Ebola Virus Disease symptoms Patient denies exposure to infectious person. Patient denies travel to an Ebola-affected area in the 21 days before illness onset. Resp Distress? No respiratory distress is noted at this time. Initial Sepsis Screen: Does the patient meet any 2 criteria? No. Patient's initial sepsis screen is negative. Does the patient have a suspected source of infection? No. Patient's initial sepsis screen is negative. Risk Assessment: Do you want to hurt yourself or someone else? Patient reports no desire to harm self or others. Onset of symptoms was February 10, 2024. 05:33 Method Of Arrival: Ambulatory 3 05:33 Acuity: KESHAWN 4 kb3 Triage Assessment: 05:36 General: Appears in no apparent distress. Behavior is calm, cooperative. EENT: Eyes kb3 with exudate noted from inner aspect of conjuctiva of right eye and inner aspect of conjunctiva of left eye Reports nasal congestion. Respiratory: No deficits noted. HAT IRONER: 05:36 LMP 01/13/2024, unknown kb3 Historical: - Allergies: 05:36 No Known Allergies; kb3 05:36 No Known Allergies; bm8 - Home Meds: 05:36 None [Active]; kb3 - PMHx: 05:36 None; kb3 - PSHx: 05:36 section; kb3 05:36 section; bm8 - Immunization history:: Adult Immunizations up to date, Client reports receiving the 2nd dose of the Covid vaccine, Adult Immunizations up to date. - Infectious Disease History:: Denies. Denies. - Social history:: Smoking status: Patient denies any tobacco usage or history of. Patient uses street drugs, marijuana, Smoking status: Patient denies any tobacco usage or history of. Patient uses alcohol, occasionally. street drugs, marijuana. Screenin:36 [facility] ED Fall Risk Assessment (Adult) History of falling in the last 3 months, bm8 including since admission No falls in past 3 months (0 pts) Confusion or Disorientation No (0 pts) Intoxicated or Sedated No (0 pts) Impaired Gait No (0 pts) Mobility Assist Device Used No (0 pt) Altered Elimination No (0 pt) Score/Fall Risk Level 0 - 2 = Low Risk Oriented to surroundings, Maintained a safe environment, Educated pt \T\ family on fall prevention, incl call for assistance when getting out of bed. 05:36 Abuse screen: Denies threats or abuse. Nutritional screening: No deficits noted. bm8 Nutritional screening: No deficits noted. Tuberculosis screening: No symptoms or risk factors identified. Assessment: 05:33 Reassessment: Patient appears in no apparent distress at this time. Patient and/or bm8 family updated on plan of care and expected duration. Pain level reassessed. Patient is alert, oriented x 3, equal unlabored respirations, skin warm/dry/pink. General: Appears in no apparent distress. uncomfortable, Behavior is calm, cooperative, appropriate for age. Pain: Complains of pain in throat and eyes. Neuro: Level of Consciousness is awake, alert, obeys commands, Oriented to person, place, time, situation, Appropriate for age. Cardiovascular: No deficits noted. Denies chest pain, lightheadedness, shortness of breath, Heart tones S1 S2 present Capillary refill < 3 seconds in bilateral fingers toes Patient's skin is warm and dry. Respiratory: Airway is patent Trachea midline Respiratory effort is even, unlabored, Respiratory pattern is regular, symmetrical, Sputum is thick, yellow Breath sounds are clear bilaterally. Parent/caregiver reports the patient having cough that is productive. GI: No deficits noted. No signs and/or symptoms were reported involving the gastrointestinal system. : No deficits noted. No signs and/or symptoms were reported regarding the genitourinary system. EENT: Throat is clear is pink with gag reflex present, Reports nasal congestion sore throat. Derm: No deficits noted. No signs and/or symptoms reported regarding the dermatologic system. Musculoskeletal: No deficits noted. No signs and/or symptoms reported regarding the musculoskeletal system. 05:50 Reassessment: Patient appears in no apparent distress at this time. Patient and/or bm8 family updated on plan of care and expected duration. Pain level reassessed. Patient is alert, oriented x 3, equal unlabored respirations, skin warm/dry/pink. Patient states feeling better. Patient states symptoms have improved. Vital Signs: 05:33 BP 175 / 116; Pulse 102; Resp 20; Temp 98.1; Pulse Ox 100% ; Weight 133.81 kg; Height 5 kb3 ft. 5 in. ; Pain 8/10; 05:45 BP 160 / 112; Pulse 90; Resp 18; Pulse Ox 99% ; kb3 05:50 BP 151 / 89; Pulse 86; Resp 17; Temp 98.1; Pulse Ox 100% ; Pain 2/10; bm8 05:33 Body Mass Index 49.09 (133.81 kg, 165.1 cm) kb3 05:33 Pain Scale: Adult kb3 05:50 Pain Scale: Adult bm8 [place] Coma Score: 05:36 Eye Response: spontaneous(4). Motor Response: obeys commands(6). Verbal Response: bm8 oriented(5). Total: 15. 05:50 Eye Response: spontaneous(4). Motor Response: obeys commands(6). Verbal Response: bm8 oriented(5). Total: 15. ED Course: 05:26 Patient arrived in ED. ec2 05:26 Miki Marquez MD is Attending Physician. ec2 05:33 Tico Gaines, RN is Primary Nurse. bm8 05:36 Triage completed. kb3 05:36 Arm band placed on right wrist. Patient placed in an exam room, on a stretcher. kb3 05:36 Patient has correct armband on for positive identification. Call light in reach. Side bm8 rails up X 1. Adult w/ patient. Provided Education on: post er care. Client placed on continuous cardiac and pulse oximetry monitoring. NIBP monitoring applied. Pulse ox on. NIBP on. 05:36 No provider procedures requiring assistance completed. bm8 05:46 Patient did not have IV access during this emergency room visit. kb3 Administered Medications: 05:40 Drug: ERYTHromycin Ophthalmic Ointment 1 application Ophthalmic once; apply to each eye bm8 Route: Ophthalmic; Site: both eyes; 05:50 Follow up: Response: No adverse reaction bm8 Medication: 05:36 VIS not applicable for this client. bm8 Outcome: 05:39 Discharge ordered by . [email or web address] 05:46 Discharged to home ambulatory, kb3 05:46 Condition: stable 05:46 Discharge instructions given to patient, family, Instructed on discharge instructions, follow up and referral plans. medication usage, Demonstrated understanding of instructions, follow-up care, medications, Prescriptions given X 1, 05:51 Patient left the ED. bm8 Signatures: Jordana Adame, RN RN kb3 Miki Marquez MD MD ec2 Tico Gaines RN RN bm8
[2024-02-13] MEDS ORDERED: ERYTHROMYCIN 3.5GM OPTH OINT ONE (05:45)
[2024-02-13 05:57] VITALS: TEMP 98.1
[2024-02-13 06:22] VITALS: BP 151/89; O2SAT 100
== END 2024-02-13 05:51 | disposition home or self-care (01) ==
LOC: ER 05:24
DX: B34.9 Viral infection, unspecified (principal); H10.33 Unspecified acute conjunctivitis, bilateral
CPT/HCPCS: 99284